=== PATIENT | male | born 1940 | race Caucasian/White ===

== ENCOUNTER 2016-05-20 17:49 | Observation (INO) | payer OTHER ==
[~2016-05-20] VITALS: Ht 165.1 cm; Wt 83.0 kg
[~2016-05-20 17:49] MED LIST: ASPI325T PO; ATOR80TA PO; DIAZ10TA PO; FISH100020 PO; GLYB1TAB51 PO; LACT PO; LISI10TA PO; METF-324 OR; METR-1 PO; RANI150 PO
[2016-05-20 18:09] VITALS: BP 144/71; PULSE 100; RESP 20; TEMP 98.6; O2SAT 96
--- NOTE | 2016-05-20 18:43 | RADRPT ---
EXAM DATE/TIME: 05/20/2016 18:24 [facility] COMPARISON: CHEST SINGLE AP, May 04, 2016, 3:29. INDICATIONS : Tingling in left hand. MEDICAL HISTORY : 3 heart attacks. SURGICAL HISTORY : None. ENCOUNTER: Initial ACUITY: 1 day PAIN SCORE: 0/10 LOCATION: chest FINDINGS: A single view of the chest demonstrates the lungs to be symmetrically aerated without evidence of mas s, infiltrate or effusion. The cardiomediastinal contours are unremarkable. Osseous structures are intact. CONCLUSION: Normal examination for a patient of this age. No significant change has occurred. Baltazar Palacios MD on May 20, 2016 at 18:40 Board Certified Radiologist. This report was verified electronically.
[2016-05-20 18:53] LABS: BLOOD, URINE NEG (NEG); COMMENT (UR) CULT NOT INDICATED; CULTURE IF INDICATED CULT NOT INDICATED; GLUCOSE,URINE NEG (NEG); KETONE, URINE NEG (NEG); NITRITE,URINE NEG (NEG); URINE COLOR LIGHT-YELLOW (YELLW/STRAW)
--- NOTE | 2016-05-20 19:00 | PD ---
HPI Chief Complaint: Numbness/Tingling Time Seen by Provider: 18:48 Travel History International Travel<30 days: No Contact w/Intl Traveler<30days: No Traveled to known affect area: No History of Present Illness HPI The patient is a 76-year-old male who presents emergency department for numbness and tingling. The patient states he developed symptoms 2 days ago the left hand with numbness and tingling of the volar aspect of the entire hand. The patient felt like it was pins and needles and then completely numb. He denied any weakness of the left upper extremity. The patient then developed numbness of the perioral area and the lips. He also notes he said some intermittent numbness of the fourth and fifth digit on the right which has resolved. He denied any weakness or numbness of the lower extremities. The patient denies any history of known neuropathy, however, does have a history of diabetes which is controlled with metformin. He does have a history of heavy alcohol use, however, stopped drinking 20 years ago. The patient denies any difficulty with speech, does state he had dysarthria one week ago secondary to low blood glucose of 30. The [place] primary [place] [facility]. The patient does have a history of hypertension, hyperlipidemia, diabetes, and tobacco use. 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) Migraines: No Myocardial Infarction: Yes (X3) Radiation Therapy: No Renal Failure: No Seizures: No Sickle Cell Disease: No Sleep Apnea: No Thyroid Disease: No Ulcer: No Past Surgical History Abdominal Surgery: No AICD: No Appendectomy: Yes Arteriovenous Shunt: No Cardiac Surgery: Yes Coronary Stent: Yes (about 5 years ago) Ear Surgery: No Endocrine Surgery: No Eye Surgery: No Genitourinary Surgery: Yes (LEFT TESTICLE) Gynecologic Surgery: No Insulin Pump: No Joint Replacement: No Oral Surgery: No Pacemaker: No Thoracic Surgery: No Other Surgery: Yes Social History Alcohol Use: No Tobacco Use: Yes (3 PPD) Substance Use: No Allergies-Medications (Allergen,Severity, Reaction): Coded Allergies: Quinine (Verified Allergy, Severe, UPPER EXTREMITIES BLEED, 05/20/16) Penicillin (Verified Allergy, Mild, UNK, 05/20/16) Sulfa (Verified Allergy, Mild, UNK, 05/20/16) Reported Meds & Prescriptions Reported Meds & Active Scripts Active Reported Ibuprofen 600 Mg Tab 600 Mg PO BID Ranitidine (Ranitidine HCl) 150 Mg Tab 150 Mg PO BID Metformin ER (Metformin HCl) 1,000 Mg Conor 1,000 Mg PO BIDAC With evening meal Lisinopril 10 Mg Tab 10 Mg PO DAILY Glyburide 5 Mg Tab 5 Mg PO BID Take with meals at the same time each day Diazepam 10 Mg Tab 10 Mg PO TID PRN Atorvastatin (Atorvastatin Calcium) 80 Mg Tab 80 Mg PO HS Review of Systems Except as stated in HPI: all other systems reviewed are Neg General / Constitutional: No: Fever HENT: No: Lightheadedness Cardiovascular: No: Chest Pain or Discomfort Respiratory: No: Shortness of Breath Gastrointestinal: No: Nausea, Vomiting, Abdominal Pain Genitourinary: No: Dysuria Musculoskeletal: No: Weakness Neurologic: Positive: Paresthesia, Sensory Disturbance, No: Dizziness, Focal Abnormalities, Coordination Problem, Headache, Change in Mentation Physical Exam Narrative GENERAL: Awake, alert, 76-year-old male who appears his stated age and is in no acute respiratory distress. SKIN: Warm and dry. HEAD: Atraumatic. Normocephalic. EYES: Pupils equal and round. Pupils are 3 mm bilateral and reactive. Patient is able to see fingers at a distance of 2 feet without difficulty. I shocked her muscles are intact. ENT: No nasal bleeding or discharge. Mucous membranes pink and moist. Large.. NECK: Trachea midline. No JVD. CARDIOVASCULAR: Regular rate and rhythm. No murmur appreciated. RESPIRATORY: No accessory muscle use. Clear to auscultation. Breath sounds equal bilaterally. GASTROINTESTINAL: Abdomen soft, non-tender, nondistended. No rebound tenderness. MUSCULOSKELETAL: Chronic venous stasis changes of the lower extremity is bilateral with dry skin. NEUROLOGICAL: Awake and alert. No obvious cranial nerve deficits. Smile is symmetric. No dysarthria. Sensation is symmetric on the V1 and V2 as well as V3 distributions to soft touch. No drift of the upper or lower extremities. Slightly decreased sensation to left lower extremity to soft touch. Decreased sensation over the radial, median, and ulnar distribution of the left hand, but does not affect the left forearm. Left and right forearm are symmetric to soft touch bilaterally. Finger to nose is normal. PSYCHIATRIC: Appropriate mood and affect; insight and judgment normal. Data Data Last Documented VS Vital Signs Date Time Temp Pulse Resp B/P Pulse Ox O2 Delivery O2 Flow Rate FiO2 05/20/16 19:15 96 Room Air 05/20/16 19:15 98.9 89 20 139/65 Orders Electrocardiogram (05/20/16 18:12) Complete Blood Count With Diff (05/20/16 18:12) Basic Metabolic Panel (Bmp) (05/20/16 18:12) Ckmb (Isoenzyme) Profile (05/20/16 18:12) Troponin I (05/20/16 18:12) Chest, Single Ap (05/20/16 18:12) Iv Access Insert/Monitor (05/20/16 18:12) Ecg Monitoring (05/20/16 18:12) Oxygen Administration (05/20/16 18:12) Oximetry (05/20/16 18:12) Coag Profile (05/20/16 18:12) Urinalysis - C+S If Indicated (05/20/16 18:15) Ct Brain W/O Iv Contrast(Rout) (05/20/16 ) Ct Cerv Spine W/O Contrast (05/20/16 ) CKMB (05/20/16 18:21) CKMB% (05/20/16 18:21) Labs Laboratory Tests Test 05/20/16 18:21 White Blood Count 8.7 TH/MM3 Red Blood Count 5.10 MIL/MM3 Hemoglobin 15.0 GM/DL Hematocrit 43.5 % Mean Corpuscular Volume 85.3 FL Mean Corpuscular Hemoglobin 29.3 PG Mean Corpuscular Hemoglobin 34.4 % Concent Red Cell Distribution Width 14.8 % Platelet Count 227 TH/MM3 Mean Platelet Volume 9.2 FL Neutrophils (%) (Auto) 69.2 % Lymphocytes (%) (Auto) 19.2 % Monocytes (%) (Auto) 7.9 % Eosinophils (%) (Auto) 3.0 % Basophils (%) (Auto) 0.7 % Neutrophils # (Auto) 6.0 TH/MM3 Lymphocytes # (Auto) 1.7 TH/MM3 Monocytes # (Auto) 0.7 TH/MM3 Eosinophils # (Auto) 0.3 TH/MM3 Basophils # (Auto) 0.1 TH/MM3 CBC Comment DIFF FINAL Differential Comment Prothrombin Time 10.6 SEC Prothromb Time International 1.0 RATIO Ratio Activated Partial 26.8 SEC Thromboplast Time Urine Color LIGHT-YELLOW Urine Turbidity CLEAR Urine pH 7.0 Urine Specific [place] 1.011 Urine Protein NEG mg/dL Urine Glucose (UA) NEG mg/dL Urine Ketones NEG mg/dL Urine Occult Blood NEG Urine Nitrite NEG Urine Bilirubin NEG Urine Urobilinogen LESS THAN 2.0 MG/DL Urine Leukocyte Esterase NEG Urine RBC LESS THAN 1 /hpf Urine WBC LESS THAN 1 /hpf Microscopic Urinalysis Comment CULT NOT INDICATED Sodium Level 136 MEQ/L Potassium Level 4.2 MEQ/L Chloride Level 102 MEQ/L Carbon Dioxide Level 24.6 MEQ/L Anion Gap 9 MEQ/L Blood Urea Nitrogen 23 MG/DL Creatinine 1.10 MG/DL Estimat Glomerular Filtration 65 ML/MIN Rate Random Glucose 154 MG/DL Calcium Level 8.5 MG/DL Total Creatine Kinase 107 U/L Creatine Kinase MB 2.2 NG/ML Troponin I LESS THAN 0.02 NG/ML MDM Medical Decision Making Medical Screen Exam Complete: Yes Emergency Medical Condition: Yes Medical Record Reviewed: Yes Interpretation(s) EKG reveals normal sinus rhythm with a rate in 96. Low QRS voltage precordial leads. RSR prime in V1 with QRS 105 ms, incomplete right bundle branch block. Q wave noted in lead 3 and aVF. Last Impressions Chest X-Ray 05/20/162 Signed Impressions: Service Date/Time: Friday, May 20, 2016 18:24 - CONCLUSION: Normal examination for a patient of this age. No significant change has occurred. Baltazar Palacios MD Head CT 05/20/16 0000 Signed Impressions: Service Date/Time: Friday, May 20, 2016 18:57 - CONCLUSION: 1. No acute findings. Stable ischemic changes in the periventricular white matter compared with 2012. Baltazar Palacios MD Cervical Spine CT 05/20/16 0000 Signed Impressions: Service Date/Time: Friday, May 20, 2016 18:59 - CONCLUSION: 1. Focally severe degenerative disc disease at C5-6 with moderate to severe AP canal stenosis and likely impingement on the cord with bilateral bony neural foraminal encroachment. No acute bony abnormalities. Baltazar Palacios MD Laboratory Tests Test 05/20/16 18:21 White Blood Count 8.7 TH/MM3 Red Blood Count 5.10 MIL/MM3 Hemoglobin 15.0 GM/DL Hematocrit 43.5 % Mean Corpuscular Volume 85.3 FL Mean Corpuscular Hemoglobin 29.3 PG Mean Corpuscular Hemoglobin 34.4 % Concent Red Cell Distribution Width 14.8 % Platelet Count 227 TH/MM3 Mean Platelet Volume 9.2 FL Neutrophils (%) (Auto) 69.2 % Lymphocytes (%) (Auto) 19.2 % Monocytes (%) (Auto) 7.9 % Eosinophils (%) (Auto) 3.0 % Basophils (%) (Auto) 0.7 % Neutrophils # (Auto) 6.0 TH/MM3 Lymphocytes # (Auto) 1.7 TH/MM3 Monocytes # (Auto) 0.7 TH/MM3 Eosinophils # (Auto) 0.3 TH/MM3 Basophils # (Auto) 0.1 TH/MM3 CBC Comment DIFF FINAL Differential Comment Prothrombin Time 10.6 SEC Prothromb Time International 1.0 RATIO Ratio Activated Partial 26.8 SEC Thromboplast Time Urine Color LIGHT-YELLOW Urine Turbidity CLEAR Urine pH 7.0 Urine Specific [place] 1.011 Urine Protein NEG mg/dL Urine Glucose (UA) NEG mg/dL Urine Ketones NEG mg/dL Urine Occult Blood NEG Urine Nitrite NEG Urine Bilirubin NEG Urine Urobilinogen LESS THAN 2.0 MG/DL Urine Leukocyte Esterase NEG Urine RBC LESS THAN 1 /hpf Urine WBC LESS THAN 1 /hpf Microscopic Urinalysis Comment CULT NOT INDICATED Sodium Level 136 MEQ/L Potassium Level 4.2 MEQ/L Chloride Level 102 MEQ/L Carbon Dioxide Level 24.6 MEQ/L Anion Gap 9 MEQ/L Blood Urea Nitrogen 23 MG/DL Creatinine 1.10 MG/DL Estimat Glomerular Filtration 65 ML/MIN Rate Random Glucose 154 MG/DL Calcium Level 8.5 MG/DL Total Creatine Kinase 107 U/L Creatine Kinase MB 2.2 NG/ML Troponin I LESS THAN 0.02 NG/ML Differential Diagnosis Differential diagnoses includes neuropathy, cervical radiculopathy, B-12 deficiency, TIA, CVA, intracranial hemorrhage, carpal tunnel syndrome, ulnar compartment syndrome, hypocalcemia, hypokalemia. Narrative Course IV was established, labs are drawn and sent, and the patient was monitored in the emergency department. CT of the brain and cervical spine were ordered. Chest x-ray was ordered. EKG was ordered and interpreted. Calcium and potassium levels were sent to lab. Calcium and potassium are unremarkable. CT of the brain reveals chronic ischemic white periventricular changes, but no acute infarct. CT the cervical spine does reveal severe impingement at the C5 6 level with possible encroachment on the spinal cord. The patient may have CVA versus neuropathy from spinal stenosis, patient would benefit from MRI of the brain and cervical spine. The patient's primary physician is the [place] [facility]. Therefore, [facility] were paged for admission. The patient will have MRI to rule out CVAs the cause of the numbness to left upper extremity. Patient also have MRI of the cervical spine through evaluate for possible radiculopathy, spinal cord impingement, myelopathy affect in the left upper extremity. If MRI of the cervical spine is positive, patient may benefit from neurosurgical consultation. Patient is comfortable with this plan of care. Physician Communication Physician Communication [facility] were p[facility] for 23 hour observation. I discussed the patient with Dr. Brito who agrees with 23 hour observation. Diagnosis Primary Impression: Paresthesias Admitting Information Admitting Physician Requests: Observation Condition: Stable Manuel Garzon MD May 20, 2016 19:00
[2016-05-20 19:02] LABS: BASOPHIL # 0.1 TH/MM3 (0-0.2); BASOPHIL % 0.7 % (0.0-2.0); EOSINOPHIL # 0.3 TH/MM3 (0-0.4); HEMATOCRIT 43.5 % (39.0-51.0); HEMO FLAGS DIFF FINAL; LYMPH % 19.2 % (9.0-44.0); LYMPHOCYTE # 1.7 TH/MM3 (1.0-4.8); MEAN CELL VOLUME 85.3 FL (80.0-100.0); MEAN CORPUSCULAR HEMOGLOBIN 29.3 PG (27.0-34.0); MEAN CORPUSCULAR HGB CONC 34.4 % (32.0-36.0); MONO % 7.9 % (0.0-8.0); NEUT % 69.2 % (16.0-70.0); PLATELET COUNT 227 TH/MM3 (150-450); RED CELL DISTRIBUTION WIDTH 14.8 % (11.6-17.2); WHITE BLOOD COUNT 8.7 TH/MM3 (4.0-11.0)
[2016-05-20 19:08] LABS: APTT (PATIENT) 26.8 SEC (24.3-30.1); PROTHROMBIN TIME - PATIENT 10.6 SEC (9.8-11.6)
[2016-05-20 19:15] VITALS: BP 139/65; PULSE 89; RESP 20; TEMP 98.9; O2SAT 96
[2016-05-20 19:16] LABS: ANION GAP 9 MEQ/L (5-15); BICARBONATE 24.6 MEQ/L (21.0-32.0); BLOOD UREA NITROGEN 23 MG/DL (7-18); CHLORIDE 102 MEQ/L (98-107); CREATINE KINASE 107 U/L (39-308); GLOMERULAR FILTRATION RATE 65 ML/MIN (>89); POTASSIUM 4.2 MEQ/L (3.5-5.1); SODIUM (NA) 136 MEQ/L (136-145)
--- NOTE | 2016-05-20 19:16 | RADRPT ---
EXAM DATE/TIME: 05/20/2016 18:57 [facility] COMPARISON: No previous studies available for comparison. INDICATIONS : Numbness in left hand X 2 weeks. RADIATION DOSE: 56.35 CTDIvol (mGy) MEDICAL HISTORY : Cerebrovascular disease. Cardiovascular disease Hypertension. Diabetes SURGICAL HISTORY : None. ENCOUNTER: Initial ACUITY: 2 weeks PAIN SCALE: 3/10 LOCATION: cranial TECHNIQUE: Multiple contiguous axial images were obtained of the head. Using automated exposure control and adj ustment of the mA and/or kV according to patient size, radiation dose was kept as low as reasonably a chievable to obtain optimal diagnostic quality images. FINDINGS: CEREBRUM: The ventricles are normal for age. No evidence of midline shift, mass lesion, hemorrhage or acute in farction. No extra-axial fluid collections are seen. POSTERIOR FOSSA: The cerebellum and brainstem are intact. The 4th ventricle is midline. The cerebellopontine angle i s unremarkable. EXTRACRANIAL: The visualized portion of the orbits is intact. SKULL: The calvaria is intact. No evidence of skull fracture. CONCLUSION: 1. No acute findings. Stable ischemic changes in the periventricular white matter compared with 2012. Baltazar Palacios MD on May 20, 2016 at 19:11 Board Certified Radiologist. This report was verified electronically.
[2016-05-20] MEDS ORDERED: METF-382 PO (19:22)
[2016-05-20] MEDS ORDERED: ATOR1TAB18 PO (19:22)
[2016-05-20] MEDS ORDERED: LISI10TA3 PO (19:22)
[2016-05-20] MEDS ORDERED: IBUP-232 PO (19:22)
[2016-05-20] MEDS ORDERED: DIAZ10TA PO (19:22)
[2016-05-20] MEDS ORDERED: GLYB5TAB3 PO (19:22)
[2016-05-20] MEDS ORDERED: RANI150T PO (19:22)
--- NOTE | 2016-05-20 19:30 | RADRPT ---
EXAM DATE/TIME: 05/20/2016 18:59 [facility] COMPARISON: No previous studies available for comparison. INDICATIONS : Left hand tingling and numbness X 2 weeks. RADIATION DOSE: 33.79 CTDIvol (mGy) MEDICAL HISTORY : Cerebrovascular disease. Cardiovascular disease Hypertension.Diabetes SURGICAL HISTORY : None. ENCOUNTER: Initial ACUITY: 1 day PAIN SCALE: 3/10 LOCATION: neck TECHNIQUE: Volumetric scanning of the cervical spine was performed. Multiplanar reconstructions in the sagittal, coronal and oblique axial planes were performed. Using automated exposure control and adjustment o f the mA and/or kV according to patient size, radiation dose was kept as low as reasonably achievable to obtain optimal diagnostic quality images. FINDINGS: There is moderate to severe degenerative disc disease in the cervical spine with slight reversal of t he normal cervical lordosis. There is moderate to severe AP canal stenosis at C5-6 with some flatteni ng of the cord. No acute fracture. No significant spondylolisthesis. CONCLUSION: 1. Focally severe degenerative disc disease at C5-6 with moderate to severe AP canal stenosis and lik norman impingement on the cord with bilateral bony neural foraminal encroachment. No acute bony abnormal ities. Baltazar Palacios MD on May 20, 2016 at 19:26 Board Certified Radiologist. This report was verified electronically.
[2016-05-20 19:31] LABS: CKMB 2.2 NG/ML (0.5-3.6)
[2016-05-20] MEDS ORDERED: ASPIRIN 81 MG CHEW TAB CHEW ONE (20:00)
[2016-05-20] MEDS ORDERED: DEXTROSE 50% IN WATER 50 ML VIAL(D50) IV PUSH PRN (20:00)
[2016-05-20] MEDS ORDERED: ACETAMINOPHEN/HYDROcodone 325 MG/5 MG TAB PO PRN (20:00)
[2016-05-20] MEDS ORDERED: ACETAMINOPHEN/HYDROcodone 325 MG/10 MG TAB PO PRN (20:00)
[2016-05-20] MEDS ORDERED: GLUCAGON 1 MG/ML VIAL OTHER PRN (20:00)
[2016-05-20] MEDS ORDERED: SODIUM CHLORIDE 0.9% FLUSH 5 ML FLUSH FLUSH PRN (20:00)
--- NOTE | 2016-05-20 20:24 | HHI.HP ---
[facility] Ad[facility] Diagnosis CVA versus cervical stenosis/spinal cord impingement Diagnoses: (1) Paresthesias Diagnosis: Principal (2) Cervical spinal cord compression Diagnosis: Principal (3) HTN (hypertension) Diagnosis: Principal (4) DM (diabetes mellitus) Diagnosis: Principal (5) Tobacco abuse Diagnosis: Principal Travel History International Travel<30 Days: No Contact w/Intl Traveler <30 Da: No Traveled to Known Affected Are: No History of Present Illness This is a 76 year old male with a PMH of HTN, CAD, h/o CVA and DM who came to the ER w/ complaints of left hand numbness and tingling x2 days. Denies weakness, facial droop or slurred speech, however today noted numbness/tingling of lips and decided to come to ER. On arrival, BP 144/71, HR 100, O2 sat 96% on RA, Afebrile. CBC normal. Chemistry essentially unremarkable. UA negative. CXR with no acute findings. CT Head with no acute findings, stable ischemic changes. CT Cervical Spine with severe degenerative disc disease at C5 -6 with moderate to severe AP canal stenosis and likely impingement on the cord. MRI Brain/C-Spine ordered in ER to eval for possible CVA. Review of Systems Other ROS: 14 point review of systems otherwise negative. Past Family Social History Past Medical History PMH: HTN, CAD, h/o CVA and DM Past Surgical History PAST SURGICAL HISTORY: Appendectomy, Cardiac Stent Allergies: Coded Allergies: Quinine (Verified Allergy, Severe, UPPER EXTREMITIES BLEED, 05/20/16) Penicillin (Verified Allergy, Mild, UNK, 05/20/16) Sulfa (Verified Allergy, Mild, UNK, 05/20/16) Family History PAST FAMILY HISTORY: Reviewed. No h/o DM or CAD Social History PAST SOCIAL HISTORY: Negative for alcohol or drugs. Smokes 3ppd. Physical Exam Vital Signs Vital Signs Date Time Temp Pulse Resp B/P Pulse Ox O2 Delivery O2 Flow Rate FiO2 05/20/16 19:15 96 Room Air 05/20/16 19:15 96 05/20/16 19:15 96 Room Air 05/20/16 19:15 98.9 89 20 139/65 96 Room Air 05/20/16 18:09 98.6 100 20 144/71 96 Physical Exam PE: GENERAL: Elderly male in no acute distress. HEENT: PERRLA, EOMI. No scleral icterus or conjunctival pallor. No lid lag or facial droop. CARDIOVASCULAR: Regular rate and rhythm. No obvious murmurs to auscultation. No chest tenderness to palpation. RESPIRATORY: No obvious rhonchi or wheezing. Clear to auscultation. Breath sounds equal bilaterally. GASTROINTESTINAL: Abdomen soft, non-tender, nondistended. BS normal. MUSCULOSKELETAL: Extremities without clubbing, cyanosis, or edema. No obvious deformities. NEUROLOGICAL: Awake, alert and oriented x4. LUE decreased sensation left hand/ fingers. Moving both upper and lower extremities spontaneously. Laboratory Laboratory Tests Test 05/20/16 18:21 White Blood Count 8.7 Red Blood Count 5.10 Hemoglobin 15.0 Hematocrit 43.5 Mean Corpuscular Volume 85.3 Mean Corpuscular Hemoglobin 29.3 Mean Corpuscular Hemoglobin 34.4 Concent Red Cell Distribution Width 14.8 Platelet Count 227 Mean Platelet Volume 9.2 Neutrophils (%) (Auto) 69.2 Lymphocytes (%) (Auto) 19.2 Monocytes (%) (Auto) 7.9 Eosinophils (%) (Auto) 3.0 Basophils (%) (Auto) 0.7 Neutrophils # (Auto) 6.0 Lymphocytes # (Auto) 1.7 Monocytes # (Auto) 0.7 Eosinophils # (Auto) 0.3 Basophils # (Auto) 0.1 CBC Comment DIFF FINAL Differential Comment Prothrombin Time 10.6 Prothromb Time International 1.0 Ratio Activated Partial 26.8 Thromboplast Time Urine Color LIGHT-YELLOW Urine Turbidity CLEAR Urine pH 7.0 Urine Specific [place] 1.011 Urine Protein NEG Urine Glucose (UA) NEG Urine Ketones NEG Urine Occult Blood NEG Urine Nitrite NEG Urine Bilirubin NEG Urine Urobilinogen LESS THAN 2.0 Urine Leukocyte Esterase NEG Urine RBC LESS THAN 1 Urine WBC LESS THAN 1 Microscopic Urinalysis Comment CULT NOT INDICATED Sodium Level 136 Potassium Level 4.2 Chloride Level 102 Carbon Dioxide Level 24.6 Anion Gap 9 Blood Urea Nitrogen 23 Creatinine 1.10 Estimat Glomerular Filtration 65 Rate Random Glucose 154 Calcium Level 8.5 Total Creatine Kinase 107 Creatine Kinase MB 2.2 Troponin I LESS THAN 0.02 Result Diagram: 05/20/16182005/20/161820 Assessment and Plan Problem List: (1) Paresthesias ICD Code: R20.2 Status: Acute (2) Cervical spinal cord compression ICD Code: G95.20 Status: Acute (3) HTN (hypertension) ICD Code: I10 Status: Acute (4) DM (diabetes mellitus) ICD Code: E11.9 Status: Acute (5) Tobacco abuse ICD Code: Z72.0 Status: Acute Assessment and Plan A/P: 1. Paresthesias: left hand numbness/tingling x2 days, no facial droop/slurred speech or motor weakness. CT Head w/ no acute findings, CT C-Spine w/ canal stenosis C5-6 w/ possible cord impingement, images reviewed by me. MRI Brain/C- Spine currently pending. NeuroSx eval depending on results. 2. HTN: Controlled. Resume home Lisinopril. 3. DM: Sliding scale w/ Accu-Cheks. Hold Metformin for now, continue Glyburide. 4. Tobacco Abuse: Pt counselled. Ativan prn. No NicoDerm to avoid vasoconstriction. 5. DVT Prophylaxis: SCD/Teds. 6. Social work for d/c planning as needed. 7. Case discussed w/ ER physician at length. Padmini Brito MD May 20, 2016 20:24
[2016-05-20] MEDS ORDERED: BISACODYL 10 MG SUPP PR PRN (21:00)
[2016-05-20] MEDS ORDERED: DIAZEPAM 10 MG TAB PO PRN (21:00)
[2016-05-20] MEDS ORDERED: ONDANSETRON HCL 4 MG/2 ML VIAL IVP PRN (21:00)
[2016-05-20] MEDS ORDERED: ACETAMINOPHEN 325 MG TAB PO PRN (21:00)
--- NOTE | 2016-05-20 21:13 | RADRPT ---
EXAM DATE/TIME: 05/20/2016 20:44 [facility] COMPARISON: No previous studies available for comparison. INDICATIONS : Left sided weakness. MEDICAL HISTORY : Hypertension. Diabetes mellitus type 2. Hypercholesterolemia. SURGICAL HISTORY : Coronary artery stent. ENCOUNTER: Initial ACUITY: 1 day PAIN SCORE: 0/10 LOCATION: cranial TECHNIQUE: Multiplanar, multisequence MRI of the brain was performed without contrast. FINDINGS: CEREBRUM: The ventricles are normal for age. No evidence of midline shift, mass lesion, hemorrhage or acute in farction. No extraaxial fluid collections are seen. The pituitary gland and suprasellar cistern are normal in configuration. WHITE MATTER: Mild signal abnormalities are seen in the white matter. POSTERIOR FOSSA: The cerebellum and brainstem are intact. The 4th ventricle is midline. The cerebellopontine angle is unremarkable. The cerebellar tonsils are normal in position. DIFFUSION IMAGING: No focal areas of restricted diffusion are seen. No evidence of acute infarction. EXTRACRANIAL: The visualized portions of the orbits and paranasal sinuses are unremarkable. CONCLUSION: 1. No acute findings. Mild chronic white matter ischemic changes. No recent infarct. No mass, hemorrh age or midline shift. Baltazar Palacios MD on May 20, 2016 at 21:09 Board Certified Radiologist. This report was verified electronically.
--- NOTE | 2016-05-20 21:34 | EKG ---
Date Performed: 05/20/2016 Time Performed: 18:30:31 PTAGE: 76 years EKG: Sinus rhythm LOW QRS VOLTAGE IN PRECORDIAL LEADS INCOMPLETE RIGHT BUNDLE BRANCH BLOCK POSSIBLE OLD INFERIOR MYOCA RDIAL INFARCTION ANTEROLATERAL MYOCARDIAL INFARCTION ABNORMAL ECG PREVIOUS TRACING : 05/04/2016 03.40 No significant change DOCTOR: Theodore Bennett Interpretating Date/Time 05/20/2016 21:33:31
--- NOTE | 2016-05-20 21:51 | RADRPT ---
EXAM DATE/TIME: 05/20/2016 20:44 [facility] COMPARISON: No previous studies available for comparison. INDICATIONS : Left side weakness. MEDICAL HISTORY : Hypertension. Diabetes mellitus type 2. Hypercholesterolemia. SURGICAL HISTORY : Coronary artery stent. ENCOUNTER: Initial ACUITY: 1 day PAIN SCORE: 0/10 LOCATION: neck TECHNIQUE: Multiplanar, multisequence MRI examination of the cervical spine was performed. FINDINGS: At C2-3 there is no significant abnormality. At C3-4 there is a right paracentral disc protrusion resulting in moderate stenosis and mild flatteni ng of the cord. At C4-5 there is a broad-based posterior disc osteophyte complex with moderate AP canal stenosis and flattening of the cord. Moderate bilateral neural foraminal stenosis. At C5-6 there is a broad-based posterior disc osteophyte complex with moderate AP canal stenosis and mild flattening of the cord. Moderate left neural foraminal stenosis. C6-7 reveals broad-based posterior disc osteophyte complex with mild AP canal stenosis and effacement of the thecal sac. Mild left neural foraminal stenosis. At C7-T1 there is no significant abnormality. CONCLUSION: 1. At C3-4-5-6 there is posterior disc disease and osteophytic ridging resulting in at least moderate canal stenosis and flattening of the cord. Severe degenerative disc disease at C5-6. No cord signal abnormality. No acute fracture. Reversal of normal cervical lordosis. Baltazar Palacios MD on May 20, 2016 at 21:44 Board Certified Radiologist. This report was verified electronically.
[2016-05-20] MEDS: INSULIN ASPART SUPPLEMENTAL SCALE SQ SCH (23:55)
[2016-05-20] MEDS: glyBURIDE 5 MG TAB PO SCH (23:55)
[2016-05-20] MEDS: FAMOTIDINE 20 MG TAB PO SCH (23:56)
[2016-05-20] MEDS: SODIUM CHLORIDE 0.9% FLUSH 5 ML FLUSH FLUSH SCH (23:56)
[2016-05-20] MEDS: ATORVASTATIN 80 MG TAB PO SCH (23:56)
[2016-05-21] VITALS (7 sets, daily range): BP systolic 108–154; BP diastolic 64–81; PULSE 64–94; RESP 18–21; TEMP 97.5–98.1; O2SAT 91–99
[2016-05-21] MEDS: INSULIN ASPART SUPPLEMENTAL SCALE SQ SCH ×4 (06:16→22:04)
[2016-05-21 06:25] LABS: AUTOMATED NEUTROPHIL # 6.6 TH/MM3 (1.8-7.7); BASOPHIL # 0.1 TH/MM3 (0-0.2); BASOPHIL % 0.7 % (0.0-2.0); EOSINOPHIL # 0.4 TH/MM3 (0-0.4); EOSINOPHIL % 3.8 % (0.0-4.0); HEMATOCRIT 43.5 % (39.0-51.0); HEMO FLAGS DIFF FINAL; MEAN CELL VOLUME 85.1 FL (80.0-100.0); MEAN CORPUSCULAR HEMOGLOBIN 28.7 PG (27.0-34.0); MEAN CORPUSCULAR HGB CONC 33.7 % (32.0-36.0); NEUT % 65.5 % (16.0-70.0); PLATELET COUNT 228 TH/MM3 (150-450); RED BLOOD COUNT 5.12 MIL/MM3 (4.50-5.90); RED CELL DISTRIBUTION WIDTH 14.7 % (11.6-17.2); WHITE BLOOD COUNT 10.1 TH/MM3 (4.0-11.0)
[2016-05-21 06:50] LABS: ALT (GPT) 34 U/L (12-78); ANION GAP 7 MEQ/L (5-15); AST (GOT) 20 U/L (15-37); BICARBONATE 26.4 MEQ/L (21.0-32.0); BLOOD UREA NITROGEN 22 MG/DL (7-18); CHLORIDE 105 MEQ/L (98-107); GLOMERULAR FILTRATION RATE 73 ML/MIN (>89); POTASSIUM 4.3 MEQ/L (3.5-5.1); SODIUM (NA) 138 MEQ/L (136-145)
[2016-05-21 06:51] LABS: ALKALINE PHOSPHATASE 957 U/L (45-117); TOTAL BILIRUBIN ADULT 0.3 MG/DL (0.2-1.0)
[2016-05-21] MEDS ORDERED: ENALAPRILAT 1.25 MG/ML VIAL IV PRN (08:00)
[2016-05-21] MEDS ORDERED: cloNIDine HCL 0.1 MG TAB PO PRN (08:00)
[2016-05-21] MEDS ORDERED: RESP: ALBUTEROL 2.5 MG/3 ML NEB (PRN) INH (10:00)
[2016-05-21] MEDS ORDERED: AZITHROMYCIN 250 MG TAB PO ONE (10:00)
[2016-05-21] MEDS: FAMOTIDINE 20 MG TAB PO SCH ×2 (11:09→22:02)
[2016-05-21] MEDS: LISINOPRIL 10 MG TAB PO SCH (11:09)
[2016-05-21] MEDS: glyBURIDE 5 MG TAB PO SCH ×2 (11:09→22:02)
[2016-05-21] MEDS: methylPREDNISolone SOD SUCC 125 MG/2 ML VIAL IVP SCH ×3 (11:10→22:03)
[2016-05-21] MEDS: SODIUM CHLORIDE 0.9% FLUSH 5 ML FLUSH FLUSH SCH ×2 (11:10→22:04)
[2016-05-21] MEDS: NICOTINE 21 MG/24 HR PATCH TD SCH ×2 (11:11→12:55)
--- NOTE | 2016-05-21 11:39 | HHI.PR ---
Subjective Remarks Follow-up for hand numbness. The patient continues to complain of left hand numbness. Also gets a pins and needles sensation in that hand. He denies any pain. Has been ambulating without difficulties. The patient was noted to be wheezing, he states he has noticed he has been wheezing lately. He gets short of breath with exertion. He smokes 2-3 packs per day. Denies ever being diagnosed with COPD. Objective Vitals Vital Signs Date Time Temp Pulse Resp B/P Pulse Ox O2 Delivery O2 Flow Rate FiO2 05/21/16 11:25 97.5 86 18 154/81 96 05/21/16 07:38 97.9 84 18 129/76 91 05/21/16 04:40 98.0 83 18 108/64 98 05/21/16 00:25 98.1 78 21 137/67 99 05/20/16 19:15 96 Room Air 05/20/16 19:15 96 05/20/16 19:15 96 Room Air 05/20/16 19:15 98.9 89 20 139/65 96 Room Air 05/20/16 18:09 98.6 100 20 144/71 96 I/O 05/20/16 05/20/16 05/20/16 05/21/16 05/21/16 05/21/16 07:00 15:00 23:00 07:00 15:00 23:00 Output Total 200 ml Balance -200 ml Output Urine Total 200 ml # Voids 1 Result Diagram: 05/21/16 0523 05/21/16 0525 Imaging Last Impressions Chest X-Ray 05/20/16 1812 Signed Impressions: Service Date/Time: Friday, May 20, 2016 18:24 - CONCLUSION: Normal examination for a patient of this age. No significant change has occurred. Baltazar Palacios MD Head CT 05/20/16 0000 Signed Impressions: Service Date/Time: Friday, May 20, 2016 18:57 - CONCLUSION: 1. No acute findings. Stable ischemic changes in the periventricular white matter compared with 2012. Baltazar Palacios MD Cervical Spine MRI 05/20/16 0000 Signed Impressions: Service Date/Time: Friday, May 20, 2016 20:44 - CONCLUSION: 1. At C3-4-5- 6 there is posterior disc disease and osteophytic ridging resulting in at least moderate canal stenosis and flattening of the cord. Severe degenerative disc disease at C5-6. No cord signal abnormality. No acute fracture. Reversal of normal cervical lordosis. Baltazar Palacios MD Cervical Spine CT 05/20/16 0000 Signed Impressions: Service Date/Time: Friday, May 20, 2016 18:59 - CONCLUSION: 1. Focally severe degenerative disc disease at C5-6 with moderate to severe AP canal stenosis and likely impingement on the cord with bilateral bony neural foraminal encroachment. No acute bony abnormalities. Baltazar Palacios MD Brain MRI 05/20/16 Signed Impressions: Service Date/Time: Friday, May 20, 2016 20:44 - CONCLUSION: 1. No acute findings. Mild chronic white matter ischemic changes. No recent infarct. No mass, hemorrhage or midline shift. Baltazar Palacios MD Objective Remarks GENERAL: Well-developed well-nourished. In no acute distress. SKIN: Warm and dry. Dry scaly skin of the lower extremities. HEENT: Normocephalic. Pupils equal and round. Mucous membranes pink and moist. CARDIOVASCULAR: Regular rate and rhythm. No murmur appreciated. RESPIRATORY: No accessory muscle use. Clear to auscultation. Wheezing on exam. GASTROINTESTINAL: Abdomen soft, non-tender, nondistended. Bowel sounds x4. MUSCULOSKELETAL: No obvious deformities. No clubbing or cyanosis. No edema. NEUROLOGICAL: Awake and alert. No focal neurological deficits. Moves upper and lower extremities spontaneously. Normal speech. PSYCHIATRIC: Appropriate mood and affect; insight and judgment normal. A/P Problem List: (1) Paresthesias ICD Code: R20.2 Status: Acute (2) Cervical spinal cord compression ICD Code: G95.20 Status: Acute (3) HTN (hypertension) ICD Code: I10 Status: Chronic (4) DM (diabetes mellitus) ICD Code: E11.9 Status: Chronic (5) Tobacco abuse ICD Code: Z72.0 Status: Acute (6) COPD (chronic obstructive pulmonary disease) ICD Code: J44.9 Status: Acute Assessment and Plan 76 year old male with a PMH of HTN, CAD, h/o CVA and DM who came to the ER w/ complaints of left hand numbness and tingling x2 days Paresthesias: left hand numbness/tingling x2 days, no facial droop/slurred speech or motor weakness. Images reviewed: CT Head w/ no acute findings, CT C-Spine w/ canal stenosis C5- 6 w/ possible cord impingement. Brain MRI with chronic changes, no acute process. MRI C-Spine with posterior disc disease and osteophytic ridging from C3 to C6 with moderate canal stenosis and flattening of the cord. -Consult neurosurgery -On IV steroids as below COPD with acute exacerbation: Wheezing on exam and history of significant tobacco use. Chest x-ray clear. Start IV steroids. Oral azithromycin. Check sputum culture. Scheduled as needed nebs. HTN: Chronic, stable. Continue home Lisinopril. Clonidine and Vasotec as needed. DM: Sliding scale w/ Accu-Cheks. Continue home metformin and Glyburide. Tobacco Abuse: Pt counselled. Nicotine patch. Lower extremity dry skin/excoriations: Lac-Hydrin cream. DVT Prophylaxis: SCD/Teds. Written by Alexis Blair, acting as scribe for Dr. Howe on 05/21/16 at 10:06. The documentation accurately reflects the work performed [id number] by me on at [id number] Discharge Planning Follow-up neurosurgery recommendations. Problem Qualifiers (1) HTN (hypertension): Qualified Code: I10 - Essential hypertension (2) DM (diabetes mellitus): (3) COPD (chronic obstructive pulmonary disease): Qualified Code: J44.1 - Chronic obstructive pulmonary disease with acute exacerbation Alexis Blair May 21, 2016 11:39 Matt Howe MD May 21, 2016 16:08
[2016-05-21] MEDS: RESP: ALBUTEROL 2.5 MG/IPRATROPIUM 0.5 MG NEB (SCH) INH ×2 (14:59→20:55)
[2016-05-21] MEDS: ATORVASTATIN 80 MG TAB PO SCH (22:02)
[2016-05-21] MEDS: LACTIC ACID (AMMONIUM LACTATE) 12% LOTION 225 GM BTL TOPICAL SCH (22:03)
[2016-05-22] VITALS (8 sets, daily range): BP systolic 127–147; BP diastolic 65–78; PULSE 68–113; RESP 18–21; TEMP 97.6–97.9; O2SAT 93–98
--- NOTE | 2016-05-22 00:08 | PD.CONS ---
History of Present Illness Service Neurosurgery Consult Requested By Medicine service Reason for Consult Unsteady gait Primary Care Physician Jennifer [facility] Diagnoses: History of Present Illness 76-year-old male complains of approximately 6 months of progressive gait unsteadiness. He started using a cane approximately 6 months ago and shortly thereafter began using a walker to ambulate more than a few feet. He states that approximately 04/27/17 he noted that his walking he came quite a bit worse. He states that he fell approximately 6 weeks ago. Also complained of progressive numbness and decreased coordination in the upper extremities for approximately 3 weeks. He has had chronic numbness and some paresthesias in the left greater than right foot with occasional swelling in the feet. He does have a history of diabetes. He has had no urine or bowel incontinence, but complains of increased urinary frequency. He has occasional neck ache. No significant low back pain, but complains of aching and heavy/weak feeling in his buttocks and thighs greater than calves when he walks. He feels that his legs will give out on him if he walks more than a short distance. He indicates that he can only walk approximately 30 or 40 feet without stopping to sit down. Positive intermittent spasm in the upper and lower extremities. Review of Systems Constitutional: COMPLAINS OF: Fatigue, DENIES: Fever Endocrine: DENIES: Heat/cold intolerance Eyes: COMPLAINS OF: Blurred vision, DENIES: Double Vision Ears, nose, mouth, throat: DENIES: Hearing loss, Vertigo, Throat pain Respiratory: COMPLAINS OF: Cough, Sputum production Cardiovascular: COMPLAINS OF: Lower Extremity Edema, Claudication, DENIES: Chest pain, Palpitations, Syncope Gastrointestinal: DENIES: Abdominal pain, Diarrhea, Nausea, Vomiting Genitourinary: COMPLAINS OF: Urinary frequency, DENIES: Urinary incontinence Musculoskeletal: COMPLAINS OF: Joint pain, Muscle aches, Stiffness, Neck pain Hematologic/lymphatic: COMPLAINS OF: Bruising Neurologic: COMPLAINS OF: Abnormal gait, Localized weakness, Paresthesias, Tremor, Poor Balance, DENIES: Headache Psychiatric: DENIES: Anxiety, Depression Past Family Social History Allergies: Coded Allergies: Quinine (Verified Allergy, Severe, UPPER EXTREMITIES BLEED, 05/20/16) Penicillin (Verified Allergy, Mild, UNK, 05/20/16) Sulfa (Verified Allergy, Mild, UNK, 05/20/16) Past Medical History Coronary artery disease 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 Diabetes Dyslipidemia Hypertension Past Surgical History Ganglion cyst resection left wrist Left orchiectomy Cardiac stent placement Reported Medications Reported Meds & Active Scripts Active Reported Ibuprofen 600 Mg Tab 600 Mg PO BID Ranitidine (Ranitidine HCl) 150 Mg Tab 150 Mg PO BID Metformin ER (Metformin HCl) 1,000 Mg Conor 1,000 Mg PO BIDAC With evening meal Lisinopril 10 Mg Tab 10 Mg PO DAILY Glyburide 5 Mg Tab 5 Mg PO BID Take with meals at the same time each day Diazepam 10 Mg Tab 10 Mg PO TID PRN Atorvastatin (Atorvastatin Calcium) 80 Mg Tab 80 Mg PO HS Family History His sister has had a heart attack Father of cancer Social History He smoked 3-1/2 pack cigarettes a day for many years No alcohol or illicit drug use reported Physical Exam Vital Signs Vital Signs Date Time Temp Pulse Resp B/P Pulse Ox O2 Delivery O2 Flow Rate FiO2 05/21/16 20:58 94 21 05/21/16 19:37 98.0 64 18 131/76 98 05/21/16 15:22 97.9 94 18 142/64 95 05/21/16 11:25 97.5 86 18 154/81 96 05/21/16 07:38 97.9 84 18 129/76 91 05/21/16 04:40 98.0 83 18 108/64 98 05/21/16 00:25 98.1 78 21 137/67 99 Physical Exam GENERAL: Pleasant, somewhat disheveled male with somewhat poor hygiene. SKIN: Significant ecchymosis and venous stasis changes in the distal lower extremities. HEAD: Atraumatic. Normocephalic. No temporal or scalp tenderness. EYES: Mild conjunctival erythema. Sclera nonicteric ENT: Poor dentition. No facial edema or ecchymosis. NECK: No significant neck tenderness. 45 rotation, 50 flexion-extension. CARDIOVASCULAR: Regular rate and rhythm without murmurs, gallops, or rubs. RESPIRATORY: Clear to auscultation. Breath sounds equal bilaterally. No wheezes , rales, or rhonchi. GASTROINTESTINAL: Abdomen soft, non-tender, nondistended. Positive bowel sounds MUSCULOSKELETAL: No long bone deformity. Moderate arthritic changes in the hands. Dorsalis pedis pulse and posterior tibial pulses are not palpable. Significant venous stasis skin changes in the distal lower extremities NEUROLOGICAL: Awake and alert Oriented X 3 Speech is clear Conversant and appropriate Follow simple commands well Answers questions appropriately Reasonable judgment and insight Recent and remote memory are intact No evidence of anxiety or depression Pupils are equal and reactive to accommodation. Extra-ocular movements, visual bey to confrontation, facial sensorimotor, tongue, palate, sternocleidomastoid testing, hearing to finger rub testing, and bilateral shoulder shrug are all intact. Sensation is moderately diminished to light touch in both hands with complaints of paresthesias. Sensation is at least moderately diminished light touch in the distal lower extremities primarily dorsal aspect of the right and left foot and posterior lateral greater than medial calf. Strength normal major flexion and extension groups all extremities except for mild weakness left iliopsoas Sha's absent bilaterally No ankle clonus Plantar responses absent bilateral Fine motor movements mildly impaired in the upper extremities No dysmetria He gets out of a chair without assistance and walks with a stiff, slight wide- based at times nearly shuffling type gait with mild ataxia. Laboratory Laboratory Tests Test 05/21/16 05/21/16 05:23 05:25 White Blood Count 10.1 Red Blood Count 5.12 Hemoglobin 14.7 Hematocrit 43.5 Mean Corpuscular Volume 85.1 Mean Corpuscular Hemoglobin 28.7 Mean Corpuscular Hemoglobin 33.7 Concent Red Cell Distribution Width 14.7 Platelet Count 228 Mean Platelet Volume 8.8 Neutrophils (%) (Auto) 65.5 Lymphocytes (%) (Auto) 20.0 Monocytes (%) (Auto) 10.0 Eosinophils (%) (Auto) 3.8 Basophils (%) (Auto) 0.7 Neutrophils # (Auto) 6.6 Lymphocytes # (Auto) 2.0 Monocytes # (Auto) 1.0 Eosinophils # (Auto) 0.4 Basophils # (Auto) 0.1 CBC Comment DIFF FINAL Differential Comment Sodium Level 138 Potassium Level 4.3 Chloride Level 105 Carbon Dioxide Level 26.4 Anion Gap 7 Blood Urea Nitrogen 22 Creatinine 1.00 Estimat Glomerular Filtration 73 Rate Random Glucose 63 Calcium Level 8.8 Total Bilirubin 0.3 Aspartate Amino Transf 20 (AST/SGOT) Alanine Aminotransferase 34 (ALT/SGPT) Alkaline Phosphatase 957 Total Protein 6.9 Albumin 3.4 Date/Time Procedure Status Source Growth 05/21/16 16:00 Gram Stain Received Sputum Expectorated Sputum Pending 05/21/16 16:00 Sputum Culture Received Sputum Expectorated Sputum Pending Result Diagram: 05/21/16 0523 05/21/16 0525 Imaging 05/20/[address] scan brain and cervical spine images reviewed with the patient. Agree with findings as noted below: Chest X-Ray 05/20/16 1812 Signed Impressions: Service Date/Time: Friday, May 20, 2016 18:24 - CONCLUSION: Normal examination for a patient of this age. No significant change has occurred. Baltazar Palacios MD Head CT 05/20/16 0000 Signed Impressions: Service Date/Time: Friday, May 20, 2016 18:57 - CONCLUSION: 1. No acute findings. Stable ischemic changes in the periventricular white matter compared with 2012. Baltazar Palacios MD Cervical Spine MRI 05/20/16 0000 Signed Impressions: Service Date/Time: Friday, May 20, 2016 20:44 - CONCLUSION: 1. At C3-4-5- 6 there is posterior disc disease and osteophytic ridging resulting in at least moderate canal stenosis and flattening of the cord. Severe degenerative disc disease at C5-6. No cord signal abnormality. No acute fracture. Reversal of normal cervical lordosis. Baltazar Palacios MD Cervical Spine CT 05/20/16 0000 Signed Impressions: Service Date/Time: Friday, May 20, 2016 18:59 - CONCLUSION: 1. Focally severe degenerative disc disease at C5-6 with moderate to severe AP canal stenosis and likely impingement on the cord with bilateral bony neural foraminal encroachment. No acute bony abnormalities. Baltazar Palacios MD Brain MRI 05/20/16 0000 Signed Impressions: Service Date/Time: Friday, May 20, 2016 20:44 - CONCLUSION: 1. No acute findings. Mild chronic white matter ischemic changes. No recent infarct. No mass, hemorrhage or midline shift. Baltazar Palacios MD Assessment and Plan Assessment and Plan Impression: 1. 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 No definite allopathic findings on examination, but may be masked by diabetes/neuropathy. 2. Symptoms suggestive of lumbar neurogenic claudication 3. 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 MRI of the lumbar spine is recommended due to symptoms of neurogenic claudication MRI findings will be discussed further with the patient and further treatment options discussed. Continue physical therapy Bird Guzman MD May 22, 2016 00:08
[2016-05-22] MEDS: RESP: ALBUTEROL 2.5 MG/IPRATROPIUM 0.5 MG NEB (SCH) INH ×4 (03:00→19:26)
[2016-05-22] MEDS: methylPREDNISolone SOD SUCC 125 MG/2 ML VIAL IVP SCH (05:23)
[2016-05-22] MEDS: metFORMIN HCL 500 MG TAB PO SCH ×2 (06:00→17:47)
[2016-05-22] MEDS: INSULIN ASPART SUPPLEMENTAL SCALE SQ SCH ×4 (06:01→21:28)
--- NOTE | 2016-05-22 08:33 | RADRPT ---
EXAM DATE/TIME: 05/22/2016 07:56 [facility] COMPARISON: No previous studies available for comparison. INDICATIONS : Radiculopathy. Left side weakness. MEDICAL HISTORY : Arthritis. Diabetes mellitus type 2. Hypertension. High cholesterol. MS x3, pso riasis. SURGICAL HISTORY : Appendectomy. Left testicle removed. ENCOUNTER: Subsequent ACUITY: 2 day PAIN SCORE: 2/10 LOCATION: [facility] TECHNIQUE: Multiplanar multisequence MRI of the lumbar spine was performed without contrast. FINDINGS: There is anterior listhesis of L4 on L5 with discogenic changes. CONUS: Conus is at T12-L1 and unremarkable. T12-L1: The thecal sac has a normal diameter. No evidence of disc bulge or protrusion. The neural foramina are patent bilaterally. L1-L2: The thecal sac has a normal diameter. No evidence of disc bulge or protrusion. The neural f oramina are patent bilaterally. L2-L3: The thecal sac has a normal diameter. No evidence of disc bulge or protrusion. The neural f oramina are patent bilaterally. L3-L4: The thecal sac has a normal diameter. No evidence of disc bulge or protrusion. The neural f oramina are patent bilaterally. L4-L5: There is significant spinal stenosis at L4-L5 with a grade II anterior listhesis of L4 on L5 with extensive degenerative changes in the facets and bilateral neural foraminal encroachment. L5-S1: The thecal sac has a normal diameter. No evidence of disc bulge or protrusion. The neural f oramina are patent bilaterally. Retroperitoneal structures are intact. CONCLUSION: Grade II anterior listhesis of L4 on L5 with significant spinal stenosis and neural foraminal encroac hment. Chad Johnson MD FACR on May 22, 2016 at 8:24 Board Certified Radiologist. This report was verified electronically.
[2016-05-22] MEDS: glyBURIDE 5 MG TAB PO SCH ×2 (09:00→21:24)
--- NOTE | 2016-05-22 09:52 | HHI.PR ---
Subjective Remarks Follow-up for left hand numbness and COPD. The patient complains of a lot of coughing overnight. He denies any shortness of breath. He states his left hand numbness has improved some. He states he does get cramping in his right calf whenever he walks, otherwise no any difficulties ambulating. He has some questions for the surgeon regarding risks of the surgery and risks of not doing the surgery. Objective Vitals Vital Signs Date Time Temp Pulse Resp B/P Pulse Ox O2 Delivery O2 Flow Rate FiO2 05/22/16 07:16 95 21 05/22/16 04:42 97.9 68 21 147/76 98 05/22/16 00:28 97.7 74 18 141/78 98 05/21/16 20:58 94 21 05/21/16 19:37 98.0 64 18 131/76 98 05/21/16 15:22 97.9 94 18 142/64 95 05/21/16 11:25 97.5 86 18 154/81 96 I/O 05/21/16 05/21/16 05/21/16 05/22/16 05/22/16 05/22/16 07:00 15:00 23:00 07:00 15:00 23:00 Intake Total 120 ml Balance 120 ml Intake Oral 120 ml # Voids 1 1 Result Diagram: 05/21/16 0523 05/21/16 0525 Imaging Last Impressions Chest X-Ray 05/20/162 Signed Impressions: Service Date/Time: Friday, May 20, 2016 18:24 - CONCLUSION: Normal examination for a patient of this age. No significant change has occurred. Baltazar Palacios MD Head CT 05/20/16 0000 Signed Impressions: Service Date/Time: Friday, May 20, 2016 18:57 - CONCLUSION: 1. No acute findings. Stable ischemic changes in the periventricular white matter compared with 2012. Baltazar Palcaios MD Cervical Spine MRI 05/20/16 0000 Signed Impressions: Service Date/Time: Friday, May 20, 2016 20:44 - CONCLUSION: 1. At C3-4-5- 6 there is posterior disc disease and osteophytic ridging resulting in at least moderate canal stenosis and flattening of the cord. Severe degenerative disc disease at C5-6. No cord signal abnormality. No acute fracture. Reversal of normal cervical lordosis. Baltazar Palacios MD Cervical Spine CT 05/20/16 0000 Signed Impressions: Service Date/Time: Friday, May 20, 2016 18:59 - CONCLUSION: 1. Focally severe degenerative disc disease at C5-6 with moderate to severe AP canal stenosis and likely impingement on the cord with bilateral bony neural foraminal encroachment. No acute bony abnormalities. Baltazar Palacios MD Brain MRI 05/20/16 0000 Signed Impressions: Service Date/Time: Friday, May 20, 2016 20:44 - CONCLUSION: 1. No acute findings. Mild chronic white matter ischemic changes. No recent infarct. No mass, hemorrhage or midline shift. Baltazar Palacios MD Objective Remarks GENERAL: Well-developed well-nourished. In no acute distress. SKIN: Warm and dry. Dry scaly skin of the lower extremities. HEENT: Normocephalic. Pupils equal and round. Mucous membranes pink and moist. CARDIOVASCULAR: Regular rate and rhythm. No murmur appreciated. RESPIRATORY: No accessory muscle use. Clear to auscultation. No further wheezing. GASTROINTESTINAL: Abdomen soft, non-tender, nondistended. Bowel sounds x4. MUSCULOSKELETAL: No obvious deformities. No clubbing or cyanosis. No edema. NEUROLOGICAL: Awake and alert. No focal neurological deficits. Moves upper and lower extremities spontaneously. Normal speech. Upper extremity strength 5/5. PSYCHIATRIC: Appropriate mood and affect; insight and judgment normal. A/P Problem List: (1) Paresthesias ICD Code: R20.2 Status: Acute (2) Cervical spinal cord compression ICD Code: G95.20 Status: Acute (3) HTN (hypertension) ICD Code: I10 Status: Chronic (4) DM (diabetes mellitus) ICD Code: E11.9 Status: Chronic (5) Tobacco abuse ICD Code: Z72.0 Status: Acute (6) COPD (chronic obstructive pulmonary disease) ICD Code: J44.9 Status: Acute Assessment and Plan 76 year old male with a PMH of HTN, CAD, h/o CVA and DM who came to the ER w/ complaints of left hand numbness and tingling x2 days Paresthesias: left hand numbness/tingling x2 days, no facial droop/slurred speech or motor weakness. Images reviewed: CT Head w/ no acute findings, CT C-Spine w/ canal stenosis C5- 6 w/ possible cord impingement. Brain MRI with chronic changes, no acute process. MRI C-Spine with posterior disc disease and osteophytic ridging from C3 to C6 with moderate canal stenosis and flattening of the cord. Consulted neurosurgery, ordered lumbar MRI Lumbar MRI with significant spinal stenosis at L4-L5 -Follow neurosurgery recommendations -On steroids as below COPD with acute exacerbation: Likely underlying COPD with significant tobacco use history and presented with wheezing on exam. Improvement of wheezing. Chest x-ray clear. Change IV steroids to oral. Continue Oral azithromycin. Sputum culture pending. Scheduled and as needed nebs. Check PFTs. HTN: Chronic, stable. Continue home Lisinopril. Clonidine and Vasotec as needed. DM: Expect her blood glucoses on steroids. Sliding scale w/ Accu-Cheks. Continue home metformin and Glyburide. Tobacco Abuse: Pt counselled. Nicotine patch. Lower extremity dry skin/excoriations: Lac-Hydrin cream. DVT Prophylaxis: SCD/Teds. Written by Alexis Blair, acting as scribe for Dr. Howe on 05/22/16 at 09:52. The documentation accurately reflects the work performed [id number] by me on at [id number] Discharge Planning Follow-up neurosurgery recommendations. Problem Qualifiers (1) HTN (hypertension): Qualified Code: I10 - Essential hypertension (2) DM (diabetes mellitus): (3) COPD (chronic obstructive pulmonary disease): Qualified Code: J44.1 - Chronic obstructive pulmonary disease with acute exacerbation Alexis Blair May 22, 2016 09:52 Matt Howe MD May 22, 2016 14:58
[2016-05-22] MEDS: LISINOPRIL 10 MG TAB PO SCH (09:58)
[2016-05-22] MEDS: FAMOTIDINE 20 MG TAB PO SCH ×2 (09:58→21:24)
[2016-05-22] MEDS: AZITHROMYCIN 250 MG TAB PO SCH (09:58)
[2016-05-22] MEDS: REMOVE OLD NICODERM (NICOTINE) PATCH TD SCH (09:58)
[2016-05-22] MEDS: NICOTINE 21 MG/24 HR PATCH TD SCH (09:58)
[2016-05-22] MEDS: LACTIC ACID (AMMONIUM LACTATE) 12% LOTION 225 GM BTL TOPICAL SCH ×2 (10:00→21:25)
[2016-05-22] MEDS: predniSONE 20 MG TAB PO SCH ×2 (10:00→21:24)
[2016-05-22] MEDS: SODIUM CHLORIDE 0.9% FLUSH 5 ML FLUSH FLUSH SCH ×2 (10:01→21:23)
[2016-05-22] MEDS: ATORVASTATIN 80 MG TAB PO SCH (21:24)
--- NOTE | 2016-05-22 22:53 | HHI.NSPN ---
History Chief Complaint: difficulty with ambulation. Hand numbness Interval History 76-year-old male complains of approximately 6 months of progressive gait unsteadiness. He started using a cane approximately 6 months ago and shortly thereafter began using a walker to ambulate more than a few feet. He states that approximately 04/27/17 he noted that his walking he came quite a bit worse. He states that he fell approximately 6 weeks ago. Also complained of progressive numbness and decreased coordination in the upper extremities for approximately 3 weeks. He has had chronic numbness and some paresthesias in the left greater than right foot with occasional swelling in the feet. He does have a history of diabetes. He has had no urine or bowel incontinence, but complains of increased urinary frequency. He has occasional neck ache. No significant low back pain, but complains of aching and heavy/weak feeling in his buttocks and thighs greater than calves when he walks. He feels that his legs will give out on him if he walks more than a short distance. He indicates that he can only walk approximately 30 or 40 feet without stopping to sit down. Positive intermittent spasm in the upper and lower extremities. Exam Results Vital Signs Date Time Temp Pulse Resp B/P Pulse Ox O2 Delivery O2 Flow Rate FiO2 05/22/16 19:35 97.7 104 20 137/66 94 05/22/16 07:16 21 05/20/16 19:15 Room Air Intake and Output 05/21/16 05/21/16 05/22/16 08:00 16:00 00:00 Intake Total 120 ml Balance 120 ml Physical Examination Awake and alert Sitting up in chair Mild neck and low back tenderness No significant hip pain with range of motion Lower extremity venous stasis with associated skin changes Strength is within normal limits major flexion and extension groups upper and lower extremities except for mild decreased iliopsoas Benites's absent bilateral No ankle clonus Lab, Micro, Other Results 05/22/16 lumbar spine MRI images reviewed. Patient has severe L4 5 stenosis with significant bilateral L5 nerve compression. Lumbar Spine MRI 05/22/16 0000 Signed Impressions: Service Date/Time: Sunday, May 22, 2016 07:56 - CONCLUSION: Grade II anterior listhesis of L4 on L5 with significant spinal stenosis and neural foraminal encroachment. Chad Johnson MD FACR Medical Decision Making Impression and Plan Impression: 1. Cervical spondylosis and degenerative disc disease with secondary moderately severe stenosis 2. Cervical myelopathy 3. Grade 2 L4 5 spondylolisthesis 4.. Severe L4 5 stenosis 5. Neurogenic claudication 6. Possible lumbar radiculopathy based on symptoms and imaging without focal deficit on examination Plan: The cervical and lumbar spine MRI images were reviewed again with the patient today. Options of conservative treatment, interventional pain management, surgical intervention for both the cervical and lumbar spine abnormalities were fully discussed along with pros and cons and prognosis of each. He feels that his gait as well as upper extremity coordination are steadily deteriorating. He would like to proceed with surgical intervention for both the lumbar and cervical abnormalities. I advised him that it would be more prudent to perform the cervical decompression first to minimize the risk of spinal cord compromise during anesthesia for the lumbar procedure. He presently does not have any indication of cauda equina syndrome. I advised him that he must stop smoking prior to proceeding with the surgery. He indicates his willingness to do this. He may be discharged home from a neurosurgical standpoint. He would benefit from home health care with home physical therapy evaluation. He will be scheduled on elective basis in the near future for surgery. Follow-up appointment in approximately 2 weeks. Bird Guzman MD May 22, 2016 22:53
[2016-05-23 04:42] VITALS: BP 134/63; PULSE 72; RESP 20; TEMP 98.2; O2SAT 94
[2016-05-23] MEDS: INSULIN ASPART SUPPLEMENTAL SCALE SQ SCH ×2 (06:37→12:29)
[2016-05-23] MEDS: metFORMIN HCL 500 MG TAB PO SCH (06:39)
[2016-05-23 07:45] VITALS: BP 136/71; PULSE 91; RESP 16; TEMP 97.4; O2SAT 95
[2016-05-23] MEDS: RESP: ALBUTEROL 2.5 MG/IPRATROPIUM 0.5 MG NEB (SCH) INH (08:03)
[2016-05-23] MEDS: REMOVE OLD NICODERM (NICOTINE) PATCH TD SCH (09:00)
[2016-05-23] MEDS: LACTIC ACID (AMMONIUM LACTATE) 12% LOTION 225 GM BTL TOPICAL SCH (09:00)
[2016-05-23] MEDS ORDERED: MENTHOL LOZENGE BUCCAL PRN (09:30)
--- NOTE | 2016-05-23 09:31 | HHI.DS ---
cc: Bird Guzman MD Discharge Summary Admission Date May 20, 2016 at 20:18 Discharge Date: May 23, 2016 Admitting Diagnosis cervical stenosis/spinal cord impingement (1) Paresthesias ICD Code: R20.2 Diagnosis: Principal (2) Cervical spinal cord compression ICD Code: G95.20 Diagnosis: Principal (3) HTN (hypertension) ICD Code: I10 Diagnosis: Secondary (4) DM (diabetes mellitus) ICD Code: E11.9 Diagnosis: Secondary (5) Tobacco abuse ICD Code: Z72.0 Diagnosis: Secondary (6) COPD (chronic obstructive pulmonary disease) ICD Code: J44.9 Procedures No procedures performed to the patient. Brief History - From Admission This is a 76 year old male with a PMH of HTN, CAD, h/o CVA and DM who came to the ER w/ complaints of left hand numbness and tingling x2 days. Denies weakness, facial droop or slurred speech, however today noted numbness/tingling of lips and decided to come to ER. On arrival, BP 144/71, HR 100, O2 sat 96% on RA, Afebrile. CBC normal. Chemistry essentially unremarkable. UA negative. CXR with no acute findings. CT Head with no acute findings, stable ischemic changes. CT Cervical Spine with severe degenerative disc disease at C5 -6 with moderate to severe AP canal stenosis and likely impingement on the cord. MRI Brain/C-Spine ordered in ER to eval for possible CVA. CBC/BMP: 05/21/16 0523 05/21/16 0525 Significant Findings Laboratory Tests Test 05/20/16 05/21/16 05/21/16 18:21 05:23 05:25 Blood Urea Nitrogen 23 MG/DL (7-18) 22 MG/DL (7-18) Estimat Glomerular Filtration 65 ML/MIN (>89) 73 ML/MIN (>89) Rate Random Glucose 154 MG/DL 63 MG/DL (74-106) (74-106) Troponin I LESS THAN 0.02 NG/ML (0.02-0.05) Monocytes (%) (Auto) 10.0 % (0.0-8.0) Monocytes # (Auto) 1.0 TH/MM3 (0-0.9) Alkaline Phosphatase 957 U/L (45-117) Imaging Last Impressions Lumbar Spine MRI 05/22/16 0000 Signed Impressions: Service Date/Time: Sunday, May 22, 2016 07:56 - CONCLUSION: Grade II anterior listhesis of L4 on L5 with significant spinal stenosis and neural foraminal encroachment. Chad Johnson MD FACR Chest X-Ray 05/20/161811 Signed Impressions: Service Date/Time: Friday, May 20, 2016 18:24 - CONCLUSION: Normal examination for a patient of this age. No significant change has occurred. Baltazar Palacios MD Head CT 05/20/16 0000 Signed Impressions: Service Date/Time: Friday, May 20, 2016 18:57 - CONCLUSION: 1. No acute findings. Stable ischemic changes in the periventricular white matter compared with 2012. Baltazar Palacios MD Cervical Spine MRI 05/20/16 0000 Signed Impressions: Service Date/Time: Friday, May 20, 2016 20:44 - CONCLUSION: 1. At C3-4-5- 6 there is posterior disc disease and osteophytic ridging resulting in at least moderate canal stenosis and flattening of the cord. Severe degenerative disc disease at C5-6. No cord signal abnormality. No acute fracture. Reversal of normal cervical lordosis. Baltazar Palacios MD Cervical Spine CT 05/20/16 0000 Signed Impressions: Service Date/Time: Friday, May 20, 2016 18:59 - CONCLUSION: 1. Focally severe degenerative disc disease at C5-6 with moderate to severe AP canal stenosis and likely impingement on the cord with bilateral bony neural foraminal encroachment. No acute bony abnormalities. Baltazar Palacios MD Brain MRI 05/20/16 0000 Signed Impressions: Service Date/Time: Friday, May 20, 2016 20:44 - CONCLUSION: 1. No acute findings. Mild chronic white matter ischemic changes. No recent infarct. No mass, hemorrhage or midline shift. Baltazar Palacios MD PE at Discharge GENERAL: Well-developed well-nourished male patient in [facility]. SKIN: Warm and dry. Dry scaly skin of the lower extremities. HEENT: Normocephalic. Pupils equal and round. Mucous membranes pink and moist. CARDIOVASCULAR: Regular rate and rhythm. No murmur appreciated. RESPIRATORY: No accessory muscle use. Clear to auscultation. No further wheezing. GASTROINTESTINAL: Abdomen soft, non-tender, nondistended. Bowel sounds x4. MUSCULOSKELETAL: No obvious deformities. No clubbing or cyanosis. No edema. NEUROLOGICAL: Awake and alert. No focal neurological deficits. Moves upper and lower extremities spontaneously, 5/5 strength. Normal speech. PSYCHIATRIC: Appropriate mood and affect; insight and judgment normal. Pt update on day of discharge Follow up for left arm paresthesias and COPD exacerbation. The patient reports feeling better today. He does complain of scratchy throat, requesting lozenges. Hospital Course 76 year old male with a PMH of HTN, CAD, h/o CVA and DM who came to the ER w/ complaints of left hand numbness and tingling x2 days Paresthesias secondary to Cervical Cord Impingement and Lumbar Radiculopathy: presented with left hand numbness/tingling x2 days, no facial droop/slurred speech or motor weakness. Images reviewed: CT Head w/ no acute findings, CT C- Spine w/ canal stenosis C5-6 w/ possible cord impingement. Brain MRI with chronic changes, no acute process. MRI C-Spine with posterior disc disease and osteophytic ridging from C3 to C6 with moderate canal stenosis and flattening of the cord. Lumbar spine MRI showed Grade II anterior listhesis of L4 on L5 with significant spinal stenosis and neural foraminal encroachment. Neurosurgery consulted, plan for surgical intervention in the near future, recommends physical therapy and conservative treatment for now, f/up as outpatient in Dr. Guzman's office in 2 weeks. COPD with acute exacerbation: Likely underlying COPD with significant tobacco use history and presented with wheezing on exam. Improvement of wheezing. CXR clear. Changed IV steroids to oral. Continue Oral azithromycin. Sputum culture pending. Scheduled and as needed nebs. Check PFTs. Patient's breathing improved at discharge, no further wheezing. HTN: Chronic, stable. Continue home Lisinopril. Clonidine and Vasotec as needed. DM: Expect her blood glucoses on steroids. Sliding scale w/ Accu-Cheks. Continue home metformin and Glyburide. Tobacco Abuse: Pt counselled. Nicotine patch. Lower extremity dry skin/excoriations: Lac-Hydrin cream. DVT Prophylaxis: SCD/Teds. Written by Yvonne Kay, acting as scribe for Dr. Howe on 05/23/16 at 09:30. The documentation accurately reflects the work performed [id number] by me on at 0930 Pt Condition on Discharge: Stable Discharge Disposition: Discharge Home Discharge Time: > 30 minutes Discharge Instructions DIET: Follow Instructions for: Heart Healthy Diet, Diabetic Diet Activities you can perform: Regular-No Restrictions Activities to Avoid: Driving Follow up Referrals: Neurosurgery - 2 Weeks with Bird Guzman MD PCP Follow-up - [facility] New Medications: Albuterol 18 GM Inh (Ventolin Hfa 18 GM Inh) 90 Mcg/Act Aer 2 PUFF INH Q4-6H PRN SHORTNESS OF BREATH #1 Ref 0 INHALER Azithromycin (Zithromax) 250 Mg Tab 250 MG PO DAILY bronchitis #2 TAB Prednisone (Prednisone) 20 Mg Tab 20 MG PO BID Take 20mg twice a day for 3 days, Then take 20mg once daily for 3 days. COPD #9 TAB Continued Medications: Atorvastatin (Atorvastatin) 80 Mg Tab 80 MG PO HS Cholesterol Management #30 Ref 0 TAB Diazepam (Diazepam) 10 Mg Tab 10 MG PO TID PRN ANXIETY Ref 0 TAB Glyburide (Glyburide) 5 Mg Tab 5 MG PO BID Take with meals at the same time each day Blood Sugar Management # 60 Ref 0 TAB Ibuprofen (Ibuprofen) 600 Mg Tab 600 MG PO BID Arthritis Pain Ref 0 TAB Lisinopril (Lisinopril) 10 Mg Tab 10 MG PO DAILY #30 Ref 0 TAB Metformin ER (Metformin ER) 1,000 Mg Conor 1000 MG PO BIDAC With evening meal Blood Sugar Management #30 Ref 0 TAB Ranitidine (Ranitidine) 150 Mg Tab 150 MG PO BID Heartburn Management #60 Ref 0 TAB Yvonne Kay PA-C May 23, 2016 09:31 Matt Howe MD May 24, 2016 06:07
[2016-05-23] MEDS: AZITHROMYCIN 250 MG TAB PO SCH (09:37)
[2016-05-23] MEDS: FAMOTIDINE 20 MG TAB PO SCH (09:37)
[2016-05-23] MEDS: LISINOPRIL 10 MG TAB PO SCH (09:37)
[2016-05-23] MEDS: NICOTINE 21 MG/24 HR PATCH TD SCH (09:37)
[2016-05-23] MEDS: glyBURIDE 5 MG TAB PO SCH (09:37)
[2016-05-23] MEDS: predniSONE 20 MG TAB PO SCH (09:37)
[2016-05-23] MEDS ORDERED: VENTAER INH (11:10)
[2016-05-23] MEDS ORDERED: PRED20 PO (11:10)
[2016-05-23] MEDS ORDERED: ZITH250T PO (11:10)
--- NOTE | 2016-05-23 11:13 | HHI.DCPOC ---
Discharge Care Plan Diagnosis: (1) Paresthesias (2) Cervical spondylosis with myelopathy and radiculopathy (3) Spondylolisthesis at L4-L5 level (4) Lumbar radiculopathy (5) Neurogenic claudication due to lumbar spinal stenosis (6) DM (diabetes mellitus) (7) HTN (hypertension) (8) COPD (chronic obstructive pulmonary disease) (9) Tobacco abuse Your Health Problems Are: Shortness of Breath Goals to Promote Your Health * To prevent worsening of your condition and complications * To maintain your health at the optimal level Directions to Meet Your Goals Take your medications as prescribed Follow your dietary instruction Follow activity as directed Keep your appointments as scheduled Take your immunizations and boosters as scheduled If your symptoms worsen call your PCP, if no PCP go to Urgent Care Center or Emergency Room Smoking is Dangerous to Your Health. Avoid second hand smoke Call the 24-hour hour crisis hotline for domestic abuse at Yvonne Kay PA-C May 23, 2016 11:13
[2016-05-23 12:05] VITALS: BP 139/73; PULSE 91; RESP 18; TEMP 97.8; O2SAT 96
[2016-05-24] MEDS ORDERED: ZITHTAB PO (01:41)
--- NOTE | 2016-05-30 10:25 | RSPPFT ---
DATE OF PROCEDURE: 05/23/16 COMMENTS: Spirometry with FVC of 2.6, FEV1 of 1.9, FEV1/FVC ratio at 76%. A non-significant response to acutely inhaled bronchodilator noted. IMPRESSION: 1. Moderately severe airways obstruction. 2. Non-significant response to acutely inhaled bronchodilator.
== END 2016-05-23 14:04 | disposition home or self-care (01) ==
LOC: NEPA 17:49 → NEDA 20:18 → NEPHCDU 23:14
PROVIDERS: ADMIT Internal Medicine; ATTEND Internal Medicine
DX: M47.12 Other spondylosis with myelopathy, cervical region (principal); M47.22 Other spondylosis with radiculopathy, cervical region; G95.20 Unspecified cord compression; M48.02 Spinal stenosis, cervical region; M43.16 Spondylolisthesis, lumbar region; M48.06 Spinal stenosis, lumbar region; J44.1 Chronic obstructive pulmonary disease with (acute) exacerbation; I25.10 Atherosclerotic heart disease of native coronary artery without angina pectoris; I10 Essential (primary) hypertension; R94.31 Abnormal electrocardiogram [ECG] [EKG]; E11.42 Type 2 diabetes mellitus with diabetic polyneuropathy; E78.5 Hyperlipidemia, unspecified; E78.00 Pure hypercholesterolemia, unspecified; F17.200 Nicotine dependence, unspecified, uncomplicated; I25.2 Old myocardial infarction; M19.90 Unspecified osteoarthritis, unspecified site; Z95.5 Presence of coronary angioplasty implant and graft; Z86.73 Personal history of transient ischemic attack (TIA), and cerebral infarction without residual deficits; Z91.81 History of falling; Z79.84 Long term (current) use of oral hypoglycemic drugs
CPT/HCPCS: 70450; 70551; 71010; 72125; 72141; 72148; 80048; 80053; 81001; 82550; 82552; 82948; 84484; 85025; 85610; 85730; 87070; 87205; 93005; 94060; 94640; 94664; 99285; G0378; J1815; J2930; J7512

== ENCOUNTER 2016-05-23 21:12 | Emergency (ER) | payer OTHER ==
[~2016-05-23] VITALS: Ht 165.1 cm; Wt 90.0 kg
[~2016-05-23 21:12] MED LIST changes: -ASPI325T PO; +ATOR1TAB18 PO; -ATOR80TA PO; -FISH100020 PO; -GLYB1TAB51 PO; +GLYB5TAB3 PO; +IBUP-232 PO; -LACT PO; -LISI10TA PO; +LISI10TA3 PO; -METF-324 OR; +METF-382 PO; -METR-1 PO; +PRED20 PO; -RANI150 PO; +RANI150T PO; +VENTAER INH; +ZITH250T PO
[2016-05-23 22:16] VITALS: BP 138/63; PULSE 108; RESP 20; TEMP 97.8; O2SAT 100
--- NOTE | 2016-05-23 23:27 | PD ---
HPI Chief Complaint: Diabetic Time Seen by Provider: 23:16 Travel History International Travel<30 days: No Contact w/Intl Traveler<30days: No Traveled to known affect area: No History of Present Illness HPI 76yo M with PMH of DM on metformin, HTN, COPD presents to the ED with c/o elevated blood glucose of 344 at home. Pt also complained of sob and cough for 1 day. Pt was discharged today after work up of left hand numbness and found to have spinal stenosis and has follow up with neurosurgery for possible surgery. Pt states he went home, ate breakfast and saw that his glucose was elevated so wanted to have it evaluated. Denies any fever, n/v, abdominal pain or urinary complaints. PFSH Past Medical History Arthritis: Yes Asthma: No Anxiety: Yes Depression: No Heart Rhythm Problems: No Cancer: No Cardiac Catheterization: Yes Cardiovascular Problems: Yes High Cholesterol: Yes Chemotherapy: No Chest Pain: Yes Congestive Heart Failure: No COPD: No Cerebrovascular Accident: Yes Diabetes: Yes Patient Takes Glucophage: Yes Diminished Hearing: No Endocrine: Yes Gastrointestinal Disorders: Yes GERD: No Genitourinary: Yes Headaches: No Hiatal Hernia: No Heparin Induced Thrombocytopen: No Hypertension: Yes Implanted Vascular Access Dvce: No Kidney Stones: No Musculoskeletal: No Neurologic: Yes Psychiatric: Yes Reproductive: No Respiratory: Yes 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) Migraines: No Myocardial Infarction: Yes (X3) Radiation Therapy: No Renal Failure: No Seizures: No Sickle Cell Disease: No Sleep Apnea: No Thyroid Disease: No Ulcer: No Tetanus Vaccination: < 5 Years Past Surgical History Abdominal Surgery: No AICD: No Appendectomy: Yes Arteriovenous Shunt: No Cardiac Surgery: Yes Coronary Stent: Yes (about 5 years ago) Ear Surgery: No Endocrine Surgery: No Eye Surgery: No Genitourinary Surgery: Yes (LEFT TESTICLE) Gynecologic Surgery: No Insulin Pump: No Joint Replacement: No Neurologic Surgery: No Oral Surgery: No Pacemaker: No Thoracic Surgery: No Other Surgery: Yes Social History Alcohol Use: No Tobacco Use: Yes (3 PPD) Substance Use: No Allergies-Medications (Allergen,Severity, Reaction): Coded Allergies: Quinine (Verified Allergy, Severe, UPPER EXTREMITIES BLEED, 05/23/16) Penicillin (Verified Allergy, Mild, UNK, 05/23/16) Sulfa (Verified Allergy, Mild, UNK, 05/23/16) Reported Meds & Prescriptions Reported Meds & Active Scripts Active Ventolin Hfa 18 GM Inh (Albuterol Sulfate) 90 Mcg/Act Aer 2 Puff INH Q4-6H PRN Prednisone 20 Mg Tab 20 Mg PO BID Take 20mg twice a day for 3 days, Then take 20mg once daily for 3 days. Zithromax (Azithromycin) 250 Mg Tab 250 Mg PO DAILY Reported Ibuprofen 600 Mg Tab 600 Mg PO BID Ranitidine (Ranitidine HCl) 150 Mg Tab 150 Mg PO BID Metformin ER (Metformin HCl) 1,000 Mg Conor 1,000 Mg PO BIDAC With evening meal Lisinopril 10 Mg Tab 10 Mg PO DAILY Glyburide 5 Mg Tab 5 Mg PO BID Take with meals at the same time each day Diazepam 10 Mg Tab 10 Mg PO TID PRN Atorvastatin (Atorvastatin Calcium) 80 Mg Tab 80 Mg PO HS Review of Systems Except as stated in HPI: all other systems reviewed are Neg Physical Exam Narrative GENERAL: 76yo M not in distress. SKIN: Warm and dry. HEAD: Atraumatic. Normocephalic. EYES: Pupils equal and round. No scleral icterus. No injection or drainage. ENT: No nasal bleeding or discharge. Mucous membranes pink and moist. NECK: Trachea midline. No JVD. CARDIOVASCULAR: Regular rate and rhythm. No murmur appreciated. RESPIRATORY: No accessory muscle use. Clear to auscultation. Breath sounds equal bilaterally. GASTROINTESTINAL: Abdomen soft, non-tender, nondistended. No rebound tenderness or guarding. MUSCULOSKELETAL: No obvious deformities. No clubbing. No cyanosis. No edema. NEUROLOGICAL: Awake and alert. No obvious cranial nerve deficits. Motor grossly within normal limits. Normal speech. PSYCHIATRIC: Appropriate mood and affect; insight and judgment normal. Data Data Last Documented VS Vital Signs Date Time Temp Pulse Resp B/P Pulse Ox O2 Delivery O2 Flow Rate FiO2 05/23/16 22:19 109 18 100 Room Air 05/23/16 22:16 97.8 138/63 Orders Complete Blood Count With Diff (05/23/16 23:20) Basic Metabolic Panel (Bmp) (05/23/16 23:20) Urinalysis - C+S If Indicated (05/23/16 23:20) Beta Hydroxybutyrate (Acetone) (05/23/16 23:20) Chest, Single Ap (05/23/16 ) Lactic Acid Sepsis Protocol (05/24/16 00:06) Levofloxacin 750 Mg Premix Inj (Levaquin (05/24/16 00:30) Sodium Chlor 0.9% 1000 Ml Inj (Ns 1000 M (05/24/16 00:45) Labs Laboratory Tests Test 05/23/16 05/24/16 23:33 00:15 White Blood Count 20.6 TH/MM3 Red Blood Count 5.30 MIL/MM3 Hemoglobin 14.9 GM/DL Hematocrit 45.8 % Mean Corpuscular Volume 86.5 FL Mean Corpuscular Hemoglobin 28.1 PG Mean Corpuscular Hemoglobin 32.4 % Concent Red Cell Distribution Width 14.8 % Platelet Count 246 TH/MM3 Mean Platelet Volume 9.1 FL Neutrophils (%) (Auto) 86.0 % Lymphocytes (%) (Auto) 7.0 % Monocytes (%) (Auto) 6.8 % Eosinophils (%) (Auto) 0.0 % Basophils (%) (Auto) 0.2 % Neutrophils # (Auto) 17.7 TH/MM3 Lymphocytes # (Auto) 1.4 TH/MM3 Monocytes # (Auto) 1.4 TH/MM3 Eosinophils # (Auto) 0.0 TH/MM3 Basophils # (Auto) 0.0 TH/MM3 CBC Comment DIFF FINAL Differential Comment Urine Color LIGHT-YELLOW Urine Turbidity CLEAR Urine pH 5.5 Urine Specific Rowe 1.009 Urine Protein NEG mg/dL Urine Glucose (UA) 70 mg/dL Urine Ketones NEG mg/dL Urine Occult Blood NEG Urine Nitrite NEG Urine Bilirubin NEG Urine Urobilinogen LESS THAN 2.0 MG/DL Urine Leukocyte Esterase NEG Urine RBC LESS THAN 1 /hpf Urine WBC LESS THAN 1 /hpf Microscopic Urinalysis Comment CULT NOT INDICATED Sodium Level 135 MEQ/L Potassium Level 5.1 MEQ/L Chloride Level 105 MEQ/L Carbon Dioxide Level 22.0 MEQ/L Anion Gap 8 MEQ/L Blood Urea Nitrogen 41 MG/DL Creatinine 1.19 MG/DL Estimat Glomerular Filtration 60 ML/MIN Rate Random Glucose 146 MG/DL Calcium Level 8.8 MG/DL B-Hydroxybutyrate 0.22 MMOL/L Lactic Acid Level 1.9 mmol/L MDM Medical Decision Making Medical Screen Exam Complete: Yes Emergency Medical Condition: Yes Interpretation(s) Laboratory Tests Test 1/9/17 1/10/17 23:33 00:15 White Blood Count 20.6 TH/MM3 (4.0-11.0) Red Blood Count 5.30 MIL/MM3 (4.50-5.90) Hemoglobin 14.9 GM/DL (13.0-17.0) Hematocrit 45.8 % (39.0-51.0) Mean Corpuscular Volume 86.5 FL (80.0-100.0) Mean Corpuscular Hemoglobin 28.1 PG (27.0-34.0) Mean Corpuscular Hemoglobin 32.4 % Concent (32.0-36.0) Red Cell Distribution Width 14.8 % (11.6-17.2) Platelet Count 246 TH/MM3 (150-450) Mean Platelet Volume 9.1 FL (7.0-11.0) Neutrophils (%) (Auto) 86.0 % (16.0-70.0) Lymphocytes (%) (Auto) 7.0 % (9.0-44.0) Monocytes (%) (Auto) 6.8 % (0.0-8.0) Eosinophils (%) (Auto) 0.0 % (0.0-4.0) Basophils (%) (Auto) 0.2 % (0.0-2.0) Neutrophils # (Auto) 17.7 TH/MM3 (1.8-7.7) Lymphocytes # (Auto) 1.4 TH/MM3 (1.0-4.8) Monocytes # (Auto) 1.4 TH/MM3 (0-0.9) Eosinophils # (Auto) 0.0 TH/MM3 (0-0.4) Basophils # (Auto) 0.0 TH/MM3 (0-0.2) CBC Comment DIFF FINAL Differential Comment Urine Color LIGHT-YELLOW (YELLW/STRAW) Urine Turbidity CLEAR (CLEAR) Urine pH 5.5 (5.0-8.5) Urine Specific Rowe 1.009 (1.002-1.035) Urine Protein NEG mg/dL (NEG-TRACE) Urine Glucose (UA) 70 mg/dL (NEG) Urine Ketones NEG mg/dL (NEG) Urine Occult Blood NEG (NEG) Urine Nitrite NEG (NEG) Urine Bilirubin NEG (NEG) Urine Urobilinogen LESS THAN 2.0 MG/DL (LESS THAN 2.0) Urine Leukocyte Esterase NEG (NEG) Urine RBC LESS THAN 1 /hpf (0-3) Urine WBC LESS THAN 1 /hpf (0-5) Microscopic Urinalysis Comment CULT NOT INDICATED Sodium Level 135 MEQ/L (136-145) Potassium Level 5.1 MEQ/L (3.5-5.1) Chloride Level 105 MEQ/L (98-107) Carbon Dioxide Level 22.0 MEQ/L (21.0-32.0) Anion Gap 8 MEQ/L (5-15) Blood Urea Nitrogen 41 MG/DL (7-18) Creatinine 1.19 MG/DL (0.60-1.30) Estimat Glomerular Filtration 60 ML/MIN (>89) Rate Random Glucose 146 MG/DL (74-106) Calcium Level 8.8 MG/DL (8.5-10.1) B-Hydroxybutyrate 0.22 MMOL/L (0.00-0.39) Lactic Acid Level 1.9 mmol/L (0.4-2.0) Last Impressions Chest X-Ray 05/23/16 0000 Signed Impressions: Service Date/Time: Monday, May 23, 2016 23:35 - CONCLUSION: Minimal patchy infiltrates left lower lobe. Arnaldo Anaya MD Differential Diagnosis Uncontrolled DM vs. DKA vs. infection Narrative Course 76yo M with c/o elevated blood glucose. Labs reviewed, leukocytosis at 20.6 but pt was on steroids. Lactic acid 1.9. K 5.1, slightly hemolyzed. Glucose is 146. UA negative. CXR showed minimal patchy infiltrate left lower lobe. Pt is well appearing and not in distress. Since he is coughing, given dose of levaquin in the ED. Discussed with hospitalist Dr. Stokes who states pt does not meet criteria to be admitted and can follow up as outpatient. Discussed with pt and he will return to the ED if symptoms worsen. He will follow up with his PMD. Diagnosis Primary Impression: Pneumonia Qualified Code: J18.1 - Pneumonia of left lower lobe due to infectious organism Patient Instructions: General Instructions Departure Forms: Tests/Procedures Additional Instructions: Please follow up with your PMD in 1-2 days. Return to the ED if symptoms worsen. Med/Other Pt SpecificInfo: Prescription(s) given Scripts Azithromycin (Zithromax Z-Nithin)250 Mg [id number] Mg PO DIRECTED #1 DSPK Ref 0 500 MG (2 tabs) day 1, then 1 tab days 2-5. Prov:Zakiya Trujillo DO 05/24/16 Disposition: 01 DISCHARGE HOME Condition: Stable Zakiya Trujillo DO May 23, 2016 23:27
[2016-05-23 23:42] LABS: AUTOMATED NEUTROPHIL # 17.7 TH/MM3 (1.8-7.7); BASOPHIL % 0.2 % (0.0-2.0); HEMATOCRIT 45.8 % (39.0-51.0); HEMO FLAGS DIFF FINAL; LYMPHOCYTE # 1.4 TH/MM3 (1.0-4.8); MEAN CELL VOLUME 86.5 FL (80.0-100.0); MEAN CORPUSCULAR HEMOGLOBIN 28.1 PG (27.0-34.0); MEAN CORPUSCULAR HGB CONC 32.4 % (32.0-36.0); MONO % 6.8 % (0.0-8.0); PLATELET COUNT 246 TH/MM3 (150-450); RED CELL DISTRIBUTION WIDTH 14.8 % (11.6-17.2); WHITE BLOOD COUNT 20.6 TH/MM3 (4.0-11.0)
[2016-05-23 23:43] LABS: BLOOD, URINE NEG (NEG); GLUCOSE,URINE 70 mg/dL (NEG); KETONE, URINE NEG (NEG); NITRITE,URINE NEG (NEG); PH, URINE 5.5 (5.0-8.5); URINE COLOR LIGHT-YELLOW (YELLW/STRAW)
[2016-05-23 23:51] LABS: COMMENT (UR) CULT NOT INDICATED; CULTURE IF INDICATED CULT NOT INDICATED
--- NOTE | 2016-05-24 00:15 | RADRPT ---
EXAM DATE/TIME: 05/23/2016 23:35 [facility] COMPARISON: CHEST SINGLE AP, May 20, 2016, 18:24. INDICATIONS : Cough. MEDICAL HISTORY : Arthritis. Diabetes mellitus type 2. Hypertension. High cholesterol. ME x3. SURGICAL HISTORY : Appendectomy. ENCOUNTER: Initial ACUITY: 1 day PAIN SCORE: 0/10 LOCATION: Bilateral chest FINDINGS: A single view of the chest demonstrates minimal left basilar patchy densities. Right lung clear. Hear t normal in size. The cardiomediastinal contours are unremarkable. Osseous structures are intact.CO NCLUSION: Minimal patchy infiltrates left lower lobe. Arnaldo Anaya MD on May 24, 2016 at 0:13 Board Certified Radiologist. This report was verified electronically.
[2016-05-24 00:26] LABS: BETA-HYDROXYBUTYRATE 0.22 MMOL/L (0.00-0.39)
[2016-05-24 00:27] LABS: POTASSIUM 5.1 MEQ/L (3.5-5.1)
[2016-05-24] MEDS ORDERED: LEVOFLOXACIN 750 MG PREMIX INJ 150 ML IV ONE (00:30)
[2016-05-24] MEDS ORDERED: SODIUM CHLOR 0.9% 1000 ML INJ 1,000 ML IV ONE (00:45)
[2016-05-24] MEDS ORDERED: ZITHTAB PO (01:41)
== END 2016-05-24 02:17 | disposition home or self-care (01) ==
LOC: NEPE 21:12
DX: J18.9 Pneumonia, unspecified organism (principal); E78.00 Pure hypercholesterolemia, unspecified; E11.65 Type 2 diabetes mellitus with hyperglycemia; I10 Essential (primary) hypertension; F17.210 Nicotine dependence, cigarettes, uncomplicated; Z79.84 Long term (current) use of oral hypoglycemic drugs; I25.2 Old myocardial infarction
CPT/HCPCS: 71010; 80048; 81001; 82010; 83605; 85025; 96365; 99285; J1956; J7030

== ENCOUNTER 2016-07-30 20:46 | Observation (INO) | payer OTHER, MEDICARE ==
[~2016-07-30] VITALS: Ht 165.1 cm; Wt 80.0 kg
[~2016-07-30 20:46] MED LIST changes: +ZITHTAB PO
[2016-07-30 20:58] VITALS: BP 138/63; PULSE 96; RESP 18; TEMP 97.7; O2SAT 99
[2016-07-30] MEDS ORDERED: SODIUM CHLORIDE 0.9% FLUSH 5 ML FLUSH IVF PRN ×2 (21:00→23:15)
--- NOTE | 2016-07-30 21:33 | PD ---
HPI Chief Complaint: Chest Pain Time Seen by Provider: 21:00 Travel History International Travel<30 days: No Contact w/Intl Traveler<30days: No Traveled to known affect area: No History of Present Illness HPI Patient is a 76-year-old male with history of SD comes in complaining of chest pain. He says it started about 7:00 tonight and has been on and off since then. He says the sharp pain in the left side of his chest. He says the pain does not radiate anywhere. He says it makes him nervous when the pain comes on. He denies any shortness of breath or nausea with this. PFSH Past Medical History Arthritis: Yes Asthma: No Anxiety: Yes Depression: No Heart Rhythm Problems: No Cancer: No Cardiac Catheterization: Yes Cardiovascular Problems: Yes High Cholesterol: Yes Chemotherapy: No Chest Pain: Yes Congestive Heart Failure: No COPD: No Cerebrovascular Accident: Yes Diabetes: Yes Patient Takes Glucophage: Yes Diminished Hearing: No Endocrine: Yes Gastrointestinal Disorders: Yes GERD: No Genitourinary: Yes Headaches: No Hiatal Hernia: No Heparin Induced Thrombocytopen: No Hypertension: Yes Implanted Vascular Access Dvce: No Kidney Stones: No Medical other: Yes (3 SD's) Musculoskeletal: No Neurologic: Yes Psychiatric: Yes Reproductive: No Respiratory: Yes 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) Migraines: No Myocardial Infarction: Yes (X3) Radiation Therapy: No Renal Failure: No Seizures: No Sickle Cell Disease: No Sleep Apnea: No Thyroid Disease: No Ulcer: No Past Surgical History Abdominal Surgery: No AICD: No Appendectomy: Yes Arteriovenous Shunt: No Cardiac Surgery: Yes Coronary Stent: Yes (about 5 years ago) Ear Surgery: No Endocrine Surgery: No Eye Surgery: No Genitourinary Surgery: Yes (LEFT TESTICLE) Gynecologic Surgery: No Insulin Pump: No Joint Replacement: No Neurologic Surgery: No Oral Surgery: No Pacemaker: No Thoracic Surgery: No Other Surgery: Yes Social History Alcohol Use: No Tobacco Use: Yes Substance Use: No Allergies-Medications (Allergen,Severity, Reaction): Coded Allergies: Quinine (Verified Allergy, Severe, UPPER EXTREMITIES BLEED, 05/23/16) Penicillin (Verified Allergy, Mild, UNK, 05/23/16) Sulfa (Verified Allergy, Mild, UNK, 05/23/16) Reported Meds & Prescriptions Reported Meds & Active Scripts Active Zithromax Z-Nithin (Azithromycin) 250 Mg Dspk 250 Mg PO DIRECTED 500 MG (2 tabs) day 1, then 1 tab days 2-5. Ventolin Hfa 18 GM Inh (Albuterol Sulfate) 90 Mcg/Act Aer 2 Puff INH Q4-6H PRN Prednisone 20 Mg Tab 20 Mg PO BID Take 20mg twice a day for 3 days, Then take 20mg once daily for 3 days. Zithromax (Azithromycin) 250 Mg Tab 250 Mg PO DAILY Reported Ibuprofen 600 Mg Tab 600 Mg PO BID Ranitidine (Ranitidine HCl) 150 Mg Tab 150 Mg PO BID Metformin ER (Metformin HCl) 1,000 Mg Conor 1,000 Mg PO BIDAC With evening meal Lisinopril 10 Mg Tab 10 Mg PO DAILY Glyburide 5 Mg Tab 5 Mg PO BID Take with meals at the same time each day Diazepam 10 Mg Tab 10 Mg PO TID PRN Atorvastatin (Atorvastatin Calcium) 80 Mg Tab 80 Mg PO HS Review of Systems Except as stated in HPI: all other systems reviewed are Neg General / Constitutional: No: Fever, Chills Eyes: No: Blurred Vision HENT: No: Headaches, Lightheadedness Cardiovascular: Positive: Chest Pain or Discomfort Respiratory: No: Cough, Shortness of Breath Gastrointestinal: No: Nausea, Vomiting Genitourinary: No: Dysuria Musculoskeletal: Positive: Edema, No: Pain Neurologic: No: Weakness, Dizziness Physical Exam Narrative GENERAL: Awake and alert, in no acute distress. SKIN: Warm and dry. Erythema of his lower extremities (chronic). HEAD: Atraumatic. Normocephalic. EYES: Pupils equal and round. No scleral icterus. ENT: Mucous membranes pink and moist. NECK: Trachea midline. No JVD. CARDIOVASCULAR: Regular rate and rhythm. No murmur appreciated. RESPIRATORY: No accessory muscle use. Clear to auscultation. Breath sounds equal bilaterally. GASTROINTESTINAL: Abdomen soft, non-tender, nondistended. MUSCULOSKELETAL: No obvious deformities. No clubbing. No cyanosis. No edema. NEUROLOGICAL: Awake and alert. No obvious cranial nerve deficits. Motor grossly within normal limits. Normal speech. PSYCHIATRIC: Appropriate mood and affect; insight and judgment normal. Data Data Last Documented VS Vital Signs Date Time Temp Pulse Resp B/P Pulse Ox O2 Delivery O2 Flow Rate FiO2 07/30/16 21:47 91 18 138/63 96 Room Air 07/30/16 20:58 97.7 Orders Electrocardiogram (07/30/16 21:00) B-Type Natriuretic Peptide (07/30/16 21:00) Ckmb (Isoenzyme) Profile (07/30/16 21:00) Complete Blood Count With Diff (07/30/16:00) Comprehensive Metabolic Panel (07/30/16:00) Magnesium (Mg) (07/30/16:00) Prothrombin Time / Inr (Pt) (07/30/16:00) Act Partial Throm Time (Ptt) (07/30/16:00) Troponin I (07/30/16:00) Ecg Monitoring (07/30/16:00) Bilateral Bp Monitoring (07/30/16:00) Iv Access Insert/Monitor (07/30/16:00) Oximetry (07/30/16:00) Oxygen Administration (07/30/16:00) Sodium Chloride 0.9% Flush (Ns Flush) (07/30/16:00) Chest, Pa & Lat (07/30/16 21:00) CKMB (07/30/16 21:39) CKMB% (07/30/16 21:39) Activity Bed Rest With Brp (07/30/16 23:09) Vital Signs (Adult) Q4H (07/30/16 23:09) Cardiac Rhythm .As Directed (07/30/16 23:09) ^ Notify Dr: Other .PRN (07/30/16 23:09) ^ Notify Dr. Parameters (07/30/16 23:09) Resp Oxygen Nasal Cannula (07/30/16 ) Diet Heart Healthy (07/31/16 Breakfast) Ckmb (Isoenzyme) Profile (07/31/16 00:39) Ckmb (Isoenzyme) Profile (07/31/16 03:39) Troponin I (07/31/16 00:39) Troponin I (07/31/16 03:39) Electrocardiogram (07/31/16 00:39) Electrocardiogram (07/31/16 03:39) ^ Obtain (07/30/16 23:09) Sodium Chloride 0.9% Flush (Ns Flush) (07/30/16 23:15) Sodium Chloride 0.9% Flush (Ns Flush) (07/31/16 09:00) Cloth Checker / Telemetry JUSTINA.Q8H (07/30/16 23:09) Admit Order (Ed Use Only) (07/30/16 ) Labs Laboratory Tests Test 07/30/16 21:39 White Blood Count 9.5 TH/MM3 Red Blood Count 4.79 MIL/MM3 Hemoglobin 14.3 GM/DL Hematocrit 42.0 % Mean Corpuscular Volume 87.8 FL Mean Corpuscular Hemoglobin 29.8 PG Mean Corpuscular Hemoglobin 34.0 % Concent Red Cell Distribution Width 14.5 % Platelet Count 222 TH/MM3 Mean Platelet Volume 9.1 FL Neutrophils (%) (Auto) 63.1 % Lymphocytes (%) (Auto) 22.9 % Monocytes (%) (Auto) 8.1 % Eosinophils (%) (Auto) 5.1 % Basophils (%) (Auto) 0.8 % Neutrophils # (Auto) 6.0 TH/MM3 Lymphocytes # (Auto) 2.2 TH/MM3 Monocytes # (Auto) 0.8 TH/MM3 Eosinophils # (Auto) 0.5 TH/MM3 Basophils # (Auto) 0.1 TH/MM3 CBC Comment DIFF FINAL Differential Comment Prothrombin Time 10.7 SEC Prothromb Time International 1.0 RATIO Ratio Activated Partial 27.9 SEC Thromboplast Time Sodium Level 139 MEQ/L Potassium Level 4.2 MEQ/L Chloride Level 103 MEQ/L Carbon Dioxide Level 25.0 MEQ/L Anion Gap 11 MEQ/L Blood Urea Nitrogen 25 MG/DL Creatinine 1.59 MG/DL Estimat Glomerular Filtration 43 ML/MIN Rate Random Glucose 137 MG/DL Calcium Level 8.8 MG/DL Magnesium Level 2.0 MG/DL Total Bilirubin 0.2 MG/DL Aspartate Amino Transf 18 U/L (AST/SGOT) Alanine Aminotransferase 29 U/L (ALT/SGPT) Alkaline Phosphatase 662 U/L Total Creatine Kinase 110 U/L Creatine Kinase MB 2.5 NG/ML Troponin I LESS THAN 0.02 NG/ML B-Type Natriuretic Peptide 16 PG/ML Total Protein 7.1 GM/DL Albumin 3.4 GM/DL MDM Medical Decision Making Medical Screen Exam Complete: Yes Emergency Medical Condition: Yes Medical Record Reviewed: Yes Interpretation(s) ECG shows normal sinus rhythm at 92, no ST elevation or depression Differential Diagnosis ACS versus NSTEMI versus STEMI Narrative Course Patient is a 76-year-old male comes in complaining of chest pain. Exam shows no acute abnormalities. IV established, labs sent. Patient connected to the groundwater monitoring technician. Labs show no acute abnormalities. Chest x-ray performed shows no acute abnormalities. Patient received aspirin by EMS. Patient placed in chest pain center for further management. Diagnosis Primary Impression: Chest pain Qualified Code: R07.9 - Chest pain, unspecified type Admitting Information Admitting Physician Requests: Observation Condition: Stable Bethanie Regan MD Jul 30, 2016 21:33
--- NOTE | 2016-07-30 21:43 | RADRPT ---
EXAM DATE/TIME: 07/30/2016 21:34 [facility] COMPARISON: CHEST PA & LAT, June 28, 2012, 8:45. INDICATIONS : Chest pain. MEDICAL HISTORY : Arthritis. Diabetes mellitus type 2. Hypertension. High cholesterol. PR x3 SURGICAL HISTORY : Appendectomy. ENCOUNTER: Initial ACUITY: 1 day PAIN SCORE: 0/10 LOCATION: Bilateral chest FINDINGS: PA and lateral views of the chest demonstrate the lungs to be symmetrically aerated without evidence of mass, infiltrate or effusion. Atherosclerotic calcifications are present in the aorta. The cardiom ediastinal contours are unremarkable. Osseous structures are intact. CONCLUSION: No acute disease. Andre Cedeno MD on July 30, 2016 at 21:40 Board Certified Radiologist. This report was verified electronically.
[2016-07-30 21:47] VITALS: BP 138/63; PULSE 91; RESP 18; O2SAT 96
[2016-07-30 22:02] LABS: BASOPHIL # 0.1 TH/MM3 (0-0.2); BASOPHIL % 0.8 % (0.0-2.0); EOSINOPHIL # 0.5 TH/MM3 (0-0.4); EOSINOPHIL % 5.1 % (0.0-4.0); HEMO FLAGS DIFF FINAL; LYMPH % 22.9 % (9.0-44.0); LYMPHOCYTE # 2.2 TH/MM3 (1.0-4.8); MEAN CELL VOLUME 87.8 FL (80.0-100.0); MEAN CORPUSCULAR HEMOGLOBIN 29.8 PG (27.0-34.0); MONO % 8.1 % (0.0-8.0); NEUT % 63.1 % (16.0-70.0); PLATELET COUNT 222 TH/MM3 (150-450); RED BLOOD COUNT 4.79 MIL/MM3 (4.50-5.90); RED CELL DISTRIBUTION WIDTH 14.5 % (11.6-17.2); WHITE BLOOD COUNT 9.5 TH/MM3 (4.0-11.0)
[2016-07-30 22:13] LABS: APTT (PATIENT) 27.9 SEC (24.3-30.1); PROTHROMBIN TIME - PATIENT 10.7 SEC (9.8-11.6)
[2016-07-30 22:18] LABS: ANION GAP 11 MEQ/L (5-15); AST (GOT) 18 U/L (15-37); BLOOD UREA NITROGEN 25 MG/DL (7-18); CHLORIDE 103 MEQ/L (98-107); GLOMERULAR FILTRATION RATE 43 ML/MIN (>89); POTASSIUM 4.2 MEQ/L (3.5-5.1); SODIUM (NA) 139 MEQ/L (136-145)
[2016-07-30 22:23] LABS: ALKALINE PHOSPHATASE 662 U/L (45-117); ALT (GPT) 29 U/L (12-78); CREATINE KINASE 110 U/L (39-308); TOTAL BILIRUBIN ADULT 0.2 MG/DL (0.2-1.0)
[2016-07-30 22:35] LABS: CKMB 2.5 NG/ML (0.5-3.6)
[2016-07-30 23:48] VITALS: BP 143/78; PULSE 88; RESP 21; O2SAT 94
[2016-07-31] VITALS (8 sets, daily range): BP systolic 127–170; BP diastolic 69–77; PULSE 61–95; RESP 19–22; TEMP 97.5–98.3; O2SAT 92–97
[2016-07-31 02:29] LABS: CREATINE KINASE 142 U/L (39-308)
[2016-07-31 02:41] LABS: CKMB 2.5 NG/ML (0.5-3.6)
[2016-07-31] MEDS ORDERED: DEXTROSE 5% IN WATE 1000ML INJ 1,000 ML IV ONE (04:00)
[2016-07-31] MEDS ORDERED: GLUCAGON 1 MG/ML VIAL IM/SQ PRN (08:45)
[2016-07-31] MEDS ORDERED: DEXTROSE 50% IN WATER 50 ML VIAL(D50) IV PRN (08:45)
[2016-07-31] MEDS ORDERED: SODIUM CHLORIDE 0.9% FLUSH 5 ML FLUSH IVF SCH (09:00)
[2016-07-31] MEDS ORDERED: RESP: ALBUTEROL 2.5 MG/IPRATROPIUM 0.5 MG NEB (PRN) INH (09:00)
[2016-07-31] MEDS ORDERED: LISINOPRIL 10 MG TAB PO SCH (09:15)
[2016-07-31] MEDS ORDERED: RANITIDINE HCL 150 MG TAB PO SCH (09:15)
--- NOTE | 2016-07-31 10:47 | HHI.HP ---
HPI Primary Care Physician Jennifer [facility] Chief Complaint Chest pain History of Present Illness This is a 76-year-old male with stated history of CAD stain and he had an SD with stenting 4-5 years ago. He presents with a complaint of a left-sided sharp discomfort that began while sitting on his porch last evening at 1900. It would last for 2-3 minutes but continue to recur 5 or 6 times prompting him to call 911. He had no shortness red nausea or diaphoresis. The symptoms do not feel similar to when eating stenting for 5 years ago. He states she's had a cardiac evaluation since then. His primary care physician is through the [place]. Denies recent illnesses. Denies fevers or chills. Review of Systems General: Patient denies fevers, chills recent, and recent travel HEENT: Patient denies headache, sore throat, difficulty swallowing. Cardiovascular: Has the chest discomfort as mentioned above. Denies sensation of heart beating rapidly or irregularly. No syncope. Denies diaphoresis. Respiratory: Denies shortness of breath or inspirational chest discomfort. Denies coughing wheezing or hemoptysis. GI: Patient denies nausea, vomiting, diarrhea, abdominal pain, bloody stools. Musculoskeletal: Patient denies joint pain or edema. Denies calf pain or edema. Neurovascular: Patient denies numbness, tingling, weakness in extremities. Denies headache. Endocrine: Denies polyuria and polydipsia. Hematologic: Denies easy bruising. Skin: Denies rash or itching. Past Family Social History Allergies: Coded Allergies: Quinine (Verified Allergy, Severe, UPPER EXTREMITIES BLEED, 05/23/16) Penicillin (Verified Allergy, Mild, UNK, 05/23/16) Sulfa (Verified Allergy, Mild, UNK, 05/23/16) Past Medical History CAD was stated history of a stent for 5 years ago. Hypertension diabetes and hyperlipidemia. Also tobacco abuse. Past Surgical History Stated cardiac catheterization with stenting for 5 years ago. Appendectomy. Left testicle. Reported Medications Reported Meds & Active Scripts Active Reported Ibuprofen 600 Mg Tab 600 Mg PO BID Ranitidine (Ranitidine HCl) 150 Mg Tab 150 Mg PO BID Metformin ER (Metformin HCl) 1,000 Mg Conor 1,000 Mg PO BIDAC With evening meal Lisinopril 10 Mg Tab 10 Mg PO DAILY Glyburide 5 Mg Tab 5 Mg PO BID Take with meals at the same time each day Atorvastatin (Atorvastatin Calcium) 80 Mg Tab 80 Mg PO HS Active Ordered Medications Current Medications Medications (Trade) Dose Ordered Sig/Aly Route Start Time Stop Time Status Last Admin (NS Flush) 2 ml UNSCH PRN IVF 07/30/16 21:00 (NS Flush) 2 ml UNSCH PRN IVF 07/30/16 23:15 IV Flush 2 ml 2 ml BID IVF 07/31/16 09:00 (D5W 1000 ml Inj) 1,000 ml @ 75 mls/hr [id number] ONCE IV 07/31/16 04:00 07/31/16 17:19 07/31/16 04:11 (D50w (Vial) Inj) 25 ml UNSCH PRN IV 07/31/16 08:45 (Glucagon Inj) 1 mg UNSCH PRN IM/SQ 07/31/16 08:45 (Lipitor) 80 mg HS PO 07/31/16 21:00 (Prinivil) 10 mg DAILY PO 07/31/16 09:15 (Pepcid) 20 mg BID PO 07/31/16 21:00 Family History There is family history of CAD. Social History Patient smokes between 2-3 packs cigarettes daily and has done so for more than 50 years. Denies alcohol or illicit drugs. Physical Exam Vital Signs Vital Signs Date Time Temp Pulse Resp B/P Pulse Ox O2 Delivery O2 Flow Rate FiO2 07/31/16 07:36 97.8 88 22 137/77 92 07/31/16 07:20 95 21 07/31/16 02:32 98.3 79 19 129/72 94 07/31/16 02:15 81 07/31/16 00:00 95 07/30/16 23:48 88 21 143/78 94 Room Air 07/30/16 21:47 91 18 138/63 96 Room Air 07/30/16 21:24 96 Room Air 07/30/16 21:24 Room Air 07/30/16 20:58 97.7 96 18 138/63 99 Physical Exam GENERAL: This is a well-nourished, well-developed patient, in no apparent distress. Patient speaks in clear complete sentences. Patient is pleasant. HEENT: Head is atraumatic and normocephalic. Neck is supple without lymphadenopathy and trachea is midline. No JVD or carotid bruits. CARDIOVASCULAR: Regular rate and rhythm without murmurs, gallops, or rubs. RESPIRATORY: The chest wall is tender to palpate. This is the symptoms he has been having. Clear to auscultation. Breath sounds equal bilaterally. No wheezes , rales, or rhonchi. No use of accessory muscles. GASTROINTESTINAL: Abdomen is nontender, nondistended. Abdomen soft. No obvious pulsatile mass or bruit. No CVA tenderness. Strong femoral pulses bilaterally. Normal bowel sounds in all quadrants. MUSCULOSKELETAL: Patient is moving upper and lower extremities freely. No calf tenderness or edema, no Homans sign. Strong pulses in upper and lower extremities. NEUROLOGICAL: Patient is alert and oriented. Cranial nerves 2-12 are grossly intact. No focal deficits and speech is clear. SKIN: No rash and turgor is normal. Laboratory Laboratory Tests Test 07/30/16 07/31/16 07/31/16 21:39 01:16 03:10 White Blood Count 9.5 Red Blood Count 4.79 Hemoglobin 14.3 Hematocrit 42.0 Mean Corpuscular Volume 87.8 Mean Corpuscular Hemoglobin 29.8 Mean Corpuscular Hemoglobin 34.0 Concent Red Cell Distribution Width 14.5 Platelet Count 222 Mean Platelet Volume 9.1 Neutrophils (%) (Auto) 63.1 Lymphocytes (%) (Auto) 22.9 Monocytes (%) (Auto) 8.1 Eosinophils (%) (Auto) 5.1 Basophils (%) (Auto) 0.8 Neutrophils # (Auto) 6.0 Lymphocytes # (Auto) 2.2 Monocytes # (Auto) 0.8 Eosinophils # (Auto) 0.5 Basophils # (Auto) 0.1 CBC Comment DIFF FINAL Differential Comment Prothrombin Time 10.7 Prothromb Time International 1.0 Ratio Activated Partial 27.9 Thromboplast Time Sodium Level 139 Potassium Level 4.2 Chloride Level 103 Carbon Dioxide Level 25.0 Anion Gap 11 Blood Urea Nitrogen 25 Creatinine 1.59 Estimat Glomerular Filtration 43 Rate Random Glucose 137 Calcium Level 8.8 Magnesium Level 2.0 Total Bilirubin 0.2 Aspartate Amino Transf 18 (AST/SGOT) Alanine Aminotransferase 29 (ALT/SGPT) Alkaline Phosphatase 662 Total Creatine Kinase 110 142 65 Creatine Kinase MB 2.5 2.5 Troponin I LESS THAN 0.02 LESS THAN 0.02 0.02 B-Type Natriuretic Peptide 16 Total Protein 7.1 Albumin 3.4 Result Diagram: 07/30/16213807/30/162138 Imaging Last 24 hours Impressions Chest X-Ray 07/30/16 2100 Signed Impressions: Service Date/Time: Saturday, July 30, 2016 21:34 - CONCLUSION: No acute disease. Andre Cedeno MD Course EKG is a sinus rhythm without significant ST segment depressions or elevations. Assessment and Plan Assessment and Plan * Chest pain: Patient had serial cardiac enzymes and EKGs for ruling out purposes. He will be seen by Dr. Lindsey of cardiology in the chest pain center. He will undergo a Lexiscan. He would likely be discharged home with instructions to follow-up with his primary care physician and rubber insulator if his stress test were to be nonischemic. * CAD: Patient states he has history of a stent. This will be reassessed with stress testing. He should follow-up with his rubber insulator. * Hypertension: Continue current medication. * Hyperlipidemia: Continue current medication. * Diabetes: He'll be covered with sliding scale insulin coverage but should resume his medicine at discharge. He should follow diabetic diet. * Tobacco abuse: Patient has been counseled on importance of smoking cessation Patient is stable at this time. He is agreeable to this plan. Jorge Andino Jul 31, 2016 10:47
[2016-07-31] MEDS ORDERED: INSULIN ASPART SUPPLEMENTAL SCALE SQ SCH (11:00)
[2016-07-31] MEDS ORDERED: REGADENOSON INJ 0.4 MG/5 ML SYR ONE (11:28)
--- NOTE | 2016-07-31 12:29 | EKG ---
Date Performed: 07/31/2016 Time Performed: 03:15:13 PTAGE: 76 years EKG: Sinus rhythm LOW QRS VOLTAGE IN PRECORDIAL LEADS POSSIBLE RIGHT VENTRICULAR CONDUCTION DELAY POSSIBLE ANTERIOR MY OCARDIAL INFARCTION INFERIOR MYOCARDIAL INFARCTION ABNORMAL ECG No significant change from prior elec trocardiogram. PREVIOUS TRACING : 07/31/2016 01.22 DOCTOR: Remi Sands Interpretating Date/Time 07/31/2016 12:28:33
--- NOTE | 2016-07-31 12:31 | EKG ---
Date Performed: 07/31/2016 Time Performed: 01:22:22 PTAGE: 76 years EKG: Baseline artifact is present. ECTOPIC ATRIAL RHYTHM Versus Sinus rhythm LOW QRS VOLTAGE IN PRECORDIAL LEADS INCOMPLETE RIGHT BUNDLE BRANCH BLOCK ANTEROLATERAL MYOCARDIAL IN FARCTION ABNORMAL ECG Compared to prior electrocardiogram,Lead 1 and aVL have changed. This could be due to abnormal changes in limb lead positioning. Clinical correlation suggested. PREVIOUS TRACING : 07/30/2016 21.11 DOCTOR: Remi Sands Interpretating Date/Time 07/31/2016 12:29:48
--- NOTE | 2016-07-31 12:37 | EKG ---
Date Performed: 07/30/2016 Time Performed: 21:11:52 PTAGE: 76 years EKG: Sinus rhythm LOW QRS VOLTAGE IN PRECORDIAL LEADS INCOMPLETE RIGHT BUNDLE BRANCH BLOCK INFERIOR MYOCARDIAL INFARCT ION PROBABLE ANTEROLATERAL MYOCARDIAL INFARCTION ABNORMAL ECG No significant change from prior electr ocardiogram. PREVIOUS TRACING : 05/20/2016 18.30 DOCTOR: Remi Sands Interpretating Date/Time 07/31/2016 12:35:07
--- NOTE | 2016-07-31 12:45 | RADRPT ---
EXAM DATE/TIME: 07/31/2016 11:08 [facility] COMPARISON: No previous studies available for comparison. INDICATIONS : Left sided chest pain. Angina. Coronary artery disease. DOSE: 25.4 mCi Tc99m Myoview at stress. 8.5 mCi Tc99m Myoview at rest. 0.4 mg Lexiscan STRESS SYMPTOMS: Shortness of breath. EJECTION FRACTION: 57% MEDICAL HISTORY : Myocardial infarction. Hypertension. Diabetes mellitus type 2. SURGICAL HISTORY : Appendectomy. Coronary artery stent. ENCOUNTER: Initial ACUITY: 1 day PAIN SCALE: 7/10 LOCATION: Substernal chest TECHNIQUE: The patient underwent pharmacologic stress with infusion of prescribed dose. Continuous ECG tracing was monitored during stress. Gated SPECT imaging was performed after stress and conventional SPECT i maging was performed at rest. The examination was performed on a SPECT/CT scanner, both attenuation and non-corrected datasets were reviewed. FINDINGS: DISTRIBUTION: The maximum perfused segment at stress is in the anterolateral wall. PERFUSION STUDY: There is small area of mild reversibility along the septum towards the base. Matched defect along the inferolateral wall. GATED STUDY: There is intact wall motion and thickening without hypokinetic or dyskinetic segments. CONCLUSION: Small area of mild reversibility along the septum towards the base suggesting ischemia. Normal ejecti on fraction. RISK CATEGORY: Low (<1% Annual Mortality Rate) Arnaldo Anaya MD on July 31, 2016 at 12:40 Board Certified Radiologist. This report was verified electronically.
--- NOTE | 2016-07-31 13:05 | HHI.DCPOC ---
Discharge Care Plan Diagnosis: (1) Chest pain (2) CAD (coronary artery disease) (3) H/O heart artery stent (4) HTN (hypertension) (5) DM (diabetes mellitus) (6) Hyperlipidemia (7) Tobacco abuse (8) Renal insufficiency (9) Alkaline phosphatase elevation Goals to Promote Your Health DISCUSS ELEVATED ALKALINE PHOSPHATASE WITH YOUR DOCTOR AT [facility]. * To prevent worsening of your condition and complications * To maintain your health at the optimal level Directions to Meet Your Goals Take your medications as prescribed Follow your dietary instruction Follow activity as directed Keep your appointments as scheduled Take your immunizations and boosters as scheduled If your symptoms worsen call your PCP, if no PCP go to Urgent Care Center or Emergency Room Smoking is Dangerous to Your Health. Avoid second hand smoke Call the 24-hour hour crisis hotline for domestic abuse at Jorge Andino Jul 31, 2016 13:05
--- NOTE | 2016-07-31 14:16 | TR ---
Date Performed: 07/31/2016 Time Performed: 11:36:07 DOCTOR: Matthew Lindsey DRUG LIST: CLINICAL HISTORY: CHEST PAIN REASON FOR TEST: CHEST PAIN REASON FOR ENDING: OBSERVATION: CONCLUSION: Lexiscan stress test was performed under standard four minute protocol. Radionucl[place] e was injected one minute prior to ending the test. No electrocardiographic abormalities were present to suggest ischemia. Nuclear imaging and interpretation are pending. COMMENTS:
[2016-07-31] MEDS ORDERED: FAMOTIDINE 20 MG TAB PO SCH (21:00)
[2016-07-31] MEDS ORDERED: ATORVASTATIN 80 MG TAB PO SCH (21:00)
== END 2016-07-31 15:28 | disposition home or self-care (01) ==
LOC: NEPA 20:46 → NEDA 23:12 → NEPHCDU 07-31 02:25
DX: R07.89 Other chest pain (principal); I25.10 Atherosclerotic heart disease of native coronary artery without angina pectoris; I10 Essential (primary) hypertension; E11.9 Type 2 diabetes mellitus without complications; E78.5 Hyperlipidemia, unspecified; E78.00 Pure hypercholesterolemia, unspecified; I25.2 Old myocardial infarction; R94.31 Abnormal electrocardiogram [ECG] [EKG]; F17.200 Nicotine dependence, unspecified, uncomplicated; Z95.5 Presence of coronary angioplasty implant and graft; Z86.73 Personal history of transient ischemic attack (TIA), and cerebral infarction without residual deficits; Z79.84 Long term (current) use of oral hypoglycemic drugs
CPT/HCPCS: 71020; 78452; 80053; 82550; 82552; 82948; 83735; 83880; 84484; 85025; 85610; 85730; 93005; 93017; 99285; A9502; G0378; J1815; J2785; J7070

== ENCOUNTER 2016-08-16 19:10 | Inpatient (IN) | payer OTHER, MEDICARE ==
[~2016-08-16] VITALS: Ht 165.1 cm; Wt 80.0 kg
[~2016-08-16 19:10] MED LIST changes: -DIAZ10TA PO; -PRED20 PO; -VENTAER INH; -ZITH250T PO; -ZITHTAB PO
[2016-08-16 19:18] VITALS: BP 155/72; PULSE 91; RESP 16; TEMP 98.3; O2SAT 98
[2016-08-16 19:36] VITALS: RESP 16; O2SAT 98
--- NOTE | 2016-08-16 19:47 | PD ---
HPI Chief Complaint: Skin Problem Time Seen by Provider: 19:31 Travel History International Travel<30 days: No Contact w/Intl Traveler<30days: No Traveled to known affect area: No History of Present Illness HPI The patient is a 76 year old male who presents to the [facility] emergency department with a history of tremulousness that first began in his legs at 2 PM and then began to spread all throughout his body since then. He reports that he feels lightheaded and has generalized weakness due to the tremulousness. The patient was brought in by ambulance services. The patient's blood sugar prior to arrival was 130. The patient does have a history of diabetes mellitus. The patient reports that his recent history is, located by having a rash on his feet and legs. He reports that a few weeks ago he did have the area scraped as there was a significant amount of dry skin. He reports that he' s been placed on a lotion to try to slough the skin off. He reports that the symptoms in his legs have worsened and he is also developed a similar rash on his hands. He reports that his feet are painful and red. He denies having any known fevers. The patient reports that he has been referred to a radiology director on September 08. The patient denies working with any chemicals. He denies having any changes in his medication regimen. He denies having any open wounds or sores in his mouth. The patient reports that today with the tremulousness he has felt slightly more short of breath than usual. He reports that he smokes 2 packs of cigarettes per day. He denies having any increased cough or productivity to his usual smoker's cough. The patient denies any neck pain, chest pain, abdominal pain, vomiting, diarrhea, urinary symptoms, or focal neurologic symptoms. [facility] Past Medical History Narrative Medical The patient's past medical history is significant for diabetes mellitus, 3 prior myocardial infarctions, one cardiac catheterization with stent placement, hypertension, hyperlipidemia, cataracts on his eyes, heavy tobacco use on a daily basis, posttraumatic stress disorder, anxiety disorder, osteoarthritis, degenerative disc disease of his back. Arthritis: Yes Asthma: No Anxiety: Yes Depression: No Heart Rhythm Problems: No Cancer: No Cardiac Catheterization: Yes Cardiovascular Problems: Yes High Cholesterol: Yes Chemotherapy: No Chest Pain: Yes Congestive Heart Failure: No COPD: No Cerebrovascular Accident: Yes Diabetes: Yes Patient Takes Glucophage: Yes Diminished Hearing: No Endocrine: Yes Gastrointestinal Disorders: Yes GERD: No Genitourinary: Yes Headaches: No Hiatal Hernia: No Heparin Induced Thrombocytopen: No Hypertension: Yes Implanted Vascular Access Dvce: No Kidney Stones: No Musculoskeletal: No Neurologic: Yes Psychiatric: Yes Reproductive: No Respiratory: Yes 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 Abdominal Surgery: No AICD: No Appendectomy: Yes Arteriovenous Shunt: No Cardiac Surgery: Yes Coronary Stent: Yes (about 5 years ago) Ear Surgery: No Endocrine Surgery: No Eye Surgery: No Genitourinary Surgery: Yes (LEFT TESTICLE) Gynecologic Surgery: No Insulin Pump: No Joint Replacement: No Neurologic Surgery: No Oral Surgery: No Pacemaker: No Thoracic Surgery: No Other Surgery: Yes Social History Alcohol Use: No Tobacco Use: Yes (2PPD) Substance Use: No Allergies-Medications (Allergen,Severity, Reaction): Coded Allergies: Quinine (Verified Allergy, Severe, UPPER EXTREMITIES BLEED, 08/16/16) Penicillin (Verified Allergy, Mild, UNK, 08/16/16) Sulfa (Verified Allergy, Mild, UNK, 08/16/16) Reported Meds & Prescriptions Reported Meds & Active Scripts Active Reported Ibuprofen 600 Mg Tab 600 Mg PO BID Ranitidine (Ranitidine HCl) 150 Mg Tab 150 Mg PO BID Metformin ER (Metformin HCl) 1,000 Mg Conor 1,000 Mg PO BIDAC With evening meal Lisinopril 10 Mg Tab 10 Mg PO DAILY Glyburide 5 Mg Tab 5 Mg PO BID Take with meals at the same time each day Atorvastatin (Atorvastatin Calcium) 80 Mg Tab 80 Mg PO HS Review of Systems Except as stated in HPI: all other systems reviewed are Neg General / Constitutional: Positive: Chills, No: Fever Eyes: No: Visual changes HENT: No: Headaches, Congestion Cardiovascular: No: Chest Pain or Discomfort, Dyspnea on exertion Respiratory: Positive: Cough (chronic cough related to smoking), Shortness of Breath Gastrointestinal: No: Nausea, Vomiting, Diarrhea, Abdominal Pain, Changes in Bowel Habits, Indigestion, Loss of Appetite Genitourinary: No: Dysuria Musculoskeletal: No: Pain Skin: Positive Rash Neurologic: Positive: Weakness (generalized weakness), Tremor, No: Focal Abnormalities, Change in Mentation, Slurred Speech, Sensory Disturbance Psychiatric: No: Depression Endocrine: No: Polydipsia Hematologic/Lymphatic: No: Easy Bruising Physical Exam Narrative General: The patient is a well-developed well-nourished male, tremulous appearing on examination, the tremor waxes and wanes in severity, sometimes resolving with him resting in the bed. Head and Neck exam: Head is normocephalic atraumatic. Eyes: EOMI, pupils are equal round and reactive to light. Nose: Midline septum with pink mucous membranes Mouth: Dentition unremarkable. Moist mucus membranes. Posterior oropharynx is not erythematous. No tonsillar hypertrophy. Uvula midline. Airway patent. Neck: No palpable lymphadenopathy. No nuchal rigidity. Cardiovascular: Regular rate and rhythm without murmurs, gallops, or rubs. Lungs: Clear to auscultation bilaterally. No wheezes, rhonchi, or rales. Abdomen: Soft, without tenderness to palpation in all 4 quadrants of the abdomen. No guarding, rebound, or rigidity. Normal bowel sounds are audible. No tenderness on palpation of McBurney's point. Extremities: No clubbing or cyanosis. The patient has edema to his hands and feet, legs below the knees. 2+ pulses in all 4 extremities. The patient is noted to have dry, crusted and peeling skin on his hands and his feet. His left hand is slightly worse than the right hand. There are areas of cracking with some bleeding noted. The crusting is honey colored. The patient is noted to have crusted and cracking to bilateral lower extremities from the knees down to the feet. There is some bleeding noted. There is tenderness on palpation to bilateral feet. Back: No spinous process tenderness to palpation. No costovertebral angle tenderness to palpation. Neurologic Exam: Cranial nerves 2-12 were intact on exam. Strength is 5/5 in all 4 extremities. No sensory deficits noted. The patient is tremulous on examination. Data Data Last Documented VS Vital Signs Date Time Temp Pulse Resp B/P Pulse Ox O2 Delivery O2 Flow Rate FiO2 08/16/16 19:36 16 98 Room Air 4/4/17 19:18 98.3 91 155/72 Orders Electrocardiogram (08/16/16 19:31) Complete Blood Count With Diff (08/16/16 19:31) Comprehensive Metabolic Panel (08/16/16 19:31) B-Type Natriuretic Peptide (08/16/16 19:31) Prothrombin Time / Inr (Pt) (08/16/16 19:31) Act Partial Throm Time (Ptt) (08/16/16 19:31) Blood Culture (08/16/16:31) C-Reactive Protein (Crp) (08/16/16 19:31) Urinalysis - C+S If Indicated (08/16/16:31) Westergren Sedimentation Rate (08/16/16:31) Magnesium (Mg) (08/16/16 19:31) Wound Culture And Gram Stain (08/16/16 19:31) Chest, Single Ap (08/16/16:31) Iv Access Insert/Monitor (08/16/16:31) Ecg Monitoring (08/16/16:31) Oximetry (08/16/16:31) Drug Screen, Random Urine (08/16/16:31) Lactic Acid Sepsis Protocol (08/16/16 19:31) Aztreonam Inj (Azactam Inj) (08/16/16 20:00) Metronidazole 500 Mg Inj (Flagyl 500 Mg (08/16/16 20:00) Vancomycin Inj (Vancomycin Inj) (08/16/16 20:00) Sodium Chlor 0.9% 1000 Ml Inj (Ns 1000 M (08/16/16 20:00) Labs Laboratory Tests Test 08/16/16 08/16/16 19:30 19:40 Lactic Acid Level 2.0 mmol/L White Blood Count 10.0 TH/MM3 Red Blood Count 4.42 MIL/MM3 Hemoglobin 13.2 GM/DL Hematocrit 39.0 % Mean Corpuscular Volume 88.2 FL Mean Corpuscular Hemoglobin 29.8 PG Mean Corpuscular Hemoglobin 33.8 % Concent Red Cell Distribution Width 14.6 % Platelet Count 299 TH/MM3 Mean Platelet Volume 8.8 FL Neutrophils (%) (Auto) 67.8 % Lymphocytes (%) (Auto) 18.2 % Monocytes (%) (Auto) 8.9 % Eosinophils (%) (Auto) 4.1 % Basophils (%) (Auto) 1.0 % Neutrophils # (Auto) 6.8 TH/MM3 Lymphocytes # (Auto) 1.8 TH/MM3 Monocytes # (Auto) 0.9 TH/MM3 Eosinophils # (Auto) 0.4 TH/MM3 Basophils # (Auto) 0.1 TH/MM3 CBC Comment DIFF FINAL Differential Comment Erythrocyte Sedimentation Rate 27 mm/hr Prothrombin Time 11.2 SEC Prothromb Time International 1.0 RATIO Ratio Activated Partial 29.3 SEC Thromboplast Time Urine Color YELLOW Urine Turbidity CLEAR Urine pH 7.0 Urine Specific [place] 1.014 Urine Protein TRACE mg/dL Urine Glucose (UA) NEG mg/dL Urine Ketones NEG mg/dL Urine Occult Blood NEG Urine Nitrite NEG Urine Bilirubin NEG Urine Urobilinogen LESS THAN 2.0 MG/DL Urine Leukocyte Esterase NEG Urine RBC 1 /hpf Urine WBC LESS THAN 1 /hpf Urine Squamous Epithelial <1 /hpf Cells Microscopic Urinalysis Comment CULT NOT INDICATED Sodium Level 142 MEQ/L Potassium Level 4.1 MEQ/L Chloride Level 108 MEQ/L Carbon Dioxide Level 27.1 MEQ/L Anion Gap 7 MEQ/L Blood Urea Nitrogen 21 MG/DL Creatinine 1.17 MG/DL Estimat Glomerular Filtration 61 ML/MIN Rate Random Glucose 133 MG/DL Calcium Level 8.9 MG/DL Magnesium Level 2.0 MG/DL Total Bilirubin 0.2 MG/DL Aspartate Amino Transf 13 U/L (AST/SGOT) Alanine Aminotransferase 19 U/L (ALT/SGPT) Alkaline Phosphatase 534 U/L C-Reactive Protein 1.80 MG/DL B-Type Natriuretic Peptide 24 PG/ML Total Protein 7.2 GM/DL Albumin 3.1 GM/DL Urine Opiates Screen NEG Urine Barbiturates Screen NEG Urine Amphetamines Screen NEG Urine Benzodiazepines Screen NEG Urine Cocaine Screen NEG Urine Cannabinoids Screen NEG MDM Medical Decision Making Medical Screen Exam Complete: Yes Emergency Medical Condition: Yes Medical Record Reviewed: Yes Interpretation(s) Last Impressions Chest X-Ray 08/16/161930 Signed Impressions: Service Date/Time: Tuesday, August 16, 2016 19:44 - CONCLUSION: The lungs are clear. Baljit Rod MD Differential Diagnosis Cellulitis, versus impetigo, versus dyshidrotic eczema, versus staph scalded skin syndrome, versus sepsis Narrative Course During the course of the patients emergency department visit, the patients history, examination, and differential diagnosis were reviewed with the patient. The patient had IV access obtained and blood work sent for analysis. The patient was placed on a ekg monitor with oximetry and blood pressure monitoring. An EKG was done on arrival. The patient's EKG shows a sinus rhythm of 90, no acute ST segment elevation or depression, T waves are inverted in V1. The patient was provided Azactam, Flagyl, and vancomycin due to his penicillin allergy. The patient was given a normal saline 1 L IV fluid bolus. The patients laboratory studies were reviewed and remarkable for a white count of 10, hemoglobin 13.2, platelets 299 with 8.9 monocytes, sedimentation rate is 27, CMP is remarkable for chloride of 108, BUN 21, glucose 133, AST 13, alkaline phosphatase 534, C-reactive protein 1.8, BNP 24, lactic acid 2.0, PT PTT unremarkable. Urinalysis is unremarkable. Urine drug screen is negative for Radiology studies were reviewed and remarkable for a chest x-ray that showed no acute abnormality. The patient will be admitted to the hospital for extensive cellulitis related to a superimposed bacterial infection from open wounds from dyshidrotic eczema. The patients results were discussed with the patient, including the plan of care. I explained that further testing and/ or monitoring is indicated based on the patients history, examination, and/ or laboratory findings. Therefore, I recommended admission for additional evaluation. The patient expressed understanding and was agreeable with this plan. The patient was admitted to the hospital in stable condition and [facility]. Sepsis Criteria SIRS Criteria (2 or more): Heart rate over 90 Sepsis Criteria (SIRS+source): Infect source susp/known Physician Communication Physician Communication The [facility] Diagnosis Primary Impression: Cellulitis Qualified Code: L03.119 - Cellulitis of lower extremity, unspecified laterality Admitting Information Admitting Physician Requests: Admit Swetha Barnett MD Aug 16, 2016 19:47
[2016-08-16] MEDS ORDERED: AZTREONAM INJ 2,000 MG in SODIUM CHLORIDE 0.9% INJ 100 ML IV STA (20:00)
[2016-08-16] MEDS ORDERED: metroNIDAZOLE 500 MG INJ 100 ML IV STA (20:00)
[2016-08-16] MEDS ORDERED: SODIUM CHLOR 0.9% 1000 ML INJ 1,000 ML IV ONE (20:00)
[2016-08-16] MEDS ORDERED: VANCOMYCIN INJ 1,000 MG in SODIUM CHLOR 0.9% 250 ML INJ 250 ML IV STA (20:00)
[2016-08-16 20:11] LABS: BLOOD, URINE NEG (NEG); GLUCOSE,URINE NEG (NEG); KETONE, URINE NEG (NEG); NITRITE,URINE NEG (NEG); SQUAMOUS EPITHELIAL CELL URINE <1 /hpf (0-5); URINE COLOR YELLOW (YELLW/STRAW)
[2016-08-16 20:13] LABS: AUTOMATED NEUTROPHIL # 6.8 TH/MM3 (1.8-7.7); BASOPHIL # 0.1 TH/MM3 (0-0.2); EOSINOPHIL # 0.4 TH/MM3 (0-0.4); EOSINOPHIL % 4.1 % (0.0-4.0); HEMO FLAGS DIFF FINAL; LYMPH % 18.2 % (9.0-44.0); LYMPHOCYTE # 1.8 TH/MM3 (1.0-4.8); MEAN CELL VOLUME 88.2 FL (80.0-100.0); MEAN CORPUSCULAR HEMOGLOBIN 29.8 PG (27.0-34.0); MEAN CORPUSCULAR HGB CONC 33.8 % (32.0-36.0); MONO % 8.9 % (0.0-8.0); NEUT % 67.8 % (16.0-70.0); PLATELET COUNT 299 TH/MM3 (150-450); RED BLOOD COUNT 4.42 MIL/MM3 (4.50-5.90); RED CELL DISTRIBUTION WIDTH 14.6 % (11.6-17.2)
[2016-08-16 20:18] LABS: AMPHETAMINE, URINE NEG (NEG); BARBITURATES, URINE NEG (NEG); COCAINE, URINE NEG (NEG); COMMENT (UR) CULT NOT INDICATED; CULTURE IF INDICATED CULT NOT INDICATED
[2016-08-16 20:20] LABS: APTT (PATIENT) 29.3 SEC (24.3-30.1); PROTHROMBIN TIME - PATIENT 11.2 SEC (9.8-11.6)
--- NOTE | 2016-08-16 20:24 | RADRPT ---
EXAM DATE/TIME: 08/16/2016 19:44 [facility] COMPARISON: CHEST SINGLE AP, May 23, 2016, 23:35. INDICATIONS : Cough, body tremors. MEDICAL HISTORY : Arthritis. Diabetes mellitus type 2. Hypertension. High cholesterol. [place] x3 SURGICAL HISTORY : Appendectomy. ENCOUNTER: Initial ACUITY: 1 day PAIN SCORE: 5/10 LOCATION: Bilateral chest FINDINGS: A single view of the chest demonstrates the lungs to be symmetrically aerated without evidence of mas s, infiltrate or effusion. The cardiomediastinal contours are unremarkable. Osseous structures are intact. CONCLUSION: The lungs are clear. Baljit Rod MD on August 16, 2016 at 20:23 Board Certified Radiologist. This report was verified electronically.
[2016-08-16 20:29] LABS: ALKALINE PHOSPHATASE 534 U/L (45-117); ALT (GPT) 19 U/L (12-78); ANION GAP 7 MEQ/L (5-15); AST (GOT) 13 U/L (15-37); BICARBONATE 27.1 MEQ/L (21.0-32.0); BLOOD UREA NITROGEN 21 MG/DL (7-18); CHLORIDE 108 MEQ/L (98-107); GLOMERULAR FILTRATION RATE 61 ML/MIN (>89); POTASSIUM 4.1 MEQ/L (3.5-5.1); SODIUM (NA) 142 MEQ/L (136-145); TOTAL BILIRUBIN ADULT 0.2 MG/DL (0.2-1.0)
[2016-08-16] MEDS ORDERED: GLUCAGON 1 MG/ML VIAL OTHER PRN (22:00)
[2016-08-16] MEDS ORDERED: ACETAMINOPHEN 325 MG TAB PO PRN (22:00)
[2016-08-16] MEDS ORDERED: Vancomycin Consult Pharmacy 1 EA OTHER SCH (22:00)
[2016-08-16] MEDS ORDERED: DEXTROSE 50% IN WATER 50 ML VIAL(D50) IV PUSH PRN (22:00)
[2016-08-16] MEDS ORDERED: ONDANSETRON HCL 4 MG/2 ML VIAL IV PUSH PRN (22:00)
[2016-08-16 23:25] VITALS: BP 134/61; TEMP 98.3
[2016-08-17] VITALS (7 sets, daily range): BP systolic 122–142; BP diastolic 60–76; PULSE 84–93; RESP 16–20; TEMP 96.8–98.4; O2SAT 95–99
[2016-08-17] MEDS: INSULIN ASPART SUPPLEMENTAL SCALE SQ SCH ×4 (06:41→21:12)
--- NOTE | 2016-08-17 08:54 | HHI.HP ---
[facility] Admission Diagnosis Cellulitis Diagnoses: Chief Complaint: Severe skin dryness, tremulous Travel History International Travel<30 Days: No Contact w/Intl Traveler <30 Da: No Traveled to Known Affected Are: No Sepsis Criteria SIRS Criteria (2 or more): Heart rate over 90 Sepsis Criteria (SIRS+source): Infect source susp/known History of Present Illness Patient is a very pleasant 76-year-old male with history of CAD, diabetes type 2 , hyperlipidemia who presented to the ER complaining of feelings of tremulousness both arms "trembling" patient denies any fever or chills. In addition to these patient states that for the past 6 months now has had lower extremity rashes that are nonpleuritic. 6 weeks ago now involves the palms started out as blisters and later on became generalized rashes involving both arms soles. Patient is sedated denies any fever or chills. With increasing dryness of both upper and lower extremity skin. She was tried on several lotions by her by [facility] sounds like Eucerin cream 2 weeks ago with no improvement. He was set up to be seen by a photographic restorer on September 08 however patient complains of severe dryness and due to dryness has been having pain. Came to the ER because of this feeling of tremulousness less and on. At the ER blood sugars were good. On the on questioning about his blood sugars patient states that they have been reading low. And his metformin was recently discontinued. On evaluation here noted extreme dryness and generalized erythema of both upper and lower extremity and was admitted for further evaluation. Patient states that the skin lesions will be so dry that sometimes will cause pain. Patient denies any arthralgias. Review of Systems Constitutional: COMPLAINS OF: Weight loss (states objective positive weight loss), DENIES: Diaphoretic episodes, Fatigue, Fever, Weight gain, Chills, Dizziness, Change in appetite, Night Sweats Endocrine: DENIES: Heat/cold intolerance, Polydipsia, Polyuria, Polyphagia Eyes: DENIES: Blurred vision, Diplopia, Eye inflammation, Eye pain, Vision loss , Photosensitivity, Double Vision Ears, nose, mouth, throat: DENIES: Tinnitus, Hearing loss, Vertigo, Nasal discharge, Oral lesions, Throat pain, Hoarseness, Ear Pain, Running Nose, Epistaxis, Sinus Pain, Toothache, Odynophagia Respiratory: DENIES: Apneas, Cough, Snoring, Wheezing, Hemoptysis, Sputum production, Shortness of breath Cardiovascular: DENIES: Chest pain, Palpitations, Syncope, Dyspnea on Exertion , PND, Lower Extremity Edema, Orthopnea, Claudication Gastrointestinal: DENIES: Abdominal pain, Black stools, Bloody stools, Constipation, Diarrhea, Nausea, Vomiting, Difficulty Swallowing, Anorexia Genitourinary: DENIES: Sexual dysfunction, Urinary frequency, Urinary incontinence, Urgency, Hematuria, Dysuria, Nocturia, Penile Discharge, Testicular Pain, Testicular Swelling Musculoskeletal: DENIES: Joint pain, Muscle aches, Stiffness, Joint Swelling, Back pain, Neck pain Integumentary: DENIES: Abnormal pigmentation, Nail changes, Pruritus, Rash Hematologic/lymphatic: DENIES: Bruising, Lymphadenopathy Neurologic: DENIES: Abnormal gait, Headache, Localized weakness, Paresthesias, Seizures, Speech Problems, Tremor, Poor Balance Psychiatric: DENIES: Anxiety, Confusion, Mood changes, Depression, Hallucinations, Agitation, Suicidal Ideation, Homicidal Ideation, Delusions Past Family Social History Past Medical History Coronary artery disease status post LA 3 Diabetes type 2 Denies any history of CVA Occasional arthralgias Past Surgical History Appendectomy Left wrist ganglion cyst removal Reported Medications Lisinopril 10 mg daily Metformin 1 g twice a day Ranitidine 150 mg daily 8 atorvastatin 80 mg at bedtime Ibuprofen 600 mg twice a day Glyburide 5 mg twice a Allergies: Coded Allergies: Quinine (Verified Allergy, Severe, UPPER EXTREMITIES BLEED, 08/16/16) Penicillin (Verified Allergy, Mild, UNK, 08/16/16) Sulfa (Verified Allergy, Mild, UNK, 08/16/16) Family History Noncontributory Social History Still smokes 5-6 cigars a day Denies any substance abuse alcohol use Physical Exam Vital Signs Vital Signs Date Time Temp Pulse Resp B/P Pulse Ox O2 Delivery O2 Flow Rate FiO2 08/17/16 07:43 97.6 87 16 130/61 95 08/17/16 03:00 97.7 90 20 140/69 97 08/16/16 23:25 98.3 60 18 134/61 96 08/16/16 19:36 16 98 Room Air 08/16/16 19:21 16 08/16/16 19:18 98.3 91 16 155/72 98 Physical Exam GENERAL: No acute distress SKIN: Generalized skin maculopapular rashes on both upper and lower extremities. [place] soles extreme dryness with breaking, peeling of the skin , some skin falling off, some linear skin breakdown on the bilateral groin with inguinal lymphadenopathy, no axillary adenopathy HEAD: Atraumatic. Normocephalic. No temporal or scalp tenderness. EYES: Pupils equal round and reactive. Extraocular motions intact. No scleral icterus. No injection or drainage. ENT: Nose without bleeding, purulent drainage or septal hematoma. Throat without erythema, tonsillar hypertrophy or exudate. Uvula midline. Airway patent. No mucosal lesions NECK: Trachea midline. No JVD or lymphadenopathy. Supple, nontender, no meningeal signs. CARDIOVASCULAR: Regular rate and rhythm without murmurs, gallops, or rubs. RESPIRATORY: Clear to auscultation. Breath sounds equal bilaterally. No wheezes , rales, or rhonchi. GASTROINTESTINAL: Abdomen soft, non-tender, nondistended. . No guarding. MUSCULOSKELETAL: Extremities without clubbing, cyanosis, or edema. No joint tenderness, effusion, or edema noted. No calf tenderness. Negative Homans sign bilaterally. Her feet and toes with severe dryness and scaling between toes and on the feet with skin peeling and some of them falling off from that toes and the soles NEUROLOGICAL: Awake and alert. Cranial nerves II through XII intact. Motor and sensory grossly within normal limits. Five out of 5 muscle strength in all muscle groups. Normal speech. Laboratory Laboratory Tests Test 08/16/16 08/16/16 19:30 19:40 Lactic Acid Level 2.0 White Blood Count 10.0 Red Blood Count 4.42 Hemoglobin 13.2 Hematocrit 39.0 Mean Corpuscular Volume 88.2 Mean Corpuscular Hemoglobin 29.8 Mean Corpuscular Hemoglobin 33.8 Concent Red Cell Distribution Width 14.6 Platelet Count 299 Mean Platelet Volume 8.8 Neutrophils (%) (Auto) 67.8 Lymphocytes (%) (Auto) 18.2 Monocytes (%) (Auto) 8.9 Eosinophils (%) (Auto) 4.1 Basophils (%) (Auto) 1.0 Neutrophils # (Auto) 6.8 Lymphocytes # (Auto) 1.8 Monocytes # (Auto) 0.9 Eosinophils # (Auto) 0.4 Basophils # (Auto) 0.1 CBC Comment DIFF FINAL Differential Comment Erythrocyte Sedimentation Rate 27 Prothrombin Time 11.2 Prothromb Time International 1.0 Ratio Activated Partial 29.3 Thromboplast Time Urine Color YELLOW Urine Turbidity CLEAR Urine pH 7.0 Urine Specific [place] 1.014 Urine Protein TRACE Urine Glucose (UA) NEG Urine Ketones NEG Urine Occult Blood NEG Urine Nitrite NEG Urine Bilirubin NEG Urine Urobilinogen LESS THAN 2.0 Urine Leukocyte Esterase NEG Urine RBC 1 Urine WBC LESS THAN 1 Urine Squamous Epithelial <1 Cells Microscopic Urinalysis Comment CULT NOT INDICATED Sodium Level 142 Potassium Level 4.1 Chloride Level 108 Carbon Dioxide Level 27.1 Anion Gap 7 Blood Urea Nitrogen 21 Creatinine 1.17 Estimat Glomerular Filtration 61 Rate Random Glucose 133 Calcium Level 8.9 Magnesium Level 2.0 Total Bilirubin 0.2 Aspartate Amino Transf 13 (AST/SGOT) Alanine Aminotransferase 19 (ALT/SGPT) Alkaline Phosphatase 534 C-Reactive Protein 1.80 B-Type Natriuretic Peptide 24 Total Protein 7.2 Albumin 3.1 Urine Opiates Screen NEG Urine Barbiturates Screen NEG Urine Amphetamines Screen NEG Urine Benzodiazepines Screen NEG Urine Cocaine Screen NEG Urine Cannabinoids Screen NEG Date/Time Procedure Status Source Growth 08/16/16 19:40 Gram Stain Received Wound Foot Pending 08/16/16 19:40 Wound Culture Received Wound Foot Pending 08/16/16 19:35 Aerobic Blood Culture Received Blood Peripheral Pending 08/16/16 19:35 Anaerobic Blood Culture Received Blood Peripheral Pending Result Diagram: 08/16/16193908/16/161939 Imaging Last Impressions Chest X-Ray 08/16/161930 Signed Impressions: Service Date/Time: Tuesday, August 16, 2016 19:44 - CONCLUSION: The lungs are clear. Baljit Rod MD Assessment and Plan Assessment and Plan 76-year-old male with chronic severe dryness Xerosis of the skin with areas of mild cellulitis. Blood cultures have been obtained No WBC elevation, No mucosal involvement that would suggest erythema multiform A. No recent new medications started Patient was empirically started with vancomycin- We'll consult infectious disease specialist for recommendation. Unfortunately we don't have a photographic restorer that comes to the hospital We'll start patient on skin hydrants that is available in our pharmacy and apply liberallly to skin specially hands and feet We'll consult our wound care team too for recommendation Tremulousness -this could be from relative hypoglycemia. Patient states that he has been having low blood sugar readings and Metformin recently discontinued but was continued on Glyburide Will check blood sugars 3 times a day and at bedtime. we'll check a hemoglobin a1c. discontinue glyburide and metformin. start an ada diet history of coronary artery disease status post mi 3 12-lead ekg reviewed no acute st-t wave changes. chest x-ray reviewed with no infiltrates or effusion no signs of heart failure without congestion. will continue on lisinopril 10 mg daily. Atorvastatin 80 mg at bedtime. Baby aspirin daily. Continue on his Zantac 150 milligrams twice a day Lovenox SQ for DVT prophylaxis Encourage ambulation around the room. Discussed Condition With Patient Physician Certification 2 Midnight Certification Type: Admission for Inpatient Services Order for Inpatient Services The services are ordered in accordance with Medicare regulations or non- Medicare payer requirements, as applicable. In the case of services not specified as inpatient-only, they are appropriately provided as inpatient services in accordance with the 2-midnight benchmark. Estimated LOS (days): 3 days is the estimated time the patient will need to remain in the hospital, assuming treatment plan goals are met and no additional complications. Post-Hospital Plan: Not yet determined Omar Leon MD Aug 17, 2016 08:54
[2016-08-17] MEDS: LISINOPRIL 10 MG TAB PO SCH (09:00)
[2016-08-17] MEDS ORDERED: ASPIRIN 81 MG CHEW TAB CHEW SCH (09:15)
--- NOTE | 2016-08-17 09:27 | EKG ---
Date Performed: 08/16/2016 Time Performed: 19:43:42 PTAGE: 76 years EKG: Sinus rhythm LOW QRS VOLTAGE IN PRECORDIAL LEADS POSSIBLE RIGHT VENTRICULAR CONDUCTION DELAY INFERIOR MYOCARDIAL INFARCTION ABNORMAL ECG PREVIOUS TRACING : 07/31/2016 03.15 DOCTOR: Anirudh Le Interpretating Date/Time 08/17/2016 09:25:24
[2016-08-17] MEDS: ASPIRIN 81 MG CHEW TAB PO SCH (11:20)
[2016-08-17] MEDS: LACTIC ACID (AMMONIUM LACTATE) 12% LOTION 225 GM BTL TOPICAL SCH ×2 (11:20→21:00)
[2016-08-17 11:30] LABS: ANION GAP 7 MEQ/L (5-15); BICARBONATE 25.7 MEQ/L (21.0-32.0); BLOOD UREA NITROGEN 13 MG/DL (7-18); CHLORIDE 108 MEQ/L (98-107); GLOMERULAR FILTRATION RATE 71 ML/MIN (>89); POTASSIUM 4.4 MEQ/L (3.5-5.1); SODIUM (NA) 141 MEQ/L (136-145)
[2016-08-17] MEDS ORDERED: NICOTINE 7 MG/24 HR PATCH T-DERMAL SCH (13:45)
[2016-08-17] MEDS ORDERED: traMADol/ACETAMINOPHEN 37.5/325 1 TAB PO PRN (14:00)
[2016-08-17] MEDS: NICOTINE 7 MG/24 HR PATCH T-DERMAL SCH (14:51)
--- NOTE | 2016-08-17 15:59 | PD.CONS ---
History of Present Illness Service Infectious Disease Consult Requested By Dr Corey Leon Reason for Consult Evaluate patient with severe xerosis, possible cellulitis Primary Care Physician [facility] Diagnoses: History of Present Illness Incision seen and examined. Records reviewed. Patient is a 76-year-old male presented to the hospital complaining of tremulousness of both arms. Patient had some workup and no clear etiology was found, but the patient has not had any recurrent episodes. He was found to have skin rash in both lower and upper extremities. The problem started about 6 months ago when he developed a pruritic red rash in his feet and then it involved his whole lower extremity. About a month and a half ago he started having the same rash in his hands and upper extremities. Patient has been seen by his primary care physician in the [place] clinic and has prescribed some Eucerin cream. He eventually has now been referred to a solar process engineer and has an appointment September 08. Occasionally the rash would be painful when they get dry and they crack, but most of the time it's very itchy. There's been no fever or chills. The rash on the feet and in the hands are all peeling. Since admission he has not had any fever. His WBC has been normal. He denies any oral lesions. Denies any genital lesions or any discharge. Infectious disease consultations be requested to evaluate the patient. Review of Systems Constitutional: DENIES: Fever, Chills, Night Sweats Eyes: DENIES: Eye pain Ears, nose, mouth, throat: DENIES: Oral lesions, Sinus Pain, Toothache Respiratory: DENIES: Cough, Shortness of breath Cardiovascular: DENIES: Chest pain Gastrointestinal: DENIES: Abdominal pain, Diarrhea, Nausea, Vomiting Genitourinary: DENIES: Dysuria Integumentary: COMPLAINS OF: Pruritus, Rash Neurologic: DENIES: Headache Psychiatric: DENIES: Hallucinations Past Family Social History Allergies: Coded Allergies: Quinine (Verified Allergy, Severe, UPPER EXTREMITIES BLEED, 08/16/16) Penicillin (Verified Allergy, Mild, UNK, 08/16/16) Sulfa (Verified Allergy, Mild, UNK, 08/16/16) Past Medical History Coronary artery disease status post IA 3 Diabetes type 2 Denies any history of CVA Occasional arthralgias Past Surgical History Appendectomy Left wrist ganglion cyst removal Active Ordered Medications Tylenol Aspirin Lipitor Lovenox Insulin Prinivil Nicotine patch Zofran Ultracet Vancomycin Social History Still smokes 5-6 cigars a day Denies any substance abuse alcohol use Physical Exam Vital Signs Vital Signs Date Time Temp Pulse Resp B/P Pulse Ox O2 Delivery O2 Flow Rate FiO2 08/17/16 12:10 96.8 93 19 128/76 97 08/17/16 08:35 97.4 90 18 122/62 96 08/17/16 07:43 97.6 87 16 130/61 95 08/17/16 03:00 97.7 90 20 140/69 97 08/16/16 23:25 98.3 60 18 134/61 96 08/16/16 19:36 16 98 Room Air 08/16/16 19:21 16 08/16/16 19:18 98.3 91 16 155/72 98 Physical Exam GENERAL: This is a well-nourished, well-developed male, awake and alert, in no apparent distress. SKIN: Warm and dry. he had rash in both UE and LE including soles of feet and palms. There are several types of rash - one is a large erythematous raised macules that varies in size, and some of the rash have dryness/xerosis, and some rah has papular clusters in them. he has desquamation of the skin on palms and soles of the feet, and skin is very dry with some cracking of skin. HEAD: Atraumatic. Normocephalic. No temporal or scalp tenderness. EYES: Conjunctivae. Pupils equal round and reactive. Extraocular motions intact. No scleral icterus. No injection or drainage. ENT: Nose without bleeding, or purulent drainage. Moist oral mucosa. Throat without erythema, or exudate. Uvula midline. Airway patent. NECK: Trachea midline. No JVD or lymphadenopathy. Supple, nontender, no meningeal signs. CARDIOVASCULAR: Regular rate and rhythm without murmurs, gallops, or rubs. RESPIRATORY: Clear to auscultation. Breath sounds equal bilaterally. No wheezes , rales, or rhonchi. GASTROINTESTINAL: Abdomen soft, obese, non-tender, nondistended. No hepato- splenomegaly, or palpable masses. No guarding. Bowel sounds are present and normoactive.. He has some candidal rash in both groin : NO genital lesions or discharge MUSCULOSKELETAL: Extremities without clubbing, cyanosis. Notable for the skin rash as described previously. Has sharon pedal edema. No joint tenderness, effusion, or edema noted. No calf tenderness. NEUROLOGICAL: Awake and alert. Cranial nerves II through XII intact. Motor and sensory grossly within normal limits. Five out of 5 muscle strength in all muscle groups. Normal speech. PSYCH: Calm and cooperative LINE: PIV with no evidence of infection Laboratory Laboratory Tests Test 08/16/16 08/16/16 08/17/16 19:30 19:40 10:29 Lactic Acid Level 2.0 White Blood Count 10.0 Red Blood Count 4.42 Hemoglobin 13.2 Hematocrit 39.0 Mean Corpuscular Volume 88.2 Mean Corpuscular Hemoglobin 29.8 Mean Corpuscular Hemoglobin 33.8 Concent Red Cell Distribution Width 14.6 Platelet Count 299 Mean Platelet Volume 8.8 Neutrophils (%) (Auto) 67.8 Lymphocytes (%) (Auto) 18.2 Monocytes (%) (Auto) 8.9 Eosinophils (%) (Auto) 4.1 Basophils (%) (Auto) 1.0 Neutrophils # (Auto) 6.8 Lymphocytes # (Auto) 1.8 Monocytes # (Auto) 0.9 Eosinophils # (Auto) 0.4 Basophils # (Auto) 0.1 CBC Comment DIFF FINAL Differential Comment Erythrocyte Sedimentation Rate 27 Prothrombin Time 11.2 Prothromb Time International 1.0 Ratio Activated Partial 29.3 Thromboplast Time Urine Color YELLOW Urine Turbidity CLEAR Urine pH 7.0 Urine Specific [place] 1.014 Urine Protein TRACE Urine Glucose (UA) NEG Urine Ketones NEG Urine Occult Blood NEG Urine Nitrite NEG Urine Bilirubin NEG Urine Urobilinogen LESS THAN 2.0 Urine Leukocyte Esterase NEG Urine RBC 1 Urine WBC LESS THAN 1 Urine Squamous Epithelial <1 Cells Microscopic Urinalysis Comment CULT NOT INDICATED Sodium Level 142 141 Potassium Level 4.1 4.4 Chloride Level 108 108 Carbon Dioxide Level 27.1 25.7 Anion Gap 7 7 Blood Urea Nitrogen 21 13 Creatinine 1.17 1.02 Estimat Glomerular Filtration 61 71 Rate Random Glucose 133 117 Calcium Level 8.9 8.9 Magnesium Level 2.0 Total Bilirubin 0.2 Aspartate Amino Transf 13 (AST/SGOT) Alanine Aminotransferase 19 (ALT/SGPT) Alkaline Phosphatase 534 C-Reactive Protein 1.80 B-Type Natriuretic Peptide 24 Total Protein 7.2 Albumin 3.1 Urine Opiates Screen NEG Urine Barbiturates Screen NEG Urine Amphetamines Screen NEG Urine Benzodiazepines Screen NEG Urine Cocaine Screen NEG Urine Cannabinoids Screen NEG Date/Time Procedure Status Source Growth 08/16/16 19:40 Gram Stain - Final Resulted Wound Foot 08/16/16 19:40 Wound Culture - Preliminary Resulted Staphylococcus Aureus 08/16/16 19:35 Aerobic Blood Culture - Preliminary Resulted Blood Peripheral NO GROWTH IN 1 DAY 08/16/16 19:35 Anaerobic Blood Culture - Preliminary Resulted Blood Peripheral NO GROWTH IN 1 DAY Result Diagram: 08/16/16 1940 08/17/16 1029 Imaging Chest X-Ray 08/16/16 193 Signed Impressions: Service Date/Time: Tuesday, August 16, 2016 19:44 - CONCLUSION: The lungs are clear. Baljit Rod MD Assessment and Plan Assessment and Plan IMPRESSION Skin rash etiology? Mild cellulitis in leg more on R than L Episode of tremulousness, etiology? RECOMMENDATION Needs dermatological evaluation, patient already has an appointment as an outpatient D/.C IV antibiotics Give 7 days of Clinda 300 3 times a day Patient is stable for D/C from ID standpoint Thank you for this consultation Discussed Condition With Discussed the case with Gladys Torres MD Aug 17, 2016 15:59
[2016-08-17] MEDS ORDERED: VANCOMYCIN 1,000 MG/NS 250 ML IV SCH ×2 (16:00)
[2016-08-17] MEDS ORDERED: VANCOMYCIN INJ 1,500 MG in SODIUM CHLORID 0.9% 500 ML INJ 500 ML IV SCH (16:00)
[2016-08-17 16:06] LABS: HEMOGLOBIN A1a 0.9 %; HEMOGLOBIN A1b 2.4 %; HEMOGLOBIN Ao 82.1 %; HEMOGLOBIN LA1C 2.5 %; HEMOGLOBIN P3 6.2 %
[2016-08-17] MEDS ORDERED: ATORVASTATIN 80 MG TAB PO SCH (21:00)
[2016-08-17] MEDS ORDERED: REMOVE OLD NICODERM (NICOTINE) PATCH T-DERMAL SCH (21:00)
[2016-08-17] MEDS: CLINDAMYCIN 150 MG CAP PO SCH (21:12)
[2016-08-18 04:54] VITALS: BP 123/63; PULSE 90; RESP 18; TEMP 97.8; O2SAT 94
[2016-08-18] MEDS: INSULIN ASPART SUPPLEMENTAL SCALE SQ SCH (06:05)
[2016-08-18] MEDS: CLINDAMYCIN 150 MG CAP PO SCH (06:15)
--- NOTE | 2016-08-18 08:07 | HHI.PR ---
Subjective Remarks awake and alert complains of itching some areas d/w him regarding hydrants, Objective Vitals Vital Signs Date Time Temp Pulse Resp B/P Pulse Ox O2 Delivery O2 Flow Rate FiO2 08/18/16 04:54 97.8 90 18 123/63 94 08/17/16 23:41 97.8 84 20 122/60 99 08/17/16 19:51 97.6 92 20 134/70 96 08/17/16 17:10 98.4 90 16 142/74 95 08/17/16 12:10 96.8 93 19 128/76 97 08/17/16 08:35 97.4 90 18 122/62 96 Result Diagram: 08/16/16193908/17/16 1029 Imaging Last Impressions Chest X-Ray 08/16/161930 Signed Impressions: Service Date/Time: Tuesday, August 16, 2016 19:44 - CONCLUSION: The lungs are clear. Baljit Rod MD Objective Remarks awake and alert, oriented x 3 anicteric lungs clear regular rhythm abdomen soft, nontender skin- severe dryness specially of the hands/fingers, legs, feet and toes skin peeling good peripheral pulses gait steady A/P Assessment and Plan 76-year-old male with chronic severe dryness Xerosis of the skin with areas of mild cellulitis. Blood cultures have been obtained- negative wound culture S. aureus No WBC elevation, No mucosal involvement that would suggest erythema multiform A. No recent new medications started d/w ID= can be discharge on clindamycin po skin hydrants liberally Atarax 25 mg po tid prn for pruritus- d/w him that it is from severe dryness Tremulousness -this could be from relative hypoglycemia. no episodes here Patient states that he has been having low blood sugar readings and Metformin recently discontinued but was continued on Glyburide Will check blood sugars 3 times a day and at bedtime. A1C- 6.8 restart on Metformin 1000 mg po bid- continue to monitor bs. Hold Glyburide monitor blood sugars and ff up with PCP with readings for med adjustments history of coronary artery disease status post mi 3 12-lead ekg reviewed no acute st-t wave changes. chest x-ray reviewed with no infiltrates or effusion no signs of heart failure without congestion. will continue on lisinopril 10 mg daily. Atorvastatin 80 mg at bedtime. Baby aspirin daily. Continue on his Zantac 150 milligrams twice a day [place] home [facility] appt set up by [place]- 09/08 Omar Leon MD Aug 18, 2016 08:07
[2016-08-18] MEDS ORDERED: hydrOXYzine HCL 25 MG TAB PO PRN (08:15)
[2016-08-18] MEDS ORDERED: LACT12LO4 TOPICAL (08:17)
[2016-08-18] MEDS ORDERED: HYDR-3133 PO (08:17)
[2016-08-18] MEDS ORDERED: CLIN150 PO (08:17)
[2016-08-18] MEDS ORDERED: TRAM-388 PO (08:17)
[2016-08-18] MEDS: NICOTINE 7 MG/24 HR PATCH T-DERMAL SCH (08:41)
[2016-08-18] MEDS: ASPIRIN 81 MG CHEW TAB PO SCH (08:41)
[2016-08-18] MEDS: LISINOPRIL 10 MG TAB PO SCH (08:41)
[2016-08-18] MEDS: LACTIC ACID (AMMONIUM LACTATE) 12% LOTION 225 GM BTL TOPICAL SCH (08:41)
[2016-08-18] MEDS ORDERED: ENOXAPARIN SODIUM 30 MG/0.3 ML SYRINGE SQ SCH (14:00)
[2016-08-19] MEDS ORDERED: PHARMACY ORDERED LAB ONE (03:45)
== END 2016-08-18 10:15 | disposition home or self-care (01) | DRG 603 ==
LOC: NEPE 19:10 → NEDA 21:56 → NEPFCDU 08-17 00:10
PROVIDERS: ADMIT Internal Medicine; ATTEND Internal Medicine
DX: L03.115 Cellulitis of right lower limb (principal); E11.9 Type 2 diabetes mellitus without complications; J41.0 Simple chronic bronchitis; L85.3 Xerosis cutis; L03.116 Cellulitis of left lower limb; L30.1 Dyshidrosis [pompholyx]; Z88.0 Allergy status to penicillin; R53.1 Weakness; R42 Dizziness and giddiness; Z79.84 Long term (current) use of oral hypoglycemic drugs; Z88.2 Allergy status to sulfonamides; Z88.8 Allergy status to other drugs, medicaments and biological substances; F17.210 Nicotine dependence, cigarettes, uncomplicated; R21 Rash and other nonspecific skin eruption; I25.10 Atherosclerotic heart disease of native coronary artery without angina pectoris; E78.5 Hyperlipidemia, unspecified; I25.2 Old myocardial infarction; M25.50 Pain in unspecified joint
CPT/HCPCS: 71010; 80048; 80053; 80307; 81001; 82948; 83036; 83605; 83735; 83880; 85025; 85610; 85652; 85730; 86140; 86403; 87040; 87070; 87147; 87186; 87205; 93005; 96365; 96367; 96375; J1815; J3370; J7030; J7050

== ENCOUNTER 2017-05-09 17:58 | Observation (INO) | payer MEDICARE ==
[~2017-05-09] VITALS: Ht 165.1 cm; Wt 67.0 kg
[~2017-05-09 17:58] MED LIST changes: -ATOR1TAB18 PO; +ATOR80TA45 PO; +CLIN150 PO; -GLYB5TAB3 PO; +HYDR-3133 PO; -IBUP-232 PO; +LACT12LO4 TOPICAL; +TRAM-388 PO
[2017-05-09 18:01] VITALS: BP 108/69; PULSE 86; RESP 16; TEMP 98.6; O2SAT 98
[2017-05-09] MEDS ORDERED: NITROGLYCERIN 2% OINT 1 GM PACKET TOP ONE (18:15)
[2017-05-09] MEDS ORDERED: ASPIRIN 81 MG CHEW TAB PO ONE (18:15)
[2017-05-09] MEDS ORDERED: SODIUM CHLORIDE 0.9% FLUSH 10 ML FLUSH IVF PRN (18:15)
[2017-05-09 18:22] VITALS: O2SAT 100
[2017-05-09 18:30] LABS: BASOPHIL # 0.1 TH/MM3 (0-0.2); BASOPHIL % 1.1 % (0.0-2.0); EOSINOPHIL # 0.2 TH/MM3 (0-0.4); EOSINOPHIL % 1.7 % (0.0-4.0); HEMATOCRIT 45.9 % (39.0-51.0); LYMPH % 22.2 % (9.0-44.0); MEAN CELL VOLUME 88.9 FL (80.0-100.0); MEAN CORPUSCULAR HGB CONC 34.9 % (32.0-36.0); MEAN PLATELET VOLUME 8.7 FL (7.0-11.0); MONO % 8.7 % (0.0-8.0); MONOCYTE # 0.8 TH/MM3 (0-0.9); NEUT % 66.3 % (16.0-70.0); PLATELET COUNT 218 TH/MM3 (150-450); RED BLOOD COUNT 5.16 MIL/MM3 (4.50-5.90); RED CELL DISTRIBUTION WIDTH 14.3 % (11.6-17.2); WHITE BLOOD COUNT 9.1 TH/MM3 (4.0-11.0)
--- NOTE | 2017-05-09 18:48 | PD ---
HPI Chief Complaint: Chest Pain Time Seen by Provider: 18:11 Travel History International Travel<30 days: No Contact w/Intl Traveler<30days: No Traveled to known affect area: No History of Present Illness HPI This is a 77-year-old male with a history of hypertension, coronary artery disease, hyperlipidemia, diabetes mellitus, tobaccoism, presents today with complaints of intermittent chest pain. Patient brought in by [facility]. He states he has had intermittent chest pain is been relieved with nitroglycerin. He reports it takes the pain away for short period time and then comes back. He denies any acute shortness of breath. There is no nausea or diaphoresis. 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 He had 2 baby aspirins before arrival. He did receive 2 nitroglycerin tablets before arrival. PFSH Past Medical History Arthritis: Yes Asthma: No Anxiety: Yes Depression: No Heart Rhythm Problems: No Cancer: No Cardiac Catheterization: Yes Cardiovascular Problems: Yes High Cholesterol: Yes Chemotherapy: No Chest Pain: Yes Congestive Heart Failure: No COPD: No Cerebrovascular Accident: Yes Diabetes: Yes Patient Takes Glucophage: No Diminished Hearing: No Endocrine: Yes Gastrointestinal Disorders: Yes GERD: No Genitourinary: Yes Headaches: No Hiatal Hernia: No Heparin Induced Thrombocytopen: No Hypertension: Yes Implanted Vascular Access Dvce: No Kidney Stones: No Musculoskeletal: No Neurologic: Yes Psychiatric: Yes Reproductive: No Respiratory: Yes 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) Migraines: No Myocardial Infarction: Yes (X3) Radiation Therapy: No Renal Failure: No Seizures: No Sickle Cell Disease: No Sleep Apnea: No Thyroid Disease: No Ulcer: No Past Surgical History Abdominal Surgery: No AICD: No Appendectomy: Yes Arteriovenous Shunt: No Cardiac Surgery: Yes Coronary Stent: Yes (about 5 years ago) Ear Surgery: No Endocrine Surgery: No Eye Surgery: No Genitourinary Surgery: Yes (LEFT TESTICLE) Gynecologic Surgery: No Insulin Pump: No Joint Replacement: No Neurologic Surgery: No Oral Surgery: No Pacemaker: No Thoracic Surgery: No Other Surgery: Yes Social History Alcohol Use: No Tobacco Use: Yes (2PPD) Substance Use: No Allergies-Medications (Allergen,Severity, Reaction): Coded Allergies: quinine (Unverified Allergy, Severe, UPPER EXTREMITIES BLEED, 12/27/16) Sulfa (Sulfonamide Antibiotics) (Unverified Allergy, Mild, UNK, 12/27/16) penicillin G (Unverified Allergy, Mild, UNK, 12/27/16) Reported Meds & Prescriptions Reported Meds & Active Scripts Active Tramadol-Acetaminophen 37.5-325 mg Tab 1 Tab PO Q8HR PRN Amlactin (Lactic Acid (Ammonium Lactate)) 12 % Lot 1 Applic TOPICAL TID Hydroxyzine HCl 25 Mg Tab 25 Mg PO Q8H PRN 20 Days Cleocin (Clindamycin HCl) 150 Mg Cap 300 Mg PO Q8HR 7 Days Reported Ranitidine (Ranitidine HCl) 150 Mg Tab 150 Mg PO BID Metformin ER (Metformin HCl) 1,000 Mg Conor 1,000 Mg PO BIDAC With evening meal Lisinopril 10 Mg Tab 10 Mg PO DAILY Atorvastatin (Atorvastatin Calcium) 80 Mg Tab 80 Mg PO HS Review of Systems Except as stated in HPI: all other systems reviewed are Neg General / Constitutional: No: Fever HENT: No: Headaches, Lightheadedness, Neck Pain Cardiovascular: Positive: Chest Pain or Discomfort, No: Palpitations, Irregular Rhythm Respiratory: Positive: Shortness of Breath, No: Cough Gastrointestinal: No: Nausea (chronic), Vomiting, Abdominal Pain Musculoskeletal: No: Weakness, Pain Neurologic: No: Weakness, Dizziness, Headache Physical Exam Narrative GENERAL: Well-developed well-nourished male in no acute rest her distress. SKIN: Focused skin assessment warm/dry. HEAD: Atraumatic. Normocephalic. EYES: No scleral icterus. No injection or drainage. ENT: No nasal bleeding or discharge. Mucous membranes pink and moist. NECK: Trachea midline.. CARDIOVASCULAR: Regular rate and rhythm. No murmur appreciated. RESPIRATORY: No accessory muscle use. Clear to auscultation. Breath sounds equal bilaterally. GASTROINTESTINAL: Abdomen soft, non-tender, nondistended. MUSCULOSKELETAL: No obvious deformities. Chronic venous stasis changes to his bilateral lower extremities NEUROLOGICAL: Awake and alert. No obvious cranial nerve deficits. Motor grossly within normal limits. Normal speech. Data Data Last Documented VS Vital Signs Date Time Temp Pulse Resp B/P (MAP) Pulse Ox O2 Delivery O2 Flow Rate FiO2 05/09/17 18:22 100 Nasal Cannula 2.00 05/09/17 18:01 98.6 86 16 108/69 (82) Orders Orders Electrocardiogram (05/09/17 ) Electrocardiogram (05/09/17 18:11) Basic Metabolic Panel (Bmp) (05/09/17 18:11) Ckmb (Isoenzyme) Profile (05/09/17 18:11) Complete Blood Count With Diff (05/09/17 18:11) Magnesium (Mg) (05/09/17 18:11) Prothrombin Time / Inr (Pt) (05/09/17 18:11) Act Partial Throm Time (Ptt) (05/09/17 18:11) Troponin I (05/09/17 18:11) Chest, Single Ap (05/09/17 18:11) Ecg Monitoring (05/09/17 18:11) Bilateral Bp Monitoring (05/09/17 18:11) Iv Access Insert/Monitor (05/09/17 18:11) Oximetry (05/09/17 18:11) Oxygen Administration (05/09/17 18:11) Aspirin Chew (Aspirin Chew) (05/09/17 18:15) Nitroglycerin 2% Oint (Nitroglycerin 2% (05/09/17 18:15) Sodium Chloride 0.9% Flush (Ns Flush) (05/09/17 18:15) Labs Laboratory Tests Test 05/09/17 16:15 White Blood Count 9.1 TH/MM3 Red Blood Count 5.16 MIL/MM3 Hemoglobin 16.0 GM/DL Hematocrit 45.9 % Mean Corpuscular Volume 88.9 FL Mean Corpuscular Hemoglobin 31.0 PG Mean Corpuscular Hemoglobin Concent 34.9 % Red Cell Distribution Width 14.3 % Platelet Count 218 TH/MM3 Mean Platelet Volume 8.7 FL Neutrophils (%) (Auto) 66.3 % Lymphocytes (%) (Auto) 22.2 % Monocytes (%) (Auto) 8.7 % Eosinophils (%) (Auto) 1.7 % Basophils (%) (Auto) 1.1 % Neutrophils # (Auto) 6.0 TH/MM3 Lymphocytes # (Auto) 2.0 TH/MM3 Monocytes # (Auto) 0.8 TH/MM3 Eosinophils # (Auto) 0.2 TH/MM3 Basophils # (Auto) 0.1 TH/MM3 CBC Comment DIFF FINAL Differential Comment Prothrombin Time 10.6 SEC Prothromb Time International Ratio 1.0 RATIO Activated Partial Thromboplast Time 25.0 SEC Blood Urea Nitrogen 14 MG/DL Creatinine 0.87 MG/DL Random Glucose 158 MG/DL Calcium Level 8.7 MG/DL Magnesium Level 1.7 MG/DL Sodium Level 135 MEQ/L Potassium Level 4.0 MEQ/L Chloride Level 104 MEQ/L Carbon Dioxide Level 26.1 MEQ/L Anion Gap 5 MEQ/L Estimat Glomerular Filtration Rate 85 ML/MIN Total Creatine Kinase 54 U/L Troponin I LESS THAN 0.02 NG/ML MDM Medical Decision Making Medical Screen Exam Complete: Yes Emergency Medical Condition: Yes Differential Diagnosis ACS versus GERD versus muscle skeletal pain diagnoses unstable angina Narrative Course 77 year old male history coronary artery disease, hyperlipidemia, hypertension, diabetes mellitus, who presents with intermittent chest pain 2 days. The patient was given 2 baby aspirin and some nitroglycerin. He is pain-free at time my examination. Patient reports it comes and goes and is relieved with nitroglycerin. He's been given 2 further baby aspirin and has had an inch of Nitropaste placed on his anterior chest wall. Patient's EKG and cardiac enzymes show no evidence of acute abnormality. Given the patient's history and story, he'll be admitted to the chest pain center for rule out protocol. I discussed this with the patient and he is amenable. Diagnosis Primary Impression: Chest pain Additional Impressions: Hyperlipidemia HTN (hypertension) DM (diabetes mellitus) Tobacco abuse Admitting Information Admitting Physician Requests: Observation Nile Moser MD May 09, 2017 18:48
[2017-05-09 18:53] LABS: PROTHROMBIN TIME - PATIENT 10.6 SEC (9.8-11.6)
--- NOTE | 2017-05-09 18:53 | RADRPT ---
EXAM DATE/TIME: 05/09/2017 18:33 [facility] COMPARISON: CHEST SINGLE AP, August 16, 2016, 19:44. INDICATIONS : Chest pain. MEDICAL HISTORY : Arthritis. Diabetes mellitus type 2. Hypertension. High cholesterol. NH x3 SURGICAL HISTORY : Appendectomy. ENCOUNTER: Initial ACUITY: 1 day PAIN SCORE: 7/10 LOCATION: Bilateral chest FINDINGS: A single view of the chest demonstrates the lungs to be symmetrically aerated without evidence of mas s, infiltrate or effusion. The cardiomediastinal contours are unremarkable. Osseous structures are intact. CONCLUSION: No evidence of acute cardiopulmonary disease. Stephane Brunner MD on May 09, 2017 at 18:52 Board Certified Radiologist. This report was verified electronically.
[2017-05-09 18:55] LABS: BICARBONATE 26.1 MEQ/L (21.0-32.0); BLOOD UREA NITROGEN 14 MG/DL (7-18); CALCIUM 8.7 MG/DL (8.5-10.1); CHLORIDE 104 MEQ/L (98-107); CREATININE 0.87 MG/DL (0.60-1.30); GLOMERULAR FILTRATION RATE 85 ML/MIN (>89); GLUCOSE,RANDOM 158 MG/DL (74-106); MAGNESIUM 1.7 MG/DL (1.5-2.5); SODIUM (NA) 135 MEQ/L (136-145); TROPONIN I LESS THAN 0.02 NG/ML (0.02-0.05)
[2017-05-09] MEDS: NITROGLYCERIN 2% OINT 1 GM PACKET TOP SCH (19:15)
[2017-05-09] MEDS ORDERED: SODIUM CHLORIDE 0.9% FLUSH 10 ML FLUSH IV FLUSH PRN (19:15)
[2017-05-09 20:31] VITALS: PULSE 75
[2017-05-09 20:47] VITALS: BP 128/70; PULSE 79; RESP 18; TEMP 98.7; O2SAT 97
[2017-05-09 22:16] LABS: TROPONIN I LESS THAN 0.02 NG/ML (0.02-0.05)
[2017-05-09] MEDS: SODIUM CHLORIDE 0.9% FLUSH 10 ML FLUSH IV FLUSH SCH (23:02)
[2017-05-09 23:42] LABS: TROPONIN I LESS THAN 0.02 NG/ML (0.02-0.05)
[2017-05-10] VITALS (7 sets, daily range): BP systolic 107–151; BP diastolic 66–79; PULSE 71–87; RESP 18; TEMP 97–97.7; O2SAT 95–97
[2017-05-10] MEDS: NITROGLYCERIN 2% OINT 1 GM PACKET TOP SCH ×3 (00:14→12:00)
--- NOTE | 2017-05-10 08:27 | HHI.HP ---
HPI Primary Care Physician Unknown Chief Complaint CHEST PAIN History of Present Illness This is a 77-year-old male with history of CAD with stent, hypertension, hyperlipidemia, diabetes, and tobacco abuse that presents to ED via [facility] with a complaint of chest discomfort. This began yesterday. It was intermittent. It was sharp and achy. It lasts several seconds then he would take a sublingual nitroglycerin and it would go away. However continue to recur. Denied shortness of breath, nausea, or diaphoresis. Does not feel similar to when he needed a stent in the past but was still concerned. States he does not follow [employer] operations intelligence officer. Voices compliance with cholesterol medicine. Continues to smoke cigarettes. Cannot recall being on a beta alise. Denies recent illness. Denies fevers or chills. Last stress test was about 9 months ago small area of mild reversibility along the septum towards the base. Read as a low risk study and medical management was decided. Review of Systems General: Patient denies fevers, chills recent, and recent travel HEENT: Patient denies headache, sore throat, difficulty swallowing. Cardiovascular: Has the chest discomfort as mentioned above. Denies sensation of heart beating rapidly or irregularly. No syncope. Denies diaphoresis. Respiratory: Denies shortness of breath or inspirational chest discomfort. Denies coughing wheezing or hemoptysis. GI: Patient denies nausea, vomiting, diarrhea, abdominal pain, bloody stools. Musculoskeletal: Patient denies joint pain or edema. Denies calf pain or edema. Neurovascular: Patient denies numbness, tingling, weakness in extremities. Denies headache. Endocrine: Denies polyuria and polydipsia. Hematologic: Denies easy bruising. Skin: Denies rash or itching. Past Family Social History Allergies: Coded Allergies: quinine (Unverified Allergy, Severe, UPPER EXTREMITIES BLEED, 12/27/16) Sulfa (Sulfonamide Antibiotics) (Unverified Allergy, Mild, UNK, 12/27/16) penicillin G (Unverified Allergy, Mild, UNK, 12/27/16) Past Medical History CAD with reported stent about 5 or 6 years ago. Hypertension, hyperlipidemia, diabetes, and tobacco abuse. Past Surgical History Cardiac catheterization with stent 5 or 6 years ago. Reported Medications Reported Meds & Active Scripts Active Tramadol-Acetaminophen 37.5-325 mg Tab 1 Tab PO Q8HR PRN Amlactin (Lactic Acid (Ammonium Lactate)) 12 % Lot 1 Applic TOPICAL TID Reported Ranitidine (Ranitidine HCl) 150 Mg Tab 150 Mg PO BID Metformin ER (Metformin HCl) 1,000 Mg Conor 1,000 Mg PO BIDAC With evening meal Lisinopril 10 Mg Tab 10 Mg PO DAILY Atorvastatin (Atorvastatin Calcium) 80 Mg Tab 80 Mg PO HS Active Ordered Medications Current Medications Medications (Trade) Dose Ordered Sig/Aly Route Start Time Stop Time Status Last Admin (NS Flush) 2 ml UNSCH PRN IVF 05/09/17 18:15 (NS Flush) 2 ml UNSCH PRN IV FLUSH 05/09/17 19:15 (NS Flush) 2 ml BID IV FLUSH 05/09/17 21:00 05/09/17 23:02 (Nitroglycerin 2% Oint) 1 inch Q6HR TOP 05/09/17 19:15 05/10/17 00:14 (Lipitor) 80 mg HS PO 05/10/17 21:00 (Prinivil) 10 mg DAILY PO 05/10/17 09:00 (Aspirin) 325 mg DAILY PO 05/10/17 09:00 UNV (NovoLOG SUPPLEMENTAL SCALE) 1 ACHS SLIDING SCALE SQ 05/10/17 12:00 UNV (D50w (Vial) Inj) 50 ml UNSCH PRN IV PUSH 05/10/17 08:30 UNV (Glucagon Inj) 1 mg UNSCH PRN OTHER 05/10/17 08:30 UNV (Duoneb Neb) 1 ampule Q4HR NEB PRN INH 05/10/17 08:30 UNV (Protonix) 40 mg DAILY PO 05/10/17 09:00 UNV Family History There is family history of CAD. Social History Patient continues to smoke about half pack of cigarettes daily and has done so for more than 50 years. Denies alcohol or illicit drugs. Physical Exam Vital Signs Vital Signs Date Time Temp Pulse Resp B/P (MAP) Pulse Ox O2 Delivery O2 Flow Rate FiO2 05/10/17 07:54 97.7 85 18 151/79 (103) 97 05/10/17 03:42 75 05/10/17 00:47 97.0 80 18 107/66 (80) 95 05/10/17 00:04 71 05/09/17 20:47 98.7 79 18 128/70 (89) 97 05/09/17 20:31 75 05/09/17 18:22 100 Nasal Cannula 2.00 05/09/17 18:22 100 Nasal Cannula 2.00 05/09/17 18:22 100 Nasal Cannula 2.00 05/09/17 18:01 98.6 86 16 108/69 (82) 98 Physical Exam GENERAL: This is a well-nourished, well-developed patient, in no apparent distress. Patient speaks in clear complete sentences. Patient is pleasant. HEENT: Head is atraumatic and normocephalic. Neck is supple without lymphadenopathy and trachea is midline. No JVD or carotid bruits. CARDIOVASCULAR: Regular rate and rhythm without murmurs, gallops, or rubs. RESPIRATORY: Clear to auscultation. Breath sounds equal bilaterally. No wheezes , rales, or rhonchi. Chest wall is nontender. No use of accessory muscles. GASTROINTESTINAL: Abdomen is nontender, nondistended. Abdomen soft. No obvious pulsatile mass or bruit. No CVA tenderness. Strong femoral pulses bilaterally. Normal bowel sounds in all quadrants. MUSCULOSKELETAL: Patient is moving upper and lower extremities freely. No calf tenderness or edema, no Homans sign. Strong pulses in upper and lower extremities. NEUROLOGICAL: Patient is alert and oriented. Cranial nerves 2-12 are grossly intact. No focal deficits and speech is clear. SKIN: No rash and turgor is normal. Laboratory Laboratory Tests Test 05/09/17 16:15 05/09/17 20:00 White Blood Count 9.1 Red Blood Count 5.16 Hemoglobin 16.0 Hematocrit 45.9 Mean Corpuscular Volume 88.9 Mean Corpuscular Hemoglobin 31.0 Mean Corpuscular Hemoglobin Concent 34.9 Red Cell Distribution Width 14.3 Platelet Count 218 Mean Platelet Volume 8.7 Neutrophils (%) (Auto) 66.3 Lymphocytes (%) (Auto) 22.2 Monocytes (%) (Auto) 8.7 Eosinophils (%) (Auto) 1.7 Basophils (%) (Auto) 1.1 Neutrophils # (Auto) 6.0 Lymphocytes # (Auto) 2.0 Monocytes # (Auto) 0.8 Eosinophils # (Auto) 0.2 Basophils # (Auto) 0.1 CBC Comment DIFF FINAL Differential Comment Prothrombin Time 10.6 Prothromb Time International Ratio 1.0 Activated Partial Thromboplast Time 25.0 Blood Urea Nitrogen 14 Creatinine 0.87 Random Glucose 158 Calcium Level 8.7 Magnesium Level 1.7 Sodium Level 135 Potassium Level 4.0 Chloride Level 104 Carbon Dioxide Level 26.1 Anion Gap 5 Estimat Glomerular Filtration Rate 85 Total Creatine Kinase 54 59 Troponin I LESS THAN 0.02 LESS THAN 0.02 Result Diagram: 05/09/17 1615 05/09/17 1615 Imaging Last 48 hours Impressions Chest X-Ray 05/09/17 1811 Signed Impressions: Service Date/Time: Tuesday, May 09, 2017 18:33 - CONCLUSION: No evidence of acute cardiopulmonary disease. Stephane Brunner MD Course EKGs are sinus rhythm with nonspecific T-wave changes. Q waves inferiorly and laterally. Caprini VTE Risk Assessment Caprini VTE Risk Assessment: Mod/High Risk (score >= 2) Caprini Risk Assessment Model Point Value = 1 Point Value = 2 Point Value = 3 Point Value = 5 Age 41-60 Minor surgery BMI > 25 kg/m2 Swollen legs Varicose veins or History of unexplained or recurrent spontaneous Oral contraceptives or hormone replacement Sepsis (< 1 month) Serious lung disease, including pneumonia (< 1 month) Abnormal pulmonary function Acute myocardial infarction Congestive heart failure (< 1 month) History of inflammatory bowel disease Medical patient at bed rest Age 61-74 Arthroscopic surgery Major open surgery (> 45 min) Laparoscopic surgery (> 45 min) Malignancy Confined to bed (> 72 hours) Immobilizing plaster cast Central venous access Age >= 75 History of VTE Family history of VTE Factor V Leiden Prothrombin [id number] Lupus anticoagulant Anticardiolipin antibodies Elevated serum homocysteine Heparin-induced thrombocytopenia Other congenital or acquired thrombophilia Stroke (< 1 month) Elective arthroplasty Hip, pelvis, or leg fracture Acute spinal cord injury (< 1 month) Prophylaxis Regimen Total Risk Factor Score Risk Level Prophylaxis Regimen 0-1 Low Early ambulation 2 Moderate Order ONE of the following: *Sequential Compression Device (SCD) *Heparin 5000 units SQ BID 3-4 Higher Order ONE of the following medications: *Heparin 5000 units SQ TID *Enoxaparin/Lovenox 40 mg SQ daily (WT < 150 kg, CrCl > 30 mL/min) *Enoxaparin/Lovenox 30 mg SQ daily (WT < 150 kg, CrCl > 10-29 mL/min) *Enoxaparin/Lovenox 30 mg SQ BID (WT < 150 kg, CrCl > 30 mL/min) AND/OR *Sequential Compression Device (SCD) 5 or more Highest Order ONE of the following medications: *Heparin 5000 units SQ TID (Preferred with Epidurals) *Enoxaparin/Lovenox 40 mg SQ daily (WT < 150 kg, CrCl > 30 mL/min) *Enoxaparin/Lovenox 30 mg SQ daily (WT < 150 kg, CrCl > 10-29 mL/min) *Enoxaparin/Lovenox 30 mg SQ BID (WT < 150 kg, CrCl > 30 mL/min) AND *Sequential Compression Device (SCD) Assessment and Plan Assessment and Plan * Chest pain: Patient has had serial cardiac enzymes and EKGs for ruling out purposes. He was seen by Dr. Russell Rebolledo of cardiology in the chest pain center and will undergo a Lexiscan. He'll be discharged home if his Lexiscan was nonischemic with instructions to follow-up with PCP. He also should make arrangements to follow-up with a [employer] operations intelligence officer. He should return to ED for interval issues. * CAD: We'll reassess with stress testing. He should resume his medications. * Hypertension: Continue current medication. * Hyperlipidemia: Continue current medication. * Diabetes: Resume medication discharge. He'll be on sliding scale insulin coverage while in the chest pain center. She'll follow diabetic diet. * Tobacco abuse: Patient has been counseled on importance of smoking cessation. Patient is stable at this time. He is agreeable to this plan. Jorge Andino May 10, 2017 08:27
[2017-05-10] MEDS ORDERED: RESP: ALBUTEROL 2.5 MG/IPRATROPIUM 0.5 MG NEB (PRN) INH (08:30)
[2017-05-10] MEDS ORDERED: DEXTROSE 50% IN WATER 50 ML VIAL(D50) IV PUSH PRN (08:30)
[2017-05-10] MEDS ORDERED: GLUCAGON 1 MG/ML VIAL OTHER PRN (08:30)
[2017-05-10] MEDS ORDERED: ASPIRIN 325 MG TAB PO SCH (09:00)
[2017-05-10] MEDS ORDERED: PANTOPRAZOLE SOD 40 MG DELAYED RELEASE TAB PO SCH (09:00)
[2017-05-10] MEDS ORDERED: LISINOPRIL 10 MG TAB PO SCH (09:00)
[2017-05-10] MEDS: SODIUM CHLORIDE 0.9% FLUSH 10 ML FLUSH IV FLUSH SCH (09:00)
[2017-05-10] MEDS ORDERED: REGADENOSON INJ 0.4 MG/5 ML SYR ONE (09:55)
--- NOTE | 2017-05-10 11:17 | RADRPT ---
EXAM DATE/TIME: 05/10/2017 09:23 [facility] COMPARISON: MYOCARDIAL PERF PHARM SPECT, GATED W/EF, July 31, 2016, 11:08. INDICATIONS : Substernal chest pain. Angina. DOSE: 27.2 mCi Tc99m Myoview at stress. 8.4 mCi Tc99m Myoview at rest. 0.4 mg Lexiscan STRESS SYMPTOMS: Neck tightness and headache. EJECTION FRACTION: 64% MEDICAL HISTORY : Myocardial infarction. Congestive heart failure. Diabetes mellitus type 2. Hypertension. Smoker. SURGICAL HISTORY : Coronary artery stent. Appendectomy. ENCOUNTER: Initial ACUITY: 2 days PAIN SCALE: 5/10 LOCATION: Substernal chest TECHNIQUE: The patient underwent pharmacologic stress with infusion of prescribed dose. Continuous ECG tracing was monitored during stress. Gated SPECT imaging was performed after stress and conventional SPECT i maging was performed at rest. The examination was performed on a SPECT/CT scanner, both attenuation and non-corrected datasets were reviewed. FINDINGS: DISTRIBUTION: The maximum perfused segment at stress is in the anterolateral wall. PERFUSION STUDY: A fixed antonino-apical perfusion perfusion abnormality is identified during stress and rest. There is hy poperfusion throughout the inferior wall which is unchanged compared to previous study. There are no stress-induced reversible abnormalities. GATED STUDY: There is intact wall motion and thickening without hypokinetic or dyskinetic segments. CONCLUSION: 1. Fixed periapical perfusion abnormality 2. No evidence of stress induced reversible perfusion abnormalities. 3. Well-preserved left ventricular function and ejection fraction. RISK CATEGORY: Low (<1% Annual Mortality Rate) Mg Ellis MD on May 10, 2017 at 11:11 Board Certified Radiologist. This report was verified electronically.
--- NOTE | 2017-05-10 11:37 | HHI.DCPOC ---
Discharge Care Plan Diagnosis: (1) Chest pain (2) CAD (coronary artery disease) (3) H/O heart artery stent (4) HTN (hypertension) (5) DM (diabetes mellitus) (6) Hyperlipidemia (7) Tobacco abuse Goals to Promote Your Health * To prevent worsening of your condition and complications * To maintain your health at the optimal level Directions to Meet Your Goals Take your medications as prescribed Follow your dietary instruction Follow activity as directed Keep your appointments as scheduled Take your immunizations and boosters as scheduled If your symptoms worsen call your PCP, if no PCP go to Urgent Care Center or Emergency Room Smoking is Dangerous to Your Health. Avoid second hand smoke Call the 24-hour hour crisis hotline for domestic abuse at Jorge Andino May 10, 2017 11:37
[2017-05-10] MEDS ORDERED: INSULIN ASPART SUPPLEMENTAL SCALE SQ SCH (12:00)
--- NOTE | 2017-05-10 14:58 | EKG ---
Date Performed: 05/09/2017 Time Performed: 18:11:23 PTAGE: 77 years EKG: Sinus rhythm LOW QRS VOLTAGE IN PRECORDIAL LEADS INCOMPLETE RIGHT BUNDLE BRANCH BLOCK POSSIBLE ANTERIOR MYOCARDIA L INFARCTION INFERIOR MYOCARDIAL INFARCTION ABNORMAL ECG PREVIOUS TRACING : 08/16/2016 19.43 DOCTOR: Anirudh Le Interpretating Date/Time 05/10/2017 14:57:53
--- NOTE | 2017-05-10 16:37 | EKG ---
Date Performed: 05/09/2017 Time Performed: 21:34:15 PTAGE: 77 years EKG: Sinus rhythm LOW QRS VOLTAGE IN PRECORDIAL LEADS INFERIOR MYOCARDIAL INFARCTION ANTEROLATERAL MYOCARDIAL INFARCTI ON ABNORMAL ECG WARNING: DATA QUALITY MAY AFFECT INTERPRETATION PREVIOUS TRACING : 05/09/2017 21.33 Since previous tracing, no significant change noted DOCTOR: Russell Rebolledo Interpretating Date/Time 05/11/2017 06:43:36
--- NOTE | 2017-05-10 16:37 | EKG ---
Date Performed: 05/10/2017 Time Performed: 00:46:49 PTAGE: 77 years EKG: Sinus rhythm WITH OCCASIONAL VENTRICULAR PREMATURE COMPLEXES LOW QRS VOLTAGE IN PRECORDIAL LEADS INFERIOR MYOCARD IAL INFARCTION ANTEROLATERAL MYOCARDIAL INFARCTION ABNORMAL ECG WARNING: DATA QUALITY MAY AFFECT INTE RPRETATION PREVIOUS TRACING : 05/09/2017 21.34 Since previous tracing, no significant change noted DOCTOR: Russell Rebolledo Interpretating Date/Time 05/10/2017 16:35:08
--- NOTE | 2017-05-10 16:38 | TR ---
Date Performed: 05/10/2017 Time Performed: 09:46:06 DOCTOR: Russell Rebolledo DRUG LIST: CLINICAL HISTORY: CHEST PAIN REASON FOR TEST: CORONARY ARTERY DISEASE REASON FOR ENDING: OBSERVATION: CONCLUSION: Lexiscan stress test was performed under standard four minute protocol. Radionuclid e was injected one minute prior to ending the test. No electrocardiographic abormalities were present to suggest ischemia. Nuclear imaging and interpretation are pending. COMMENTS:
--- NOTE | 2017-05-10 16:38 | EKG ---
Date Performed: 05/10/2017 Time Performed: 03:37:01 PTAGE: 77 years EKG: Sinus rhythm LOW QRS VOLTAGE IN PRECORDIAL LEADS ANTEROLATERAL MYOCARDIAL INFARCTION ABNORMAL ECG INTERPRETATION BASED ON A DEFAULT AGE OF 40 YEARS NO PREVIOUS TRACING DOCTOR: Russell Rebolledo Interpretating Date/Time 05/10/2017 16:36:36
[2017-05-10] MEDS ORDERED: ATORVASTATIN 80 MG TAB PO SCH (21:00)
== END 2017-05-10 14:56 | disposition home or self-care (01) ==
LOC: NEPE 17:58 → NEDA 19:14 → NEPFCDU 19:40
PROVIDERS: ADMIT Internal Medicine Interventional Cardiology; ATTEND Internal Medicine Interventional Cardiology
DX: R07.9 Chest pain, unspecified (principal); I25.10 Atherosclerotic heart disease of native coronary artery without angina pectoris; I10 Essential (primary) hypertension; R94.31 Abnormal electrocardiogram [ECG] [EKG]; E78.5 Hyperlipidemia, unspecified; E11.9 Type 2 diabetes mellitus without complications; F17.210 Nicotine dependence, cigarettes, uncomplicated; Z95.5 Presence of coronary angioplasty implant and graft; Z79.84 Long term (current) use of oral hypoglycemic drugs
CPT/HCPCS: 71010; 78452; 80048; 82550; 82948; 83735; 84484; 85025; 85610; 85730; 93005; 93017; 99285; A9502; G0378; J2785

== ENCOUNTER 2018-07-11 13:24 | Observation (INO) ==
--- NOTE | 2018-07-11 13:49 | ED ---
HPI General Chief Complaint: Chest Pain Stated Complaint: Chest Pain Time Seen by Provider: 07/11/18 13:33 Source: patient Mode of arrival: ambulatory Limitations: no limitations History of Present Illness HPI narrative: 78-year-old male with a history of coronary artery disease and angina presents for evaluation of 3 episodes of sharp left-sided chest pain. The first episode lasted approximately 25 minutes and resolved after 1 nitro. Afterwards patient had 2 additional episodes which each resolved after nitro. Pain did not occur exertion and did not worsen with exertion. Patient currently denies chest pain. Pain feels different from when patient had a myocardial infarction in the past. MD complaint: Reports chest pain Onset (ago): hour(s) (2) Duration: intermittent Onset: during rest Pain location: Reports left chest Severity: moderate Quality: Reports sharp Pain radiation: Reports none Relieving factors: nitroglycerin Exacerbating factors: nothing Context: Denies recent illness, recent surgery, recent immobilization, recent travel, trauma/injury and history of DVT/PE Associated symptoms: Reports leg swelling (for several months); Denies nausea, vomiting, diaphoresis, dyspnea, sense of impending doom, syncope, palpitations, fever and cough Related Data Home Medications Medication Instructions Recorded Confirmed aspirin 81 mg PO DAILY 07/11/18 07/11/18 lisinopril PO DAILY 07/11/18 Allergies Allergy/AdvReac Type Severity Reaction Status Date / Time quinine Allergy Severe UPPER Verified 07/11/18 13:40 EXTREMITIES BLEED penicillin G Allergy Mild UNK Verified 07/11/18 13:40 Sulfa (Sulfonamide Allergy Mild UNK Verified 07/11/18 13:40 Antibiotics) Review of Systems ROS: all other systems reviewed are negative [facility] Medical History Medical History Angina pectoris (Acute) Diabetes mellitus (Acute) HTN (hypertension) (Acute) Myocardial infarction (Acute) Surgical History Surgical History History of carpal tunnel surgery of left wrist (Acute) History of heart artery stent (Acute) Social History Social History Substance History: No History of Abuse Smoking Status: Current every day smoker Tobacco Type: Cigarettes How Often Do You Have a Drink Containing Alcohol: Never Recent Travel in [facility] within the Last 8 Weeks: No Recent Out of Country Travel within the Last 8 Weeks: No Immunization History Tetanus Immunization: >5 Years Exam Narrative Exam Narrative: GENERAL: Awake, alert, no acute distress SKIN: Focused skin assessment warm/dry. HEAD: Atraumatic. Normocephalic. EYES: Pupils equal and round. No scleral icterus. No injection or drainage. ENT: No nasal bleeding or discharge. Mucous membranes pink and moist. NECK: Trachea midline. No JVD. CARDIOVASCULAR: Regular rate and rhythm. No murmur appreciated. RESPIRATORY: No accessory muscle use. Clear to auscultation. Breath sounds equal bilaterally. GASTROINTESTINAL: Abdomen soft, non-tender, nondistended. Hepatic and splenic margins not palpable. MUSCULOSKELETAL: No obvious deformities. No clubbing. No cyanosis. Chronic venous stasis bilateral lower extremities with 1+ edema NEUROLOGICAL: Awake and alert. No obvious cranial nerve deficits. Motor grossly within normal limits. Normal speech. PSYCHIATRIC: Appropriate mood and affect; insight and judgment normal. Course Initial Documented Vital Signs Pulse Rate 72 07/11/18 13:33 Respiratory Rate 20 07/11/18 13:33 Blood Pressure 142/68 H 07/11/18 13:33 Pulse Oximetry 96 07/11/18 13:33 Last Documented Vital Signs Pulse Rate 48 L 07/11/18 15:39 Respiratory Rate 18 07/11/18 15:39 Blood Pressure 133/62 07/11/18 15:39 Pulse Oximetry 96 07/11/18 15:39 Medical Decision Making MDM Narrative Medical decision making narrative: 78-year-old male with a history of coronary artery disease with stent placement presents for evaluation of chest pain. Patient has had multiple episodes each resolved by nitro. EKG is unchanged from previous. First troponin negative. Discussed with cardiology who saw patient. It turns out patient has had a cardiac catheterization in the last month which was abnormal and he was recommended to undergo a bypass surgery. Will admit patient to medicine for stable versus unstable angina. Medical Screen Exam Complete: Yes Emergency Medical Condition: Yes Lab Data Lab results reviewed: Yes I reviewed the patient's lab results. Result diagrams: 07/11/18 13:41 07/11/18 13:41 Lab Results 07/11/18 07/11/18 07/11/18 Range/Units 13:41 13:41 13:41 WBC 7.2 (4.0-11.0) th/mm3 RBC 4.74 (4.50-5.90) mil/mm3 Hgb 14.7 (13.0-17.0) gm/dL Hct 43.6 (39.0-51.0) % MCV 91.9 (80.0-100.0) fL MCH 31.0 (27.0-34.0) pg MCHC 33.7 (32.0-36.0) % RDW 14.1 (11.6-17.2) % Plt Count 167 (150-450) th/mm3 MPV 9.5 (7.0-11.0) fL Neut % (Auto) 61.6 (16.0-70.0) % Lymph % (Auto) 25.6 (9.0-44.0) % [place] % (Auto) 8.4 H (0.0-8.0) % Eos % (Auto) 3.4 (0.0-4.0) % Baso % (Auto) 1.0 (0.0-2.0) % Neut # (Auto) 4.4 (1.8-7.7) th/mm3 Lymph # (Auto) 1.8 (1.0-4.8) th/mm3 [place] # (Auto) 0.6 (0.0-0.9) th/mm3 Eos # (Auto) 0.2 (0.0-0.4) th/mm3 Baso # (Auto) 0.1 (0.0-0.2) th/mm3 WBC Differential . Differential Comment Auto diff final PT 10.9 (9.8-11.6) sec INR 1.1 Ratio APTT 28.0 (23.4-31.7) sec Sodium 140 (136-145) meq/L Potassium 4.6 (3.5-5.1) meq/L Chloride 108 H (98-107) meq/L Carbon Dioxide 27.8 (21.0-32.0) meq/L Anion Gap 4 L (5-15) meq/L BUN 22 H (7-18) mg/dL Creatinine 1.00 (0.60-1.30) mg/dL Estimated GFR 72 L (>89) mL/min Random Glucose 149 H (74-106) mg/dL Calcium 8.1 L (8.5-10.1) mg/dL Total Bilirubin 0.3 (0.2-1.0) mg/dL AST 32 (15-37) U/L ALT 54 (12-78) U/L Alkaline Phosphatase 1197 H (45-117) U/L Troponin I Less than 0.02 L (0.02-0.05) ng/mL B-Natriuretic Peptide (0-100) pg/mL Total Protein 7.1 (6.4-8.2) g/dL Albumin 3.4 (3.4-5.0) g/dL 07/11/18 Range/Units 13:41 WBC (4.0-11.0) th/mm3 RBC (4.50-5.90) mil/mm3 Hgb (13.0-17.0) gm/dL Hct (39.0-51.0) % MCV (80.0-100.0) fL MCH (27.0-34.0) pg MCHC (32.0-36.0) % RDW (11.6-17.2) % Plt Count (150-450) th/mm3 MPV (7.0-11.0) fL Neut % (Auto) (16.0-70.0) % Lymph % (Auto) (9.0-44.0) % [place] % (Auto) (0.0-8.0) % Eos % (Auto) (0.0-4.0) % Baso % (Auto) (0.0-2.0) % Neut # (Auto) (1.8-7.7) th/mm3 Lymph # (Auto) (1.0-4.8) th/mm3 [place] # (Auto) (0.0-0.9) th/mm3 Eos # (Auto) (0.0-0.4) th/mm3 Baso # (Auto) (0.0-0.2) th/mm3 WBC Differential Differential Comment PT (9.8-11.6) sec INR Ratio APTT (23.4-31.7) sec Sodium (136-145) meq/L Potassium (3.5-5.1) meq/L Chloride (98-107) meq/L Carbon Dioxide (21.0-32.0) meq/L Anion Gap (5-15) meq/L BUN (7-18) mg/dL Creatinine (0.60-1.30) mg/dL Estimated GFR (>89) mL/min Random Glucose (74-106) mg/dL Calcium (8.5-10.1) mg/dL Total Bilirubin (0.2-1.0) mg/dL AST (15-37) U/L ALT (12-78) U/L Alkaline Phosphatase (45-117) U/L Troponin I (0.02-0.05) ng/mL B-Natriuretic Peptide 65 (0-100) pg/mL Total Protein (6.4-8.2) g/dL Albumin (3.4-5.0) g/dL Imaging Data Radiologist's impression: Chest X-Ray 07/11/18 13:43 CONCLUSION: The lungs are clear. ECG Data Attestation: I personally reviewed and interpreted this ECG as follows: Interpretation: Normal sinus rhythm, rate of 75, diffuse T wave flattening and low voltage QRS, incomplete right bundle branch pattern, no change from previous 05/10/2017 Discharge Plan Discharge Disposition Patient Disposition: ED Admit(ED Internal Use Only) Discharge Condition Condition: Stable Discharge Order Discharge Orders: ED Use Only Admit Order (Routine); Ordered 07/11/18 Ordered By: Zulema Marti Discharge Details Diagnosis: Chest pain Physicians Team ED Provider: Zulema Marti Primary Care Provider: Primary Care Sheree Rodriguez Rxs /Orders / Referrals /Forms Prescriptions: No Action aspirin 81 mg Tablet,Chewable 81 mg PO DAILY RF: 0 lisinopril PO DAILY RF: 0 Discharge Instructions Patient Printed Instructions: Chest Pain (ED) Discharge Interventions Interventions: Vital Signs Last Done: 07/11/18 13:39 Status ED Status: In Room
[2018-07-11 14:06] LABS: Baso # (Auto) 0.1 th/mm3 (0.0-0.2); Eos # (Auto) 0.2 th/mm3 (0.0-0.4); Eos % (Auto) 3.4 % (0.0-4.0); Hematocrit 43.6 % (39.0-51.0); Hemoglobin 14.7 gm/dL (13.0-17.0); Lymph # (Auto) 1.8 th/mm3 (1.0-4.8); Lymph % (Auto) 25.6 % (9.0-44.0); Mean Corpuscular HGB Conc 33.7 % (32.0-36.0); Mean Corpuscular Volume 91.9 fL (80.0-100.0); Mean Platelet Volume 9.5 fL (7.0-11.0); Mono # (Auto) 0.6 th/mm3 (0.0-0.9); Mono % (Auto) 8.4 % (0.0-8.0); Neut # (Auto) 4.4 th/mm3 (1.8-7.7); Neut % (Auto) 61.6 % (16.0-70.0); Platelet Count 167 th/mm3 (150-450); Red Blood Count 4.74 mil/mm3 (4.50-5.90); Red Cell Distribution Width 14.1 % (11.6-17.2); White Blood Count 7.2 th/mm3 (4.0-11.0)
--- NOTE | 2018-07-11 14:08 | XR ---
EXAM DATE: 07/11/2018 2:05 PM EST AGE/SEX: 78 years / Male INDICATIONS: Chest pain. Patient states that his chest pain comes and goes. CLINICAL DATA: This is the patient's initial encounter. Patient reports that signs and symptoms have been present for 1 day and indicates a pain score of 8/10. MEDICAL/SURGICAL HISTORY: . Arthritis. Diabetes mellitus type 2. Hypertension. High cholesterol . [place] x3 Appendectomy. COMPARISON: [facility] [place], CHEST SINGLE AP, 05/09/2017. . FINDINGS: A single AP view of the chest demonstrates the lungs to be symmetrically aerated without evidence of mass, infiltrate or effusion. The cardiomediastinal contours are unremarkable. Osseous structures a re intact. CONCLUSION: The lungs are clear. Electronically signed by: Robert Richard MD Board Certified Radiologist 07/11/2018 2:06 PM EST
[2018-07-11 14:15] LABS: INR 1.1 Ratio; Prothrombin Time 10.9 sec (9.8-11.6)
[2018-07-11 14:36] LABS: Alanine Aminotransferase 54 U/L (12-78); Albumin 3.4 g/dL (3.4-5.0); Anion Gap 4 meq/L (5-15); Aspartate Aminotransferase 32 U/L (15-37); Blood Urea Nitrogen 22 mg/dL (7-18); Calcium 8.1 mg/dL (8.5-10.1); Carbon Dioxide 27.8 meq/L (21.0-32.0); Chloride 108 meq/L (98-107); Glomerular Filtration Rate 72 mL/min (>89); Glucose,Random 149 mg/dL (74-106); Potassium 4.6 meq/L (3.5-5.1); Sodium 140 meq/L (136-145)
[2018-07-11 14:42] LABS: Alkaline Phosphatase 1197 U/L (45-117); Total Protein 7.1 g/dL (6.4-8.2)
[2018-07-11] MEDS ORDERED: Acetaminophen 325 MG Tablet PO PRN (15:46)
[2018-07-11] MEDS ORDERED: Bisacodyl 10 MG Supp RECTAL PRN (15:46)
--- NOTE | 2018-07-11 15:50 | P.HPIM ---
History of Present Illness Service: Hospitalist Primary Care Physician: No Primary Care Physician Chief Complaint: Chest pain History of Present Illness: Mr. Chavez is a pleasant 78-year-old with a history of CAD, hypertension who presents to the emergency department on 07/11/2018 due to acute onset of left-sided sharp chest pain. Around 11:30 AM, patient was sitting down when he experienced acute onset of sharp left-sided chest pain. His chest pain did not radiate anywhere. He did not have any nausea vomiting or diaphoresis. He took a nitroglycerin which subsided his symptoms only to return to more times. He subsequently called EMS to come to the hospital. Patient denies any abdominal pain, cough, fever or chills. Denies any changes in bowel or bladder habits. Past medical history: CAD status post stent placement 12 years ago, hypertension , diabetes mellitus. Past surgical history: Left wrist surgery, appendectomy Social history: Patient smokes about 2.5 packs a day. He does not want to quit smoking. He does not use alcohol or illicit drugs. Family history: Father from cancer. Mom lived to be 95. Review of Systems Review of Systems: all other systems reviewed are negative [facility] Medical History Medical History Angina pectoris (Acute) Diabetes mellitus (Acute) HTN (hypertension) (Acute) Myocardial infarction (Acute) Surgical History Surgical History History of carpal tunnel surgery of left wrist (Acute) History of heart artery stent (Acute) Social History Social History Substance History: No History of Abuse Smoking Status: Current every day smoker Tobacco Type: Cigarettes How Often Do You Have a Drink Containing Alcohol: Never Recent Travel in [facility] within the Last 8 Weeks: No Recent Out of Country Travel within the Last 8 Weeks: No Immunization History Tetanus Immunization: >5 Years Medications and Allergies Allergies Allergy/AdvReac Type Severity Reaction Status Date / Time quinine Allergy Severe UPPER Verified 07/11/18 13:40 EXTREMITIES BLEED penicillin G Allergy Mild UNK Verified 07/11/18 13:40 Sulfa (Sulfonamide Allergy Mild UNK Verified 07/11/18 13:40 Antibiotics) Home Medications Medication Instructions Recorded Confirmed Type aspirin 81 mg PO DAILY 07/11/18 07/11/18 History lisinopril PO DAILY 07/11/18 History Active Medications: Active Medications Acetaminophen (Tylenol) 650 mg PO Q4H PRN PRN Reason: Headache, fever, pain 1-4 Al Hydroxide/Mg Hydroxide (Milk Of Magnesia Liq) 30 ml PO Q12H PRN PRN Reason: Mild Constipation Bisacodyl (Dulcolax Supp) 10 mg RECTAL DAILY PRN PRN Reason: SEVERE CONSITIPATION Enoxaparin Sodium (Lovenox Inj) 40 mg SQ Q24H RIP Lactulose (Lactulose Liq) 30 ml PO DAILY PRN PRN Reason: SEVERE CONSITIPATION Ondansetron HCl (Zofran Inj) 4 mg IV.PUSH Q6H PRN PRN Reason: NAUSEA OR VOMITING Sennosides (Senokot) 17.2 mg PO Q12H PRN PRN Reason: Moderate Constipation Sodium Chloride (Ns Flush) 2 ml IV.FLUSH UNSCH PRN PRN Reason: FLUSH AFTER USING IV ACCESS Sodium Chloride (Ns Flush) 2 ml IV.FLUSH BID RIP Sodium Chloride (Ns Flush) 2 ml IV.FLUSH PRN PRN PRN Reason: FLUSH AFTER USING IV ACCESS Physical Exam Vital signs: Vital Signs 07/11/18 13:33 07/11/18 13:39 07/11/18 13:59 Pulse Rate 72 44 L 48 L Respiratory Rate 20 Blood Pressure 142/68 H Pulse Oximetry 96 97 07/11/18 15:39 Pulse Rate 48 L Respiratory Rate 18 Blood Pressure 133/62 Pulse Oximetry 96 Intake & Output 07/10/18 07/11/18 07/11/18 18:59 06:59 18:59 Weight 67.585 kg Narrative: GENERAL: This is a well-nourished, well-developed patient, in no apparent distress. SKIN: No rashes, ecchymoses or lesions. Warm and dry. HEAD: Atraumatic. Normocephalic. No temporal or scalp tenderness. EYES: Pupils equal round and reactive. No injection or drainage. ENT: Nose without bleeding, purulent drainage or septal hematoma. Airway patent. NECK: Trachea midline. No lymphadenopathy. Supple, nontender, no meningeal signs. CARDIOVASCULAR: Regular rate and rhythm without murmurs, gallops, or rubs. No JVD. No chest wall tenderness on palpation. RESPIRATORY: Clear to auscultation. Breath sounds equal bilaterally. No wheezes , rales, or rhonchi. GASTROINTESTINAL: Abdomen soft, non-tender, nondistended. No guarding. MUSCULOSKELETAL: Extremities without clubbing, cyanosis. There is bilateral lower extremity mild edema as well as erythema. NEUROLOGICAL: Awake and alert. Cranial nerves II through XII intact. No focal neurological deficits. Normal speech. Results Labs CBC & Chem 7: 07/11/18 13:41 07/11/18 13:41 Imaging Impressions Chest X-Ray 07/11/18 13:43 CONCLUSION: The lungs are clear. Caprini VTE Risk Assessment Caprini VTE Risk Assessment: Moderate/High Risk (score >= 2) Caprini Risk Assessment Model: Point Value = 1 Point Value = 2 Point Value = 3 Point Value = 5 Age 41-60 Minor surgery BMI > 25 kg/m2 Swollen legs Varicose veins or History of unexplained or recurrent spontaneous Oral contraceptives or hormone replacement Sepsis (< 1 month) Serious lung disease, including pneumonia (< 1 month) Abnormal pulmonary function Acute myocardial infarction Congestive heart failure (< 1 month) History of inflammatory bowel disease Medical patient at bed rest Age 61-74 Arthroscopic surgery Major open surgery (> 45 min) Laparoscopic surgery (> 45 min) Malignancy Confined to bed (> 72 hours) Immobilizing plaster cast Central venous access Age >= 75 History of VTE Family history of VTE Factor V Leiden Prothrombin [id number] Lupus anticoagulant Anticardiolipin antibodies Elevated serum homocysteine Heparin-induced thrombocytopenia Other congenital or acquired thrombophilia Stroke (< 1 month) Elective arthroplasty Hip, pelvis, or leg fracture Acute spinal cord injury (< 1 month) Prophylaxis Regimen: Total Risk Factor Score Risk Level Prophylaxis Regimen 0-1 Low Early ambulation 2 Moderate Order ONE of the following: *Sequential Compression Device (SCD) *Heparin 5000 units SQ BID 3-4 Higher Order ONE of the following medications: *Heparin 5000 units SQ TID *Enoxaparin/Lovenox 40 mg SQ daily (WT < 150 kg, CrCl > 30 mL/min) *Enoxaparin/Lovenox 30 mg SQ daily (WT < 150 kg, CrCl > 10-29 mL/min) *Enoxaparin/Lovenox 30 mg SQ BID (WT < 150 kg, CrCl > 30 mL/min) AND/OR *Sequential Compression Device (SCD) 5 or more Highest Order ONE of the following medications: *Heparin 5000 units SQ TID (Preferred with Epidurals) *Enoxaparin/Lovenox 40 mg SQ daily (WT < 150 kg, CrCl > 30 mL/min) *Enoxaparin/Lovenox 30 mg SQ daily (WT < 150 kg, CrCl > 10-29 mL/min) *Enoxaparin/Lovenox 30 mg SQ BID (WT < 150 kg, CrCl > 30 mL/min) AND *Sequential Compression Device (SCD) Assessment and Plan Plan Mr. Chavez is a very pleasant 78-year-old with a history of coronary artery disease who presents to the emergency department on 07/11/2018 due to acute onset of sharp left-sided chest pain without any radiation or association with nausea vomiting or diaphoresis. His symptoms indeed improved with nitroglycerin. Acute chest pain Although patient has a history of CAD, he exhibits some typical and atypical features. EKG reviewed, shows incomplete right bundle branch block. Cardiology was consulted. Due to bradycardia, will refrain from using beta-alise. Continue aspirin 81 mg daily. Also cardiology started Imdur 30 mg p.o. daily. We will check troponins x2 as well as EKG x2. Diabetes mellitus In August 2016, his hemoglobin A1c was 6.9. Does not have any diabetic medications on home medications. Patient will likely benefit from metformin 500 mg twice daily upon discharge. For now we will continue sliding scale insulin as needed. Goal blood glucose [id number]. Hypertension Patient is currently normotensive. If needed, will consider JOSE MIGUEL inhibitor or preferably ARB. Tobacco abuse Patient is very clear that he does not want to quit smoking. Full code. Lovenox.
[2018-07-11] MEDS ORDERED: Enoxaparin Inj 40 MG/0.4 ML Syringe SQ SCH (16:00)
--- NOTE | 2018-07-11 16:26 | P.CONCA ---
History of Present Illness Service: Cardiology Consult date: 07/11/18 Reason for Consult: Chest pain relieved by nitro Primary Care Provider: No Primary Care Physician History of Present Illness: This is a 78-year-old male with a past medical history of angina pectoris, CAD with stents, hypertension, myocardial infarction and smoking. He presented to the Emergency Department today with complaints of four episodes of sharp left sided chest pain that was relieved by nitro. He denied any other symptoms during these episodes. He stated that he is currently being evaluated at the [facility] in [facility] for coronary artery bypass surgery. He had a cardiac catheterization 1 month ago and was told that he had multiple vessel disease that could not be fixed by catheterization. He currently denies any CP, pressure , palpitations, dizziness, edema or SOB. Troponin levels are less than 0.02 and EKG shows no acute process. He is requesting to let the [facility] in [facility] handle the bypass surgery and that he does not want to have it here if possible. 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 - Medical History Medical History: Medical History (Last Reviewed 07/11/18 @ 13:48 by Zulema Marti MD) Angina pectoris Diabetes mellitus HTN (hypertension) Myocardial infarction - Surgical History Surgical History: Surgical History (Last Reviewed 07/11/18 @ 13:48 by Zulema Marti MD) History of carpal tunnel surgery of left wrist History of heart artery stent - Tobacco History Tobacco Use In Past 30 Days: Yes Smoking Status: Current every day smoker Tobacco Type: Cigarettes - Alcohol History How Often Do You Have a Drink Containing Alcohol: Never - Substance Use History Substance History: No History of Abuse - Travel History Recent Travel in the [facility] Within the Last 8 Weeks: No Recent Travel Out of the Country Within the Last 8 Weeks: No - Immunization History Tetanus Immunization: >5 Years Medications and Allergies Allergies Allergy/AdvReac Type Severity Reaction Status Date / Time quinine Allergy Severe UPPER Verified 07/11/18 13:40 EXTREMITIES BLEED penicillin G Allergy Mild UNK Verified 07/11/18 13:40 Sulfa (Sulfonamide Allergy Mild UNK Verified 07/11/18 13:40 Antibiotics) Home Medications Medication Instructions Recorded Confirmed Type aspirin 81 mg PO DAILY 07/11/18 07/11/18 History lisinopril PO DAILY 07/11/18 History Active Medications: Active Medications Acetaminophen (Tylenol) 650 mg PO Q4H PRN PRN Reason: Headache, fever, pain 1-4 Al Hydroxide/Mg Hydroxide (Milk Of Magnesia Liq) 30 ml PO Q12H PRN PRN Reason: Mild Constipation Bisacodyl (Dulcolax Supp) 10 mg RECTAL DAILY PRN PRN Reason: SEVERE CONSITIPATION Enoxaparin Sodium (Lovenox Inj) 40 mg SQ Q24H RIP Lactulose (Lactulose Liq) 30 ml PO DAILY PRN PRN Reason: SEVERE CONSITIPATION Ondansetron HCl (Zofran Inj) 4 mg IV.PUSH Q6H PRN PRN Reason: NAUSEA OR VOMITING Sennosides (Senokot) 17.2 mg PO Q12H PRN PRN Reason: Moderate Constipation Sodium Chloride (Ns Flush) 2 ml IV.FLUSH BID RIP Sodium Chloride (Ns Flush) 2 ml IV.FLUSH PRN PRN PRN Reason: FLUSH AFTER USING IV ACCESS Exam Vital signs: Vital Signs 07/11/18 13:33 07/11/18 13:39 07/11/18 13:59 Pulse Rate 72 44 L 48 L Respiratory Rate 20 Blood Pressure 142/68 H Pulse Oximetry 96 97 07/11/18 15:39 Pulse Rate 48 L Respiratory Rate 18 Blood Pressure 133/62 Pulse Oximetry 96 Intake & Output 07/10/18 07/11/18 07/11/18 18:59 06:59 18:59 Weight 67.585 kg - Constitutional no acute distress - Routine HEENT Exam Head: Present: normocephalic Eye: Present: PERRL ENT: Present: mucous membranes moist - Routine Neck Exam Present: full ROM - Routine Respiratory Exam Present: CTA bilaterally - Routine Cardiovascular Exam Present: S1, S2. Absent: murmur, gallop, rubs - Routine Abdominal Exam Present: normoactive bowel sounds - Routine Extremities Exam Present: edema, full ROM, pulses intact, normal capillary refill. Absent: cyanosis, clubbing Comments: lower extremities are red and warm to touch. - Routine Skin Exam Present: intact - Routine Neurological Exam Present: oriented X3 Results 07/11/18 13:41 07/11/18 13:41 Cardiac Enzymes 07/11/18 07/11/18 Range/Units 13:41 13:41 AST 32 (15-37) U/L Troponin I Less than 0.02 L (0.02-0.05) ng/mL B-Natriuretic Peptide 65 (0-100) pg/mL Coagulation 07/11/18 07/11/18 Range/Units 13:41 13:41 PT 10.9 (9.8-11.6) sec APTT 28.0 (23.4-31.7) sec B-Natriuretic Peptide 65 (0-100) pg/mL CBC 07/11/18 Range/Units 13:41 WBC 7.2 (4.0-11.0) th/mm3 RBC 4.74 (4.50-5.90) mil/mm3 Hgb 14.7 (13.0-17.0) gm/dL Hct 43.6 (39.0-51.0) % Plt Count 167 (150-450) th/mm3 Neut # (Auto) 4.4 (1.8-7.7) th/mm3 Lymph # (Auto) 1.8 (1.0-4.8) th/mm3 [place] # (Auto) 0.6 (0.0-0.9) th/mm3 Eos # (Auto) 0.2 (0.0-0.4) th/mm3 Baso # (Auto) 0.1 (0.0-0.2) th/mm3 Comprehensive Metabolic Panel 07/11/18 Range/Units 13:41 Sodium 140 (136-145) meq/L Potassium 4.6 (3.5-5.1) meq/L Chloride 108 H (98-107) meq/L Carbon Dioxide 27.8 (21.0-32.0) meq/L BUN 22 H (7-18) mg/dL Creatinine 1.00 (0.60-1.30) mg/dL Calcium 8.1 L (8.5-10.1) mg/dL AST 32 (15-37) U/L ALT 54 (12-78) U/L Alkaline Phosphatase 1197 H (45-117) U/L Total Protein 7.1 (6.4-8.2) g/dL Albumin 3.4 (3.4-5.0) g/dL Intake and Output 07/11/18 07/11/18 07/11/18 06:59 14:59 22:59 Other: Weight 67.585 kg Patient Weight 07/12/18 06:59 Weight 67.585 kg - Imaging and Cardiology Imaging: Impressions Chest X-Ray 07/11/18 13:43 CONCLUSION: The lungs are clear. Assessment and Plan - Assessment (1) Chest pain Code(s): R07.9 - Chest pain, unspecified Status: Acute (2) Hypertension Code(s): I10 - Essential (primary) hypertension Status: Acute (3) CAD (coronary artery disease) Code(s): I25.10 - Atherosclerotic heart disease of [place] coronary artery without angina pectoris Status: Acute (4) Diabetes mellitus Code(s): E11.9 - Type 2 diabetes mellitus without complications Status: Acute (5) History of [place] (myocardial infarction) Code(s): I25.2 - Old myocardial infarction Status: Acute (6) History of heart artery stent Code(s): Z95.5 - Presence of coronary angioplasty implant and graft Status: Acute - Plan Patient had cardiac catheterization last month at the [facility] in [facility], will try to obtain those records today. Continue anticoagulation. We will start Imdur 30 mg QD for angina. He is currently SB in the 40's, will hold off starting a BB at this time due to HR. He is requesting to be further evaluated at the [facility] in [facility]. Continue to monitor the patient on telemetry. We will continue to follow him during his hospitalization. The patient was seen and evaluated by Dr. Jones who participated in care, management and decision making. - Attending Attestation Patient seen and examined. I reviewed and agree with the evaluation and plan as presented. Titrate therapy for angina. He was apparently referred for CABG after recent cath. He does not wish to be evaluated for CABG here. Recommend to DC home once stable. He wishes to f/u at [facility].
[2018-07-11] MEDS: Isosorbide Mononitrate 30 MG ER 24HR Tablet (Imdur) PO SCH (18:28)
[2018-07-12] MEDS: Isosorbide Mononitrate 30 MG ER 24HR Tablet (Imdur) PO SCH (08:17)
--- NOTE | 2018-07-12 11:37 | P.PNIM ---
Subjective Interval history: Follow-up visit chest pain, HTN, HLD, DM 2, CAD with stent placement. Patient seen and examined today. Reports he is not having chest pain anymore and wanted to go home. Discussed extensively with patient results of labs that has been reviewed. 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 Denies pain and discomfort. Denies SOB/ dyspnea. Denies chest pain, palpitations, headaches, dizziness. Denies fevers, chills, n/v/d. Denies dysuria. Physical Exam Vital signs: Vital Signs 07/11/18 13:33 07/11/18 13:39 07/11/18 13:59 Temperature Pulse Rate 72 44 L 48 L Respiratory Rate 20 Blood Pressure 142/68 H Pulse Oximetry 96 97 07/11/18 15:39 07/11/18 20:00 07/11/18 20:28 Temperature 97.9 F Pulse Rate 48 L 71 66 Respiratory Rate 18 18 Blood Pressure 133/62 104/61 Pulse Oximetry 96 94 L 07/12/18 00:00 07/12/18 04:00 07/12/18 08:00 Temperature 97.7 F 97.6 F 97.9 F Pulse Rate 66 66 69 Respiratory Rate 18 18 16 Blood Pressure 111/65 138/88 120/69 Pulse Oximetry 95 98 99 07/12/18 09:29 Temperature Pulse Rate Respiratory Rate Blood Pressure Pulse Oximetry 100 Intake & Output 07/11/18 07/12/18 07/12/18 18:59 06:59 18:59 Intake Total 480 / 480 Balance 480 / 480 Weight 67 kg Intake: Oral 480 / 480 Other: # Voids 3 Date of Last Bowel Movement 07/11/18 07/11/18 Weight On Admission 67 kg Narrative: GENERAL: This is a thin appearing elderly male, well-developed patient, in no apparent distress. SKIN: Warm and dry. HEENT: Normocephalic. Pupils equal round and reactive. Nose without bleeding. Airway patent. Bearded. NECK: Trachea midline. CARDIOVASCULAR: Regular rate and rhythm with faint murmurs. No gallops, or rubs. RESPIRATORY: Clear to auscultation. Breath sounds equal bilaterally. No wheezes , rales, or rhonchi. GASTROINTESTINAL: Abdomen soft, non-tender, nondistended. Bowel Sounds normoactive x4. MUSCULOSKELETAL: Extremities without clubbing, cyanosis, or edema. NEUROLOGICAL: Awake and alert. No focal neuro deficit. Moves all extremities. Normal speech. Results Labs CBC & Chem 7: 07/11/18 13:41 07/11/18 13:41 Imaging Imaging: Impressions Chest X-Ray 07/11/18 13:43 CONCLUSION: The lungs are clear. Assessment and Plan (1) Chest pain: Code(s): R07.9 - Chest pain, unspecified Status: Acute (2) Hypertension: Code(s): I10 - Essential (primary) hypertension Status: Acute (3) CAD (coronary artery disease): Code(s): I25.10 - Atherosclerotic heart disease of [place] coronary artery without angina pectoris Status: Acute (4) Diabetes mellitus: Code(s): E11.9 - Type 2 diabetes mellitus without complications Status: Acute (5) History of [place] (myocardial infarction): Code(s): I25.2 - Old myocardial infarction Status: Acute (6) History of heart artery stent: Code(s): Z95.5 - Presence of coronary angioplasty implant and graft Status: Acute Plan Mr. Chavez is a very pleasant 78-year-old with a history of coronary artery disease who presents to the emergency department on 07/11/2018 due to acute onset of sharp left-sided chest pain without any radiation or association with nausea vomiting or diaphoresis. His symptoms indeed improved with nitroglycerin. Acute chest pain Patient has a history of CAD, he exhibits some typical and atypical features. EKG reviewed, shows incomplete right bundle branch block. Cardiology was consulted, and has seen the patient. Patient refuse to be worked up in the facility and wanting to go to [facility]. Refrain from beta-alise, noted bradycardia on admission Continue aspirin 81 mg daily. Imdur 30 mg p.o. daily, started by cardiology Troponins have been negative. No significant changes on the EKG, shows incomplete right bundle branch block, sinus rhythm Diabetes mellitus type 2 In August 2016, his hemoglobin A1c was 6.9. This has been extensively discussed with patient. States he was previously on metformin but in the past 6 months he took himself off of it and change his diet and states that his blood sugar was never above 280, or below 90. Discussed with patient compliance with medication for now until he goes back to his PCP and check his hemoglobin A1c. Discussed proteinuria in his urine that he would benefit with continuing his metformin and lisinopril low dose. States that he is taking 10 mg of lisinopril at home. Patient is agreeable. States that he still has 3 bottles of metformin at home. Will discharge Patient with metformin 500 mg twice daily Hypertension Patient is currently normotensive. He will need to continue his home dose lisinopril. Avoid use of beta- alise Tobacco abuse Patient is very clear that he does not want to quit smoking. Full code. Lovenox. Discharge patient to home Condition on discharge: Improved Cardiac/diabetic diet as tolerated Ad Edel activity Rx written: Imdur 30 mg, metformin 500 mg twice daily, lisinopril 10 mg daily Follow-up with primary care physician in the [place], follow up with flat grinder operator in [facility] for evaluation for possible CABG Code Status: Full code Discussed Condition With: Patient, nursing, Dr. Beckwith Discharge Planning: Plan to discharge home today when cleared by cardiology Progress Note: Quality VTE Deep Vein Thrombosis/Pulmonary Embolism Present on Admission: No _ (1) Chest pain Qualifiers: Chest pain type: Ischemic chest pain type: (2) Hypertension Qualifiers: Hypertension type: (3) CAD (coronary artery disease) Qualifiers: Coronary Disease-Associated Artery/Lesion type: [place] vs. 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
[2018-07-12 12:30] VITALS: BP 121/71; PULSE 71; RESP 15; TEMP 97.6; O2SAT 98
--- NOTE | 2018-07-12 14:04 | P.PNCA ---
Subjective Interval history: Patient denies any CP, pressure, palpitations, dizziness, edema or SOB. Medications and Allergies Allergies Allergy/AdvReac Type Severity Reaction Status Date / Time quinine Allergy Severe UPPER Verified 07/11/18 13:40 EXTREMITIES BLEED penicillin G Allergy Mild UNK Verified 07/11/18 13:40 Sulfa (Sulfonamide Allergy Mild UNK Verified 07/11/18 13:40 Antibiotics) Home Medications Medication Instructions Recorded Confirmed Type aspirin 81 mg PO DAILY 07/11/18 07/11/18 History Active Medications: Active Medications Acetaminophen (Tylenol) 650 mg PO Q4H PRN PRN Reason: Headache, fever, pain 1-4 Al Hydroxide/Mg Hydroxide (Milk Of Magnesia Liq) 30 ml PO Q12H PRN PRN Reason: Mild Constipation Aspirin (Aspirin Chew) 81 mg PO DAILY [facility] Last Admin: 07/12/18 08:17 Dose: 81 mg Bisacodyl (Dulcolax Supp) 10 mg RECTAL DAILY PRN PRN Reason: SEVERE CONSITIPATION Enoxaparin Sodium (Lovenox Inj) 40 mg SQ Q24H [facility] Last Admin: 07/11/18 16:20 Dose: 40 mg Isosorbide Mononitrate (Imdur) 30 mg PO DAILY@0700 [facility] Last Admin: 07/12/18 08:17 Dose: 30 mg Lactulose (Lactulose Liq) 30 ml PO DAILY PRN PRN Reason: SEVERE CONSITIPATION Ondansetron HCl (Zofran Inj) 4 mg IV.PUSH Q6H PRN PRN Reason: NAUSEA OR VOMITING Sennosides (Senokot) 17.2 mg PO Q12H PRN PRN Reason: Moderate Constipation Sodium Chloride (Ns Flush) 2 ml IV.FLUSH BID [facility] Last Admin: 07/12/18 08:17 Dose: 2 ml Sodium Chloride (Ns Flush) 2 ml IV.FLUSH PRN PRN PRN Reason: FLUSH AFTER USING IV ACCESS Physical Exam Vital signs: Vital Signs 07/11/18 13:59 07/11/18 15:39 07/11/18 20:00 Temperature 97.9 F Pulse Rate 48 L 48 L 71 Respiratory Rate 18 18 Blood Pressure 133/62 104/61 Pulse Oximetry 97 96 94 L 07/11/18 20:28 07/12/18 00:00 07/12/18 04:00 Temperature 97.7 F 97.6 F Pulse Rate 66 66 66 Respiratory Rate 18 18 Blood Pressure 111/65 138/88 Pulse Oximetry 95 98 07/12/18 08:00 07/12/18 09:29 07/12/18 12:00 Temperature 97.9 F 97.6 F Pulse Rate 69 71 Respiratory Rate 16 15 Blood Pressure 120/69 121/71 Pulse Oximetry 99 100 98 Intake & Output 07/11/18 07/12/18 07/12/18 18:59 06:59 18:59 Intake Total 480 / 480 Balance 480 / 480 Weight 67 kg Intake: Oral 480 / 480 Other: # Voids 3 Date of Last Bowel Movement 07/11/18 07/11/18 07/11/18 Weight On Admission 67 kg - Constitutional no acute distress - Routine HEENT Exam Head: Present: normocephalic Eye: Present: PERRL ENT: Present: mucous membranes moist - Routine Neck Exam Present: supple - Routine Respiratory Exam Present: CTA bilaterally - Routine Cardiovascular Exam Present: S1, S2. Absent: murmur, gallop, rubs - Routine Abdominal Exam Present: normoactive bowel sounds - Routine Extremities Exam Present: full ROM, pulses intact, normal capillary refill. Absent: cyanosis, clubbing, edema - Routine Skin Exam Present: intact - Routine Neurological Exam Present: oriented X3 - Detailed Neurological Exam: Coma Scale Eye Opening: Spontaneous Verbal Response: Oriented Motor Response: Obey commands [place] Coma Scale Total: 15 - Routine Psychiatric Exam Present: normal affect Results 07/11/18 13:41 07/11/18 13:41 Cardiac Enzymes 07/11/18 07/11/18 07/11/18 Range/Units 13:41 13:41 19:35 AST 32 (15-37) U/L Troponin I Less than 0.02 L Less than 0.02 L (0.02-0.05) ng/mL B-Natriuretic Peptide 65 (0-100) pg/mL 07/12/18 Range/Units 01:30 AST (15-37) U/L Troponin I Less than 0.02 L (0.02-0.05) ng/mL B-Natriuretic Peptide (0-100) pg/mL Coagulation 07/11/18 07/11/18 Range/Units 13:41 13:41 PT 10.9 (9.8-11.6) sec APTT 28.0 (23.4-31.7) sec B-Natriuretic Peptide 65 (0-100) pg/mL CBC 07/11/18 Range/Units 13:41 WBC 7.2 (4.0-11.0) th/mm3 RBC 4.74 (4.50-5.90) mil/mm3 Hgb 14.7 (13.0-17.0) gm/dL Hct 43.6 (39.0-51.0) % Plt Count 167 (150-450) th/mm3 Neut # (Auto) 4.4 (1.8-7.7) th/mm3 Lymph # (Auto) 1.8 (1.0-4.8) th/mm3 Todd # (Auto) 0.6 (0.0-0.9) th/mm3 Eos # (Auto) 0.2 (0.0-0.4) th/mm3 Baso # (Auto) 0.1 (0.0-0.2) th/mm3 Comprehensive Metabolic Panel 07/11/18 Range/Units 13:41 Sodium 140 (136-145) meq/L Potassium 4.6 (3.5-5.1) meq/L Chloride 108 H (98-107) meq/L Carbon Dioxide 27.8 (21.0-32.0) meq/L BUN 22 H (7-18) mg/dL Creatinine 1.00 (0.60-1.30) mg/dL Calcium 8.1 L (8.5-10.1) mg/dL AST 32 (15-37) U/L ALT 54 (12-78) U/L Alkaline Phosphatase 1197 H (45-117) U/L Total Protein 7.1 (6.4-8.2) g/dL Albumin 3.4 (3.4-5.0) g/dL Intake and Output 07/11/18 07/12/18 07/12/18 22:59 06:59 14:59 Intake Total 480 / 480 Balance 480 / 480 Intake: Oral 480 / 480 Other: # Voids 3 Date of Last Bowel Movement 07/11/18 07/11/18 Weight 67 kg Weight On Admission 67 kg - Imaging and Cardiology Imaging: Impressions Chest X-Ray 07/11/18 13:43 CONCLUSION: The lungs are clear. Assessment and Plan - Assessment (1) Chest pain Code(s): R07.9 - Chest pain, unspecified Status: Acute (2) Hypertension Code(s): I10 - Essential (primary) hypertension Status: Acute (3) CAD (coronary artery disease) Code(s): I25.10 - Atherosclerotic heart disease of [place] coronary artery without angina pectoris Status: Acute (4) Diabetes mellitus Code(s): E11.9 - Type 2 diabetes mellitus without complications Status: Acute (5) History of GA (myocardial infarction) Code(s): I25.2 - Old myocardial infarction Status: Acute (6) History of heart artery stent Code(s): Z95.5 - Presence of coronary angioplasty implant and graft Status: Acute - Plan Troponin levels are not trending and EKG shows no acute changes, negative for ACS. Continue Imdur 30 mg QD, angina now resolved. Continue anticoagulation with ASA. 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 The patient was seen and evaluated by Dr. Jones who participated in care, management and decision making. - Attending Attestation Patient seen and examined. I reviewed and agree with the evaluation and plan as presented. No recurrent angina. Continue current program. DC home. F/u at [facility] for the consideration of coronary bypass.
--- NOTE | 2018-07-12 17:38 | ECG ---
Date Performed: 07/11/2018 Time Performed: 13:36:13 PTAGE: 78 years EKG: Sinus rhythm LOW QRS VOLTAGE IN PRECORDIAL LEADS INCOMPLETE RIGHT BUNDLE BRANCH BLOCK INFERIOR MYOCARDIAL INFARCT ION, AGE INDETERMINATE PROBABLE ANTEROLATERAL MYOCARDIAL INFARCTION ABNORMAL ECG NO PREVIOUS TRACING DOCTOR: Quique Melchor Interpretating Date/Time 07/12/2018 17:35:40
--- NOTE | 2018-07-12 17:38 | ECG ---
Date Performed: 07/11/2018 Time Performed: 19:06:32 PTAGE: 78 years EKG: Sinus rhythm LOW QRS VOLTAGE IN PRECORDIAL LEADS INCOMPLETE RIGHT BUNDLE BRANCH BLOCK CONSIDER ANTERIOR MYOCARDIA L INFARCTION, AGE INDETERMINATE INFERIOR MYOCARDIAL INFARCTION, AGE INDETERMINATE ABNORMAL ECG PREVIOUS TRACING : 07/11/2018 13.36 DOCTOR: Quique Melchor Interpretating Date/Time 07/12/2018 17:36:06
--- NOTE | 2018-07-12 17:38 | ECG ---
Date Performed: 07/12/2018 Time Performed: 00:16:35 PTAGE: 78 years EKG: Sinus rhythm WITH SHORT CO INTERVAL LOW QRS VOLTAGE INCOMPLETE RIGHT BUNDLE BRANCH BLOCK INFERIOR MYOCARDIAL INFA RCTION, AGE INDERTERMINATE CONSIDER ANTEROSEPTAL CO, AGE INDETERMINATE ABNORMAL ECG PREVIOUS TRACING : 07/11/2018 19.06 DOCTOR: Quique Melchor Interpretating Date/Time 07/12/2018 17:36:27
== END 2018-07-12 14:08 | disposition home or self-care (01) ==
LOC: NEDA 13:24 → NEPD 13:24 → NEPHCDU 16:30
PROVIDERS: ADMIT Hospitalist; ATTEND Hospitalist
CPT/HCPCS: 71010; 71045; 80053; 83520; 83880; 84484; 85025; 85610; 85730; 93005; 96372; 99285; G0378; J1650